=== PATIENT | female | born 1945 | race Caucasian/White ===

== ENCOUNTER 2022-04-08 09:42 | Outpatient (CLI) | payer MEDICARE, BC, SELFPAY | END 2022-04-08 09:43 | disposition home or self-care (01) | PROVIDERS: PCP Physician Assistant; Visit Provider Family Medicine | DX: M54.16 Radiculopathy, lumbar region (principal) | CPT/HCPCS: 64483; 64484; J1100; Q9966 ==

== ENCOUNTER 2022-05-16 13:05 | Outpatient (CLI) | payer MEDICARE, BC, SELFPAY ==
--- OUTSIDE RECORDS SUMMARY | 2022-05-16 13:08 | XMS_ITS | Encounter Summary ---
:1945 Author Organization [facility] Address [address] [place] [address] Care Team Providers Name Role Phone [facility] Unavailable [phone] Sita Koroma Primary Care Provider Encounter Details Date Type Department Care Team Description 08/19/2021 Travel Social History Tobacco Use Types Packs/Day Years Used Date Smoking Tobacco: Never Smokeless Tobacco: Never Alcohol Use Standard Drinks/Week Comments Not Currently 0 (1 standard drink = 0.6 oz pure alcoho l) Sex Assigned at Date Recorded Female 06/25/2021 3:37 PM CDT COVID-19 Exposure Response Date Recorded In the last month, have you been in contact with No / Unsure 08/19/2021 10:55 AM TOBACCO BUYER someone who was confirmed or suspected to have Coronavirus / COVID-19? documented as of this encounter Plan of Treatment Not on filedocumented as of this encounter Visit Diagnoses Not on filedocumented in this encounter Care Teams Picker And Sorter Load And Unload Relationship Specialty Start Date End Date [facility] PCP - Primary Care Clinic [place] [address] [place] [phone] Sita Koroma PCP - General Family Medicine 06/24/21 [address] [place] [address] documented as of this encounter
--- OUTSIDE RECORDS SUMMARY | 2022-05-16 13:08 | XMS_ITS | Encounter Summary ---
:1945 Author Organization [facility] Address [address] [place] [address] Care Team Providers Name Role Phone [facility] Unavailable [phone] Sita Koroma Primary Care Provider Encounter Details Date Type Department Care Team Description 11/14/2021 Travel Social History Tobacco Use Types Packs/Day Years Used Date Smoking Tobacco: Never Smokeless Tobacco: Never Alcohol Use Standard Drinks/Week Comments Not Currently 0 (1 standard drink = 0.6 oz pure alcoho l) Sex Assigned at Date Recorded Female 06/25/2021 3:37 PM CDT COVID-19 Exposure Response Date Recorded In the last month, have you been in contact Unable to assess 11/14/2021 7:15 AM CDT with someone who was confirmed or suspected to have Coronavirus / COVID-19? documented as of this encounter Plan of Treatment Not on filedocumented as of this encounter Visit Diagnoses Not on filedocumented in this encounter Care Teams Therapeutic Radiologist Relationship Specialty Start Date End Date [facility] PCP - Primary Care Clinic [place] [address] [place] [phone] Sita Koroma PCP - General Family Medicine 06/24/21 [address] [place] [address] documented as of this encounter
--- OUTSIDE RECORDS SUMMARY | 2022-05-16 13:08 | XMS_ITS | Encounter Summary ---
:1945 Author Organization [facility] Address [address] [place] [address] Care Team Providers Name Role Phone [facility] Unavailable [phone] Sita Koroma Primary Care Provider Encounter Details Date Type Department Care Team Description 08/12/2021 Travel Social History Tobacco Use Types Packs/Day Years Used Date Smoking Tobacco: Never Smokeless Tobacco: Never Alcohol Use Standard Drinks/Week Comments Not Currently 0 (1 standard drink = 0.6 oz pure alcoho l) Sex Assigned at Date Recorded Female 06/25/2021 3:37 PM CDT COVID-19 Exposure Response Date Recorded In the last month, have you been in contact with No / Unsure 08/12/2021 10:40 AM FUND ACCOUNTING MANAGER someone who was confirmed or suspected to have Coronavirus / COVID-19? documented as of this encounter Plan of Treatment Not on filedocumented as of this encounter Visit Diagnoses Not on filedocumented in this encounter Care Teams Distribution Dispatcher Relationship Specialty Start Date End Date [facility] PCP - Primary Care Clinic [place] [address] [place] [phone] Sita Koroma PCP - General Family Medicine 06/24/21 [address] [place] [address] documented as of this encounter
--- OUTSIDE RECORDS SUMMARY | 2022-05-16 13:08 | XMS_ITS | Encounter Summary ---
:1945 Author Organization [facility] Address [address] [place] [address] Care Team Providers Name Role Phone [facility] Unavailable [phone] Sita Koroma Primary Care Provider Reason for Visit Reason Comments Memory loss Other (Routine) - Authorized Specialty Diagnoses / Procedures Referred By Contact Refer red To Contact Diagnoses Memory deficit Eli Srivastava MD Procedures [facility] OT APPOINTMENT [address] [place] [address] Referral ID Status Reason Start Date Expiration Date Visits V isits Requested Authorized [id number] Authorized 08/05/2021 8 8 Encounter Details Date Type Department Care Team Description 08/12/2021 Occupational Therapy [facility] Nahum Kerns M leeds deficit (Primary Dx); of Neurology - [place] OT Impaired instrumental activi ties of daily living (IADL) [address] [phone] Social History Tobacco Use Types Packs/Day Years Used Date Smoking Tobacco: Never Smokeless Tobacco: Never Alcohol Use Standard Drinks/Week Comments Not Currently 0 (1 standard drink = 0.6 oz pure alcoho l) Sex Assigned at Date Recorded Female 06/25/2021 3:37 PM CDT COVID-19 Exposure Response Date Recorded In the last month, have you been in contact with No / Unsure 08/12/2021 10:40 AM DATABASE DESIGN ANALYST someone who was confirmed or suspected to have Coronavirus / COVID-19? documented as of this encounter Progress Notes Nahum Kerns OT - 08/12/2021 11:00 AM CST [facility] of Neurology [facility] Services Outpatient Occupational Therapy Progress Note Reason for Visit: Memory loss SUBJECTIVE Tameka Alexia Hale, a 76 y.o. female presents today. Pt reports continued difficulty gettingthings accomplished each day as she struggles to get motivated. Pt does acknowledge difficulty with depression and anxiety at times. OBJECTIVE Current Objective Findings: None today Today's Intervention: Self-Care/home management x60 mins OT took time to review pt's current scheduling system and new calendar for 2021. Pt currently keeps 3-4 calendars all throughout the house-pt occasionally checks all of them throughout the days. OT encouraged pt to utilize only x1 calendar to ensure accuracy and waste time transferring info into 4 locations. In addition, OT instructed pt to sit down with urban planner each morning and write out activities to better organize her day. OT assisted patient with completing urban planner for today as well as organize activities for rest of theweek. Pt will trial this week and report back next week. OT also answered questions regarding diagnosis, treatments, scans, and neuropsych testing. Interventions discussed with patient and consent obtained. Treatment Time: Timed code treatment minutes: 60 minutes. Total time: 60 minutes. Current home exercise program list: memory, urban planner org ASSESSMENT Pt left session very motivated and pleased with new organization system and plan for the week ahead.Pt would benefit significantly from increased daily planning and regular routines which include exercise, socialization and cognitive challenges. Cont OT 1x per week. Certification Period Start Date: 08/05/21 End Date: 11/03/21 ?? Goals: Short-term goals to be met in 6 weeks: -Patient will verbalize/demonstrate understanding of cognitive home program to work towards improved cognitive functioning for ADLs/IADLs. ?? Long-term goals to be met in 12 weeks: -Patient/family will verbalize understanding of cognitive assessment results and recommendations forsafety at home. -Patient will verbalize/demonstrate understanding of compensatory memory strategies to allow for increased independence with (i.e. medications, daily schedule, home management). PLAN Contextual memory test, review urban planner use. Occurrence Codes: Date of Onset of Impairment: 07/29/2021 Date of OT Care Plan Established or Reviewed: 08/05/2021 Date OT Treatment Started: 08/05/2021 TOB: 743 Nahum Kerns OT BASE DESIGN ANALYST documented in this encounter Plan of Treatment Not on filedocumented as of this encounter Visit Diagnoses Diagnosis Memory deficit - Primary Memory loss Impaired instrumental activities of basilio y living (IADL) documented in this encounter Care Teams Manager Rfid Relationship Specialty Start Date End [facility] [place] [address] [place] [phone] Sita Koroma PCP - General Family Medicine 06/24/21 [address] [place] [address] documented as of this encounter
--- OUTSIDE RECORDS SUMMARY | 2022-05-16 13:08 | XMS_ITS | Encounter Summary ---
:1945 Author Organization [facility] Address [address] [place] [address] Care Team Providers Name Role Phone [facility] Unavailable [phone] Sita Koroma Primary Care Provider Encounter Details Date Type Department Care Team Description 09/16/2021 Travel Social History Tobacco Use Types Packs/Day Years Used Date Smoking Tobacco: Never Smokeless Tobacco: Never Alcohol Use Standard Drinks/Week Comments Not Currently 0 (1 standard drink = 0.6 oz pure alcoho l) Sex Assigned at Date Recorded Female 06/25/2021 3:37 PM CDT COVID-19 Exposure Response Date Recorded In the last month, have you been in contact with No / Unsure 09/16/2021 11:05 AM SAWMILL MANAGER someone who was confirmed or suspected to have Coronavirus / COVID-19? documented as of this encounter Plan of Treatment Not on filedocumented as of this encounter Visit Diagnoses Not on filedocumented in this encounter Care Teams Impregnator And Drier Helper Relationship Specialty Start Date End Date [facility] PCP - Primary Care Clinic [place] [address] [place] [phone] Sita Koroma PCP - General Family Medicine 06/24/21 [address] [place] [address] documented as of this encounter
--- OUTSIDE RECORDS SUMMARY | 2022-05-16 13:08 | XMS_ITS | Encounter Summary ---
:[address] [facility] Address [address] [place] [address] Care Team Providers Name Role Phone [facility] Unavailable [phone] Sita Koroma Primary Care Provider Encounter Details Date Type Department Care Team Description 09/09/2021 Travel Social History Tobacco Use Types Packs/Day Years Used Date Smoking Tobacco: Never Smokeless Tobacco: Never Alcohol Use Standard Drinks/Week Comments Not Currently 0 (1 standard drink = 0.6 oz pure alcoho l) Sex Assigned at Date Recorded Female 06/25/2021 3:37 PM CDT COVID-19 Exposure Response Date Recorded In the last month, have you been in contact with No / Unsure 09/09/2021 11:04 AM VETERINARY ASSISTANT TECHNICIAN someone who was confirmed or suspected to have Coronavirus / COVID-19? documented as of this encounter Plan of Treatment Not on filedocumented as of this encounter Visit Diagnoses Not on filedocumented in this encounter Care Teams Dovetailer Relationship Specialty Start Date End Date [facility] PCP - Primary Care Clinic [place] [address] [place] [address] Sita Koroma PCP - General Family Medicine 06/24/21 [address] [place] [address] documented as of this encounter
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
--- OUTSIDE RECORDS SUMMARY | 2022-05-16 13:08 | XMS_ITS | Encounter Summary ---
:1945 Author Organization [facility] Address [address] [place] [address] Care Team Providers Name Role Phone [facility] Unavailable [phone] Sita Koroma Primary Care Provider Encounter Details Date Type Department Care Team Description 09/04/2021 Travel Social History Tobacco Use Types Packs/Day Years Used Date Smoking Tobacco: Never Smokeless Tobacco: Never Alcohol Use Standard Drinks/Week Comments Not Currently 0 (1 standard drink = 0.6 oz pure alcoho l) Sex Assigned at Date Recorded Female 06/25/2021 3:37 PM CDT COVID-19 Exposure Response Date Recorded In the last month, have you been in contact Unable to assess 09/04/2021 7:21 AM MARINE SERVICE OPERATOR with someone who was confirmed or suspected to have Coronavirus / COVID-19? documented as of this encounter Plan of Treatment Not on filedocumented as of this encounter Visit Diagnoses Not on filedocumented in this encounter Care Teams Tailing Hand Relationship Specialty Start Date End Date [facility] PCP - Primary Care Clinic [place] [address] [place] [phone] Sita Koroma PCP - General Family Medicine 06/24/21 [address] [place] [address] documented as of this encounter
--- OUTSIDE RECORDS SUMMARY | 2022-05-16 13:08 | XMS_ITS | Encounter Summary ---
:1945 Author Organization [facility] Address [address] [place] [id number] Care Team Providers Name Role Phone [facility] Unavailable [phone] Sita Koroma Primary Care Provider Reason for Visit Reason Comments Memory loss Other (Routine) - Authorized Specialty Diagnoses / Procedures Referred By Contact Refer red To Contact Diagnoses Memory deficit Eli Srivastava MD Procedures [facility] OT APPOINTMENT [address] [place] [address] Referral ID Status Reason Start Date Expiration Date Visits V isits Requested Authorized [id number] Authorized 08/05/2021 8 8 Encounter Details Date Type Department Care Team Description 09/02/2021 Occupational Therapy [facility] Nahum Kerns M [place] deficit (Primary Dx); of Neurology - [place] OT Impaired instrumental activi ties of daily living (IADL) [address] [id number] Social History Tobacco Use Types Packs/Day Years Used Date Smoking Tobacco: Never Smokeless Tobacco: Never Alcohol Use Standard Drinks/Week Comments Not Currently 0 (1 standard drink = 0.6 oz pure alcoho l) Sex Assigned at Date Recorded Female 06/25/2021 3:37 PM CDT COVID-19 Exposure Response Date Recorded In the last month, have you been in contact with No / Unsure 09/02/2021 11:53 AM [facility] someone who was confirmed or suspected to have Coronavirus / COVID-19? documented as of this encounter Progress Notes Nahum Kerns OT - 09/02/2021 11:45 AM CST [facility] of Neurology Rehabilitation Services Outpatient Occupational Therapy Progress Note Reason for Visit: Memory loss SUBJECTIVE Tameka Hale, a 76 y.o. female presents today. Pt reports no new concerns OBJECTIVE Current Objective Findings: none today Today's Intervention: Therapeutic activities [id number] -Took time to review current status and events over holidays. Pt reports good success with managing schedule and tasks required for hosting during holidays. Pt has not been able to trial many cognitivehome programs due to busy schedule. Pt reports increased concerns with regards to daily night sweats and now lack of sleep. Pt has questions with regards to reduction in klonopin. OT strongly encouraged pt to contact Dr Srivastava to discuss treatment options for anxiety and reducing night sweats. In order to further challenge and improve processing and attention, patient participated in the following therapeutic challenges: -multi command letter cancellation challenge-pt completed with >90% -pt demonstrated good focus and processing during task. -Reviewed the importance of attention has on cognitive success with tasks. Pt verbalized good understanding. Interventions discussed with patient and consent obtained. Treatment Time: Timed code treatment minutes: 45 minutes. Total time: 45 minutes. Current home exercise program list: memory, mission planner org ASSESSMENT Pt tolerated session well today. Pt concerned about decreasing klonopine and negative impacts of decreased sleep due to nights sweats vs continued shelter use (OT encouraged pt to contact Dr srivastava to discuss options). Pt would benefit significantly from increased daily planning and regular routines which include exercise, socialization and cognitive challenges. Cont OT 1x per week. Certification Period Start Date: 08/05/21 End Date: 11/03/21 ?? Goals: Short-term goals to be met in 6 weeks: -Patient will verbalize/demonstrate understanding of cognitive home program to work towards improved cognitive functioning for ADLs/IADLs . Addressing ?? Long-term goals to be met in 12 weeks: -Patient/family will verbalize understanding of cognitive assessment results and recommendations forsafety at home. -Patient will verbalize/demonstrate understanding of compensatory memory strategies to allow for increased independence with (i.e. medications, daily schedule, home management). PLAN Brainwaves challenges, review mission planner use. Occurrence Codes: Date of Onset of Impairment: 07/29/2021 Date of OT Care Plan Established or Reviewed: 08/05/2021 Date OT Treatment Started: 08/05/2021 TOB: 743 Nahum Kerns OT [facility] documented in this encounter Plan of Treatment Not on filedocumented as of this encounter Visit Diagnoses Diagnosis Memory deficit - Primary Memory loss Impaired instrumental activities of basilio y living (IADL) documented in this encounter Care Teams Grinding Machine Operator Relationship Specialty Start Date End Date [facility] PCP - [facility] [place] [address] [place] [phone] Sita Koroma PCP - General Family Medicine 06/24/21 [address] [place] [address] documented as of this encounter
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
--- OUTSIDE RECORDS SUMMARY | 2022-05-16 13:08 | XMS_ITS | Encounter Summary ---
:1945 Author Organization [facility] Address [address] [place] [address] Care Team Providers Name Role Phone [facility], [facility] Unavailable [phone] Sita Koroma Primary Care Provider Reason for Visit Reason Comments Follow up Encounter Details Date Type Department Care Team Description 09/04/2021 Virtual Visit [facility] Srivastava MD Cognitive change Neurology - [address] (Primary Dx) [address] [place] [address] [place] [phone] Social History Tobacco Use Types Packs/Day Years Used Date Smoking Tobacco: Never Smokeless Tobacco: Never Alcohol Use Standard Drinks/Week Comments Not Currently 0 (1 standard drink = 0.6 oz pure alcoho l) Sex Assigned at Date Recorded Female 06/25/2021 3:37 PM CDT COVID-19 Exposure Response Date Recorded In the last month, have you been in contact Unable to assess 09/04/2021 7:21 AM COUNT ROOM CLERK with someone who was confirmed or suspected to have Coronavirus / COVID-19? documented as of this encounter Progress Notes Eli Srivastava MD - 09/04/2021 12:30 PM CST Last 07/02/21, 07/29/21 ? INTERIM OT on board- helping Been on Klonopin (1mg/d - night sweat at 1mg ) for 26 yr - Rxed by therapist SLIP MAKER PRIOR Still has memory issue - forget appointment Forget what she placed items Forget what she discussed with her banking attorney ?? ROS Numbness??feet hands + Mother/brother TIA ROWELL+ occipital ridge area Weakness ?? Patient denies any LOC, vision change (double [...] the left eye cosed Romberg??+ Gait: normal mary's igloo/unsatble??tandem/heel/toe gait. ?? MOCA 29/30 ?? 4/5 RECALL ?? ASSESSMENT/PLAN #Cognitive change- MOCA 29/30- 4/5 recall ?? Risk- multiple concussion, depression, anxiety, chronic klonopin DDx Anxiety, depression, stress ?? - On group PTSD therapy?? - MRI??brain W WO 07/10/21- No acute intracranial abnormality- mild CMVID - Neuropsychology [...] other medication by therapist - OT for memory - Discussed the importance of exercise -Discussed importance of sleep hygiene, regular meal ( avoid carbohydrate, sugar, sugar substitute, processed meat, gluten, dairy), hydration and exercise. - Hydration goal- 133 oz17 cups - The importance of exercise was discussed - Sleep - insomnia intermittent #Chronic benzodiazepam usage - Recommend seeing psychiatrist to taper Benzo and to replace with other alternative ?? total time : 21minutes I spent above time on a date [...] distant site at provider s home in [place], [place]. Verbal consent was given to participate visit using Telephone. This visit occurred during the Coronavirus (COVID-19) Public Health Emergency and was re quested by patient due to contact concerns. I discussed with the patient the nature of our telemedicine visits, that: I would evaluate the patient and recommend diagnostics and treatments based on my assessment and the exam is limited due to the nature of telemedicine visit. Our sessions are not being recorded and that personal health information is protected Our team would provide followup care in person if/when the patient needs it. Patient identification was verified before the start of the encounter. T ROOM CLERK documented in this encounter Plan of Treatment Not on filedocumented as of this encounter Visit Diagnoses Diagnosis Cognitive change - Primary Other signs and symptoms involving cogni tion documented in this encounter Care Teams Speech Language Pathologist Assistant Relationship Specialty Start Date End Date [facility] PCP - Primary Care Clinic [place] [address] [place] [address] Sita Koroma PCP - General Family Medicine 06/24/21 [address] [place] [address] documented as of this encounter
--- OUTSIDE RECORDS SUMMARY | 2022-05-16 13:08 | XMS_ITS | Encounter Summary ---
:1945 Author Organization [facility] Address [address] [place] [address] Care Team Providers Name Role Phone [facility] Unavailable [phone] Sita Koroma Primary Care Provider Reason for Visit Reason Comments Memory loss Encounter Details Date Type Department Care Team Description 09/09/2021 Occupational Therapy [facility] Nahum Kerns M [place] deficit (Primary Dx); of Neurology - [place] OT Impaired instrumental activi ties of daily living (IADL) [address] [place] [phone] Social History Tobacco Use Types Packs/Day Years Used Date Smoking Tobacco: Never Smokeless Tobacco: Never Alcohol Use Standard Drinks/Week Comments Not Currently 0 (1 standard drink = 0.6 oz pure alcoho l) Sex Assigned at Date Recorded Female 06/25/2021 3:37 PM CDT COVID-19 Exposure Response Date Recorded In the last month, have you been in contact with No / Unsure 09/09/2021 11:04 AM SOFTWARE DEPLOYMENT ENGINEER someone who was confirmed or suspected to have Coronavirus / COVID-19? documented as of this encounter Progress Notes Nahum Kerns OT - 09/09/2021 11:00 AM CST [facility] Neurology Rehabilitation Services Outpatient Occupational Therapy Progress Note Reason for Visit: Memory loss SUBJECTIVE Tameka Hale, a 76 y.o. female presents today. Pt reports no new concerns OBJECTIVE Current Objective Findings: none today Today's Intervention: Therapeutic activities [id number] -reviewed time management skills and use of landscape architect and planner. Pt is doing well with logging all of her appts and has not missed any appointments recently. OT encouraged increased structure and planning into each day. OT instructed pt to begin to write out daily schedule either the night before or each morning to better manage time and increase activity. Pt agreed In order to further challenge and improve [...] minutes. Current home exercise program list: memory, landscape architect and planner org ASSESSMENT Pt doing well overall and continues to make good progress towards goals. Pt would benefit significantly from increased daily [...] schedule, home management). PLAN Brainwaves challenges, review landscape architect and planner use. Occurrence Codes: Date of Onset of Impairment: 07/29/2021 Date of OT Care Plan Established or Reviewed: 08/05/2021 Date OT Treatment Started: 08/05/2021 TOB: 743 Nahum Kerns OT WARE DEPLOYMENT ENGINEER documented in this encounter Plan of Treatment Not on filedocumented as of this encounter Visit Diagnoses Diagnosis Memory deficit - Primary Memory loss Impaired instrumental activities of basilio y living (IADL) documented in this encounter Care Teams Fishing Rod Assembler Relationship Specialty Start Date [facility] [place] [address] [place] [address] Sita Koroma PCP - General Family Medicine 06/24/21 [address] [place] [address] documented as of this encounter
--- OUTSIDE RECORDS SUMMARY | 2022-05-16 13:08 | XMS_ITS | Encounter Summary ---
:1945 Author Organization [facility] Address [address] [place] [address] Care Team Providers Name Role Phone [facility] Unavailable [phone] Sita Koroma Primary Care Provider Reason for Visit Reason Comments Memory loss Other (Routine) - Authorized Specialty Diagnoses / Procedures Referred By Contact Refer red To Contact Diagnoses Memory deficit Eli Srivastava MD Procedures [facility] OT APPOINTMENT [address] [place] [address] Referral ID Status Reason Start Date Expiration Date Visits V isits Requested Authorized [id number] Authorized 08/05/2021 8 8 Encounter Details Date Type Department Care Team Description 09/30/[address] [facility] Nahum Kerns M [place] deficit (Primary Dx); of Neurology - [place] OT Impaired instrumental activi ties of daily living (IADL) [address] [phone] Social History Tobacco Use Types Packs/Day Years Used Date Smoking Tobacco: Never Smokeless Tobacco: Never Alcohol Use Standard Drinks/Week Comments Not Currently 0 (1 standard drink = 0.6 oz pure alcoho l) Sex Assigned at Date Recorded Female 06/25/2021 3:37 PM CDT COVID-19 Exposure Response Date Recorded In the last month, have you been in contact with No / Unsure 09/30/2021 10:59 AM SPANISH TUTOR someone who was confirmed or suspected to have Coronavirus / COVID-19? documented as of this encounter Progress Notes Nahum Kerns OT - 09/30/2021 11:00 AM CST [facility] Neurology Rehabilitation Services Outpatient Occupational Therapy Progress Note/DC summary Reason for Visit: No chief complaint on file. SUBJECTIVE Tameka Hale, a 76 y.o. female presents today. OBJECTIVE Current Objective Findings: none today Today's Intervention: Therapeutic activity x45 mins OT took time to review current status with adl/iadls. Pt reports improved daily activities. Pt is using her process planner and is now completing joe chi and her PT shoulder exercises each day. OT reviewed compensatory memory strategies and increased organizational strategies to improve functioning. Pt verbalized good understanding and good use. Reviewed cognitive home exercise programs and aides. Pt verbalized good understanding. Interventions discussed with patient and consent obtained. Treatment Time: Timed code treatment minutes: 45 minutes. Total time: 45 minutes. Current home exercise program list: memory, process planner org ASSESSMENT Pt doing well overall and has Met all current OT goals. Pt is benefiting from increased daily organization and incorporating scheduled physical, cognitive and social activities each day. Pt is also dealing with her medication changes with her Psych team and will slowly titrate klonopin use. No furtherOT at this time. Pt janene benefit from continued OT in the future. Certification Period Start Date: 08/05/21 End Date: 11/03/21 ?? Goals: Short-term goals to be met in 6 weeks: -Patient will verbalize/demonstrate understanding of cognitive home program to work towards improved cognitive functioning for ADLs/IADLs Goal MET ?? Long-term goals to be met in 12 weeks: -Patient/family will verbalize understanding of cognitive assessment results and recommendations forsafety at home. Goal MET -Patient will verbalize/demonstrate understanding of compensatory memory strategies to allow for increased independence with (i.e. medications, daily schedule, home management). Goal MET PLAN DC OT Occurrence Codes: Date of Onset of Impairment: 07/29/2021 Date of OT Care Plan Established or Reviewed: 08/05/2021 Date OT Treatment Started: 08/05/2021 TOB: 744 Nahum Kerns OT ISH TUTOR documented in this encounter Plan of Treatment Not on filedocumented as of this encounter Visit Diagnoses Diagnosis Memory deficit - Primary Memory loss Impaired instrumental activities of basilio y living (IADL) documented in this encounter Care Teams Sludge Mill Operator Relationship Specialty Start Date End Date Clinic, [facility] PCP - Primary Care Clinic [place] [address] [place] [phone] Sita Koroma PCP - General Family Medicine 06/24/21 [address] [place] [address] documented as of this encounter
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
--- OUTSIDE RECORDS SUMMARY | 2022-05-16 13:09 | XMS_ITS ---
:1945 Author Care Team Providers Name Role Phone Cesilia Rodriguez Vamsi Primary Care Provider Unavailable Allergies Code Code System Name Reaction Severity Status Onset 2670 RxNorm Codeine ? ? Active 10/18/2019 Penicillin ? ? Active 0 Vioxx ? ? Active 10/18/2019 723 RxNorm Amoxicillin ? ? Active ? Medications Name Status Start Date Stop Date ? ? betamethasone dipropionate 0.05 % lotion Active ? Not available cefdinir 300 mg capsule Active ? Not avai lable cephalexin 500 mg capsule Active ? Not av ailable ciprofloxacin 0.3 % eye drops Active ? No t available ciprofloxacin 500 mg tablet Active ? Not available clonazepam 1 mg tablet Active ? Not avail able estradiol 0.01% (0.1 mg/gram) vaginal cream Active ? Not available fluconazole 150 mg tablet Active ? Not av ailable furosemide 20 mg tablet Active ? Not avai lable hydroxyzine HCl 25 mg tablet Active ? Not available hydroxyzine pamoate 25 mg capsule Active ? Not available olopatadine 0.2 % eye drops Active ? Not available oxycodone 5 mg tablet Active ? Not availa ble oxycodone-acetaminophen 5 mg-325 mg tablet Active ? Not available pantoprazole 20 mg tablet,delayed release Active ? Not available sulfamethoxazole 800 mg-trimethoprim 160 mg tablet Active ? Not available tizanidine 4 mg tablet Active ? Not avail able valacyclovir 1 gram tablet Active ? Not a vailable Problems Name Status Onset Date Source ? Urinary Tract Infectious Disease Active 10/18/2019 History Procedures None recorded. Results Lab Results Date Name Specimen Result Interpretation Description Value Range Status Address ? 05/25/2020 Culture, UR ? Final Report microbiology ? Final [place] Urine results Urology - John Aiken: [address] [facility] [address], [place] 05/25/2020 Urinalysis, ? pH-Status 6.5 ? ? Dipstick ? ? ? Blood-Status Moderate ? Leuko-Status Large ? ? ? Urinalysis, ? No observation ? ? ? Dipstick recorded. Past Encounters None recorded. Social History None recorded. Vaccine List Notes: pt. has no pneumo vaccines Plan of Care Reminders Provider Appointments None recorded. ? ? Lab None recorded. ? ? Referral None recorded. ? ? Procedures None recorded. ? ? Surgeries None recorded. ? ? Imaging None recorded. ? ? Vitals None recorded.
--- OUTSIDE RECORDS SUMMARY | 2022-05-16 13:09 | XMS_ITS | Encounter Summary ---
:1945 Author Organization [facility] Address [address] [place] [id number] Care Team Providers Name Role Phone Sita Koroma Lisandra Primary Care Provider Unavailable Reason for Visit Reason Comments Chest Pain Encounter Details Date Type Department Care Team Description 09/24/2020 [facility] Phoenix Spivey MD Palpitations (Primary Dx); [facility] Emergency [facility] Anxiety; Dept PA Pulmonary nodules; [address] [facility] [address] James drenal nodule (H); [facility] 100 Renal cyst[place] [address] [place], [place] [id number] (Wo rk) Social History Tobacco Use Types Packs/Day Years Used Date Never Assessed Sex Assigned at Date Recorded Not on file COVID-19 Exposure Response Date Recorded In the last month, have you been in contact with No / Unsure 09/24/2020 12:35 PM [facility] OF FOOD [facility] NUTRITION SERVICES someone who was confirmed or suspected to have Coronavirus / COVID-19? documented as of this encounter Last Filed Vital Signs Vital Sign Reading Time Taken Comments Blood Pressure 135/66 09/24/2020 12:40 PM [facility] Pulse 73 09/24/2020 4:45 PM [facility] Temperature 36.3 ??C (97.4 ??F) 09/24/2020 12:40 PM [facility] Respiratory Rate 14 09/24/2020 5:45 PM [facility] Oxygen Saturation 95% 09/24/2020 12:40 PM [facility] Inhaled Oxygen Concentration - - Weight 90.7 kg (200 lb) 09/24/2020 12:40 PM [facility] SERVICES Height 160 cm (5' 3) 09/24/2020 12:40 PM [facility] SERVICES Body Mass Index 35.43 09/24/2020 12:40 PM [facility] documented in this encounter Discharge Instructions Discharge InstructionsPhoenix Spivey MD - 09/24/2020 5:41 PM CST Discharge Instructions Palpitations Palpitations are an unusual awareness of your heartbeat. People often describe this as the heart skipping, fluttering, racing, irregular, or pounding. At this time, your provider has found no signs that your palpitations are due to a serious or life-threatening condition. However, sometimes there is aserious problem that does not show up right away. Palpitations can be caused by caffeine, cigarettes, diet pills, energy drinks or supplements, other stimulants, and medications and street drugs. They can also be caused by anxiety, hormone conditions such as high thyroid, and other medical conditions. Sometimes they are a sign of abnormal rhythm in the heart. At this time, your provider did not find any dangerous cause of your symptoms. Generally, every Emergency Department visit should have a follow-up clinic visit with either a primary or a specialty clinic/provider. Please follow-up as instructed by your emergency provider today. Return to the Emergency Department if: You get chest pain or tightness. You are short of breath. You get very weak or tired. You pass out or faint. Your heart rate is over 120 beats per minute for more than 10 minutes while you are resting. You have anything else that worries you. What can I do to help myself? Fill any prescriptions the provider gave you and take them right away. Follow your provider???s instructions about the prescription medicines you are on. Sometimes the provider may tell you to stop taking a medicine or change the dose. If you smoke, this may be a good time to quit! The less you can smoke, the better. Do not use energy drinks, diet pills, or stimulants. Limit your use of caffeine. If you were given a prescription for medicine here today, be sure to read all of the information (including the package insert) that comes with your prescription. This will include important information about the medicine, its side effects, and any warnings that you need to know about. The pharmacist who fills the prescription can provide more information and answer questions you may have about the medicine. If you have questions or concerns that the pharmacist cannot address, please call or return to the Emergency Department. Remember that you can always come back to the Emergency Department if you are not able to see your regular provider in the amount of time listed above, if you get any new symptoms, or if there is anything that worries you. [facility] AttachmentsThe following attachments cannot be sent through Care Everywhere. Anxiety Reaction (Kazakh)(s) Common Questions about Lung Nodules (Kazakh) documented in this encounter ED Notes Nathanael Tamayo RN - 09/24/2020 3:12 PM CST Medical student at bedside [facility] Chelsea Patterson RN - 09/24/2020 12:48 PM CST Pt states that she felt a flutter in her chest; States that she called her doctor today and they told her to come to the ED. [facility] Phoenix Spivey MD - 09/24/2020 12:35 PM CST History Chief Complaint Chest Pain HPI Tameka Rosales is a 75 year old female with a history of anxiety who presents for evaluation of a chest flutter that occurred about 1.5 weeks ago. She notes that she called her primary care provider and talked to them about the chest flutter episode who told her to come into the ED for evaluation. Tameka is unable to drive herself due to a foot injury, and did not want to inconvenience her son to drive her in, so she waited until he was available to do this. Today, she was able to come in. She notes some left arm pain but explains this has been this way since she received her shingles vaccine 2 weeks ago. Tameka notes that she has chronic, bilateral lower extremity edema which she endorses close follow up with her primary for. Additionally, Tameka notes that she has been slowly weaning herself of her Klonopin as she read online that it causes brain damage. She has not told her psychiatrist about this. She also explains that her recently passed from a pneumonia and she has been working tirelessly to care for him. Now that he has passed, she is seeking to work on myself. Tameka also notes an episode of abdominal discomfort days ago. Review of Systems Cardiovascular: Positive for chest pain. Psychiatric/Behavioral: The patient is nervous/anxious. All other systems reviewed and are negative. Allergies NKDA Medications Clonopin Past Medical History Chronic Bilateral Lower Extremity Edema Anxiety Social History Tobacco use: no Alcohol use: no Drug use: no Marital Status: PCP: Sita Koroma Physical Exam Patient Vitals for the past 24 hrs: BP Temp Temp src Pulse Resp SpO2 Height Weight 09/24/20 1645 -- -- -- 73 11 -- -- -- 09/24/20 1630 -- -- -- -- 23 -- -- -- 09/24/20 1600 -- -- -- 73 23 -- -- -- 09/24/20 1547 -- -- -- 75 17 -- -- -- 09/24/20 1240 135/66 97.4 ??F (36.3 ??C) Temporal 70 14 95 % 1.6 m (5' 3) 90.7 kg (200 lb) Physical Exam General: Alert, appears well-developed and well-nourished. Cooperative. In mild distress, very anxious HEENT: Head: Atraumatic Ears: External ears are normal Mouth/Throat: Oropharynx is without erythema or exudate and mucous membranes are moist. Eyes: Conjunctivae normal and EOM are normal. No scleral icterus. CV: Normal rate, regular rhythm, normal heart sounds and radial pulses are 2+ and symmetric. No murmur. Resp: Breath sounds are clear bilaterally Non-labored, no retractions or accessory muscle use GI: Abdomen is soft, no distension, no tenderness. No rebound or guarding. No CVA tenderness bilaterally MS: Normal range of motion. No edema. Normal strength in all 4 extremities. Back atraumatic. No midline cervical, thoracic, or lumbar tenderness Skin: Warm and dry. No rash or lesions noted. Neuro: Alert. Normal strength. GCS: 15 Psych: Normal mood and affect. Emergency Department Course EKG Indication: Chest Pain Time: 1247 Rate 77 bpm. IA interval 180. QRS duration 84. QT/QTc 392/443. NSR Possible anterior infarct, age undetermined Abnormal ECG Read time: 1545 Read by Phoenix Spivey MD Imaging: Radiology findings were communicated with the patient who voiced understanding of the findings. CT Chest Pulmonary Embolism w Contrast Final Result IMPRESSION: 1. No evidence of pulmonary embolism. 2. Few scattered pulmonary nodules including 5 mm left upper lobe nodule, as per Fleischner's society criteria, for low risk patient no routine follow-up is recommended, and for high-risk patient, optional chest CT in 12 months can be considered. 3. 1.4 cm mildly hyperattenuating left renal lesion, indeterminate, could represent hemorrhagic/proteinaceous cyst versus less likely a renal neoplasm, can be further evaluated with renal ultrasound on nonemergent basis to confirm its cystic nature. 4. Bilateral adrenal nodules measure up to 1.4 cm on the right and 0.9 cm on the left, indeterminate, could represent adrenal adenomas, can be further evaluated with CT adrenal mass protocol. 5. Hepatic steatosis. LEVAR BARKSDALE MD Readings per Radiology Laboratory: Laboratory findings were communicated with the patient who voiced understanding of the findings. CBC: WBC: 8.1, HGB: 14.2, PLT: 284 BMP: Glucose 86, GFR: 58 (low), o/w WNL (Creatinine: 0.96) Troponin (1539): <0.015 D-dimer: 2.1 (high) TSH with Free T4 Reflex: 3.58 Magnesium: 2.1 Emergency Department Course: Reviewed: 153 I reviewed the patient's nursing notes, vitals, past medical records, Care Everywhere. Assessments: 1548 I physically examined the patient as documented above. 1700 I re-assessed the patient and updated them on the results of their workup thus far. Disposition: The patient was discharged to home. Impression & Plan Medical Decision Making: Tameka Rosales is a 75 year old female who presents for evaluation of palpitations, chest pain and anxiety. Thankfully her symptoms of chest pain were 1.5 weeks ago and she has no active CP here. InitialECG shows normal sinus rhythm with no ischemic changes. Troponin undetectable and low concern for ACS. A broad differential diagnosis was considered including SVT, Atrial fibrillation, ventricular arrhythmia, thyroid disease, acute electrolyte abnormality, drugs/medications, caffeine intake or other stimulants, medication side effect, anemia, heart disease, PE, etc. The workup and exam here in ED woul d indicate that supportive outpatient management is indicated. I doubt PE as patient' CT chest negative for PE. There were incidental findings documented on her diagnoses and also communicated at bedside. She'll follow up with PCP in one week to determine if urgent follow up or imaging is necessary regarding these incidental findings. Doubt acute coronary syndrome given symptoms and exam. Will have them follow up with PCP to discuss further outpatient testing in next one week. Return precautions understood and all questions answered before discharge. Diagnosis: ICD-10-CM 1. Palpitations R00.2 CBC with platelets differential Basic metabolic panel Troponin I TSH with free T4 reflex D dimer quantitative Magnesium Magnesium CANCELED: Magnesium 2. Anxiety F41.9 3. Pulmonary nodules R91.8 4. Adrenal nodule (H) E27.8 5. Renal cyst, left N28.1 Disposition: Discharged to home. Discharge Medications: New Prescriptions No medications on file Scribe Disclosure: Lyndon Chadwick, am serving as a scribe at 3:31 PM on 09/24/2020 to document services personally performed by Phoenix Spivey MD based on my observations and the provider's statements to me. Phoenix Spivey MD 09/24/20 175 [facility] documented in this encounter Plan of Treatment Not on filedocumented as of this encounter Procedures Procedure Name Priority Date/Time Associated Diagnosis Comme nts CT CHEST PULMONARY STAT 09/24/2020 5:22 PM Res ults for this EMBOLISM W CONTRAST [facility]ITION SERVICES procedur e are in the results section. CBC WITH PLATELETS & STAT 09/24/2020 3:39 PM Palpitations R esults for this DIFFERENTIAL [facility] procedure are i n the results section. TSH WITH FREE T4 STAT 09/24/2020 3:39 PM Palpitations Resul ts for this REFLEX [facility] procedure are i n the results section. TROPONIN I STAT 09/24/2020 3:39 PM Palpitations Results f or this [facility] procedure are i n the results section. MAGNESIUM Routine 09/24/2020 3:39 PM Palpitations Results f or this [facility] procedure are i n the results section. D DIMER QUANTITATIVE STAT 09/24/2020 3:39 PM Palpitations R esults for this [facility] procedure are i n the results section. BASIC METABOLIC PANEL STAT 09/24/2020 3:39 PM Palpitations Results for this [facility] procedure are i n the results section. EKG 12-LEAD, TRACING STAT 09/24/2020 12:47 Res ults for this ONLY PM [facility] procedure are i n the results section. documented in this encounter Results CT Chest Pulmonary Embolism w Contrast (09/24/2020 5:22 PM [facility]UTRITION SERVICES) Anatomical Region Laterality Modality Chest, SUBRAD CT BODY, UMP CT CHEST Comp uted Tomography Specimen (Source) Anatomical Location Collection Method / Collectio n Time Received Time / Laterality Volume Impressions 09/24/2020 5:40 PM [facility]UTRITION SERVICES IMPRESSION: 1. No evidence of pulmonary embolism. 2. Few scattered pulmonary nodules inclu ding 5 mm left upper lobe nodule, as per Fleischner's society crit eria, for low risk patient no routine follow-up is recommended, and fo r high-risk patient, optional chest CT in 12 months can be considered. 3. 1.4 cm mildly hyperattenuating left r enal lesion, indeterminate, could represent hemorrhagic/proteinaceou s cyst versus less likely a renal neoplasm, can be further evaluated with renal ultrasound on nonemergent basis to confirm its cystic nature. 4. Bilateral adrenal nodules measure up to 1.4 cm on the right and 0.9 cm on the left, indeterminate, could rep resent adrenal adenomas, can be further evaluated with CT adrenal mas s protocol. 5. Hepatic steatosis. LEVAR BARKSDALE MD Narrative 09/24/2020 5:40 PM [facility] CT CHEST PULMONARY EMBOLISM WITH CONTRAST ??09/24/2020 5:22 PM HISTORY: ??Chest pain, pulmonary embolis m suspected, low/intermediate prob, positive D-dimer. TECHNIQUE: Scans obtained from the apice s through the diaphragm with IV contrast. 73mL Isovue-370 IV injected . Radiation dose for this scan was reduced using automated exposure con trol, adjustment of the mA and/or kV according to patient size, or iterative reconstruction technique. COMPARISON: ??None available FINDINGS: Chest/mediastinum: No evidence of pulmon nicole embolism. No cardiomegaly or significant pericardial effusion. No significant mediastinal, hilar or axillary lymphadenopathy. Bilateral b reast implants. Lungs and pleura: No pleural effusion or pneumothorax. Bibasilar pulmonary opacities, likely atelectatic. Few scattered pulmonary nodules including 5 mm left upper lobe n odule (series 5 image 74). Upper abdomen: Limited evaluation of the upper abdomen due to lack of coverage and timing of contrast. 1.4 cm mildly hyperattenuating partially exophytic lesion arising from the lateral aspect of the interpolar region of the left kidney (se rick 3 image 143), indeterminate, could represent hemorrhag ic/proteinaceous cyst versus less likely neoplasm. 1.4 cm right adren al nodule (series 3 image 121) and 0.9 cm left adrenal nodule (series 3 image 121). Right upper quadrant postcholecystectomy clips. Diff use hypoattenuation of the liver, likely due to underlying hepatic steatosis. Bones and soft tissue: Multilevel degene rative changes of the spine. No suspicious osseous lesion. Procedure Note Titus-Levar Bernard MD - 09/24/2020Forma tting of this note might be different from the original. CT CHEST PULMONARY EMBOLISM WITH CONTRAS T 09/24/2020 5:22 PM HISTORY: Chest pain, pulmonary embolism suspected, low/intermediate prob, positive D-dimer. TECHNIQUE: Scans obtained from the apice s through the diaphragm with IV contrast. 73mL Isovue-370 IV injected . Radiation dose for this scan was reduced using automated exposure con trol, adjustment of the mA and/or kV according to patient size, or iterative reconstruction technique. COMPARISON: None available FINDINGS: Chest/mediastinum: No evidence of pulmon nicole embolism. No cardiomegaly or significant pericardial effusion. No significant mediastinal, hilar or axillary lymphadenopathy. Bilateral b reast implants. Lungs and pleura: No pleural effusion or pneumothorax. Bibasilar pulmonary opacities, likely atelectatic. Few scattered pulmonary nodules including 5 mm left upper lobe n odule (series 5 image 74). Upper abdomen: Limited evaluation of the upper abdomen due to lack of coverage and timing of contrast. 1.4 cm mildly hyperattenuating partially exophytic lesion arising from the lateral aspect of the interpolar region of the left kidney (se rick 3 image 143), indeterminate, could represent hemorrhag ic/proteinaceous cyst versus less likely neoplasm. 1.4 cm right adren al nodule (series 3 image 121) and 0.9 cm left adrenal nodule (series 3 image 121). Right upper quadrant postcholecystectomy clips. Diff use hypoattenuation of the liver, likely due to underlying hepatic steatosis. Bones and soft tissue: Multilevel degene rative changes of the spine. No suspicious osseous lesion. IMPRESSION: 1. No evidence of pulmonary embolism. 2. Few scattered pulmonary nodules inclu ding 5 mm left upper lobe nodule, as per Fleischner's society crit eria, for low risk patient no routine follow-up is recommended, and fo r high-risk patient, optional chest CT in 12 months can be considered. 3. 1.4 cm mildly hyperattenuating left r enal lesion, indeterminate, could represent hemorrhagic/proteinaceou s cyst versus less likely a renal neoplasm, can be further evaluated with renal ultrasound on nonemergent basis to confirm its cystic nature. 4. Bilateral adrenal nodules measure up to 1.4 cm on the right and 0.9 cm on the left, indeterminate, could rep resent adrenal adenomas, can be further evaluated with CT adrenal mas s protocol. 5. Hepatic steatosis. LEVAR BARKSDALE MD Phoenix Spivey MD IMG CT ORDERABLES Magnesium (09/24/2020 3:39 PM [facility] SERVICES) athologist Signature Magnesium 2.1 1.6 - 2.3 09/24/2020 [place] mg/dL 4:19 PM [facility] OF FOOD AND NUTRITION SERVICES [facility] Specimen Anatomical Collection Method Collection Time Receive d Time (Source) Location / / Volume Laterality 09/24/2020 3:39 PM 3:58 [facility]ITION SERVICES PM [facility] SERVICES Phoenix Spivey MD LAB - BLOOD ORDERABLES Performing Organization Address City/State/ZIP Code Phon e Number [facility] [address] [phone] [facility] [address] [id number], [place] [phone] (ABNORMAL) D dimer quantitative (09/24/2020 3:39 PM [facility]UTRITION SERVICES) athologist Signature D Dimer 2.1 (H) 0.0 - 0.50 09/24/2020 [place] ug/ml FEU 4:12 PM [facility]UTRITION SERVICES [facility] Comment: This D-dimer assay is intended for use i n conjunction with a clinical pretest probability assessment model to exclude pulmonary embolism (PE) and deep venous thrombosis (DVT) in outpatients s uspected of PE or DVT. The cut-off value is 0.5 ug/mL FEU. Specimen Anatomical Collection Method Collection Time Receive d Time (Source) Location / / Volume Laterality Blood specimen 09/24/2020 3:39 PM 021 3:58 (specimen) [facility]UTRITION SERVICES PM [facility]UTRITION SERVICES Phoenix Spivey MD LAB - BLOOD ORDERABLES Performing Organization Address City/State/ZIP Code Phon e Number [facility] [address] [place] [address] [phone] [facility] [address] [place] [address], [place] [phone] TSH with free T4 reflex (09/24/2020 3:39 PM [facility]UTRITION SERVICES) athologist Signature TSH 3.58 0.40 - 4.00 09/24/2020 [place] mU/L 4:27 PM [facility]UTRITION SERVICES [facility] Specimen Anatomical Collection Method Collection Time Receive d Time (Source) Location / / Volume Laterality Blood specimen 09/24/2020 3:39 PM 021 3:58 (specimen) [facility]ITION SERVICES PM [facility]UTRITION SERVICES Phoenix Spivey MD LAB - BLOOD ORDERABLES Performing Organization Address City/State/ZIP Code Phon e Number [facility] [address] [place] [address] [phone] [facility] [address] [place] [address], [place] [phone] Troponin I (09/24/2020 3:39 PM [facility] FO[facility]UTRITION SERVICES) athologist Signature Troponin I ES <0.015 0.000 - 09/24/2020 [place] 0.045 ug/L 4:23 PM [facility] Comment: The 99th percentile for upper reference range is 0.045 ug/L. ??Troponin values in the range of 0.045 - 0.120 ug/L may b e associated with risks of adverse clinical events. Specimen Anatomical Collection Method Collection Time Receive d Time (Source) Location / / Volume Laterality Blood specimen 09/24/2020 3:39 PM 021 3:58 (specimen) [facility]ITION SERVICES PM [facility]UTRITION SERVICES Phoenix Spivey MD LAB - BLOOD ORDERABLES Performing Organization Address City/State/ZIP Code Phon e Number [facility] [address] [phone] [facility] [address] [address], [place] [phone] (ABNORMAL) Basic metabolic panel (09/24/2020 3:39 PM DIRECT[facility] FO[facility] NUTRITION SERVICES) athologist Signature Sodium 138 133 - 144 09/24/2020 [place] mmol/L 4:13 PM [facility] Potassium 3.4 3.4 - 5.3 09/24/2020 [place] mmol/L 4:13 PM [facility] Chloride 103 94 - 109 09/24/2020 [place] mmol/L 4:13 PM [facility] Carbon Dioxide 29 20 - 32 09/24/2020 [place] mmol/L 4:19 PM [facility] Anion Gap 6 3 - 14 09/24/2020 [place] mmol/L 4:19 PM [facility] Glucose 86 70 - 99 09/24/2020 [place] mg/dL 4:19 PM [facility] Urea Nitrogen 10 7 - 30 09/24/2020 [place] mg/dL 4:19 PM [facility] Creatinine 0.96 0.52 - 09/24/2020 [place] 1.04 mg/dL 4:19 PM [facility] GFR Estimate 58 (L) >60 09/24/2020 [place] mL/min/{1. 4:19 PM [facility] 73_m2} [facility] Comment: Non GFR Calc Starting 08/17/2018, serum creatinine ba sed estimated GFR (eGFR) will be calculated using the Chronic Kidney Dise [facility] Epidemiology Collaboration (CKD-EPI) equation. GFR Estimate If 68 >60 mL/min/{1.73_m2} 09/24/2020 4: 19 PM [facility] Comment: GFR Calc Starting 08/17/2018, serum creatinine ba sed estimated GFR (eGFR) will be calculated using the Chronic Kidney Dise [facility] Epidemiology Collaboration (CKD-EPI) equation. Calcium 9.4 8.5 - 10.1 mg/dL 09/24/2020 4:19 PM [facility] Specimen Anatomical Collection Method Collection Time Receive d Time (Source) Location / / Volume Laterality Blood specimen 09/24/2020 3:39 PM 021 3:58 (specimen) [facility]ITION SERVICES PM [facility]UTRITION SERVICES Phoenix Spivey MD LAB - BLOOD ORDERABLES Performing Organization Address City/State/ZIP Code Phon e Number [facility] [address] [place] [address] [facility] [address] [place] [address], [place] [phone] CBC with platelets differential (09/24/2020 3:39 PM DIRECTOR OF FOOD AND NUTRITION SERVICES) [facility] Method Time Signature WBC 8.1 4.0 - 09/24/2020 [facility] 11.0 4:01 PM [facility] 10e9/[facility] RBC Count 4.80 3.8 - 5.2 09/24/2020 [facility] 10e12/[facility] 4:01 PM [facility] Hemoglobin 14.2 11.7 - 09/24/2020 [facility] 15.7 g/dL 4:01 PM [facility] Hematocrit 42.2 35.0 - 09/24/2020 [facility] 47.0 % 4:01 PM [facility] MCV 88 78 - 100 09/24/2020 [facility] fl 4:01 PM [facility] MCH 29.6 26.5 - 09/24/2020 [facility] 33.0 pg 4:01 PM [facility] MCHC 33.6 31.5 - 09/24/2020 [facility] 36.5 g/dL 4:01 PM [facility] RDW 12.6 10.0 - 09/24/2020 [facility] 15.0 % 4:01 PM [facility] Platelet Count 284 150 - 450 09/24/2020 [facility] 10e9/L 4:01 PM [facility] Diff Method Automated 09/24/2020 [facility] Method 4:01 PM [facility] % Neutrophils 55.9 % 09/24/2020 [facility] 4:01 PM [facility] % Lymphocytes 31.7 % 09/24/2020 [facility] 4:01 PM [facility] % Monocytes 6.5 % 09/24/2020 [facility] 4:01 PM [facility] % Eosinophils 4.8 % 09/24/2020 [facility] 4:01 PM [facility] % Basophils 0.7 % 09/24/2020 [facility] 4:01 PM [facility] % Immature 0.4 % 09/24/2020 [facility] Granulocytes 4:01 PM [facility] Nucleated RBCs 0 0 /100 09/24/2020 [facility] 4:01 PM [facility] Absolute 4.5 1.6 - 8.3 09/24/2020 [facility] Neutrophil 10e9/L 4:01 PM [facility] Absolute 2.6 0.8 - 5.3 09/24/2020 [facility] Lymphocytes 10e9/L 4:01 PM [facility] Absolute 0.5 0.0 - 1.3 09/24/2020 [facility] Monocytes 10e9/L 4:01 PM [facility] Absolute 0.4 0.0 - 0.7 09/24/2020 [facility] Eosinophils 10e9/L 4:01 PM [facility] Absolute 0.1 0.0 - 0.2 09/24/2020 [facility] Basophils 10e9/L 4:01 PM [facility] Abs Immature 0.0 0 - 0.4 09/24/2020 [facility] Granulocytes 10e9/L 4:01 PM [facility] Absolute 0.0 09/24/2020 [facility] Nucleated RBC 4:01 PM [facility] Specimen Anatomical Collection Method Collection Time Receive d Time (Source) Location / / Volume Laterality Blood specimen 09/24/2020 3:39 PM 021 3:58 (specimen) [employer] [employer] PM [facility] [employer] [facility] SERVICES Phoenix Spivey MD LAB - BLOOD ORDERABLES Performing Organization Address City/State/ZIP Code Phon e Number [facility] [address] [address] [phone] [facility] [address] [address], [phone] EKG 12 lead (09/24/2020 12:47 PM [employer] [employer]UTR[employer] SERVICES) [facility] gist Method Time Signature Interpretation ECG Click View RADIOLOGY Image link RESULTS to view waveform and result Specimen (Source) Anatomical Collection Method Collection Time Re ceived Time Location / / Volume Laterality 09/24/2020 12:47 PM [employer] [employer] SERVICES Kenyatta Awad MD ECG ORDERABLES Performing Organization Address City/State/ZIP Code Phon e Number RADIOLOGY RESULTS documented in this encounter Visit Diagnoses Diagnosis Palpitations - Primary Anxiety Anxiety state, unspecified Pulmonary nodules Other nonspecific abnormal finding of va ng field Adrenal nodule (H) 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, 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 documented in this encounter Administered Medications Inactive Administered Medications - up to 3 most recent administrations Medication Order MAR Action Action Date Dose Rate Site iopamidol (ISOVUE-370) solution 73 Given 09/24/2020 5:07 PM [facility] [employer] [facility] 73 mLs mL 73 mL, Intravenous, ONCE, On Thu09/24/20 at 1655, For 1 dose sodium chloride 0.9 % bag 100mL for CT scan Given 09/24/2020 5:07 PM [facility] [employer] [facility] [facility] 96 mLs flush use Intravenous, 96 mL, ONCE, On 09/24/20 at 1655, For 1 dose, This entry is for use by Radiology to intermittently used as a flush in patients receiving a CT scan. documented in this encounter Active and Recently Administered Medications Times are shown in [facility] [employer] [facility]. Scheduled Medication Order 09/22/2020 09/23/2020 09/24/2020 iopamidol (ISOVUE-370) solution 73 mL (COMPLETED) 1707 (Given - Provider: Dioni Cazares) 73 mL, Intravenous, ONCE, 09/24/20 at 1655, For 1 dose sodium chloride 0.9 % bag 100mL for CT scan flush use (COMPLETED ) 1707 (Given - Provider: Dioni Cazares) Intravenous, 96 mL, ONCE, 09/24/20 at 1655, For 1 dose, This entry is for use by Radiology to intermittently used as a flush in patients receiving a CT scan. documented in this encounter Care Teams Cellars Supervisor Relationship Specialty Start Date End Date Sita Koroma PCP - General Physician [employer]ns[employer] Analyst 09/24/20 [address] [place] [address] documented as of this encounter
--- OUTSIDE RECORDS SUMMARY | 2022-05-16 13:09 | XMS_ITS ---
:1945 Author Care Team Providers Name Role Phone SALINA BETH Primary Care Provider [phone] Allergies Code Code System Name Reaction Severity Status Onset 723 RxNorm Amoxicillin ? ? Active ? 2670 RxNorm Codeine ? ? Active ? Penicillins ? ? Active ? 847490 RxNorm Rofecoxib ? ? Active ? Notes: 05/12/2016: ALLERGY: SEASONAL A LLERGIES STATUS: Active Medications Name Status Start Date Stop Date ? ? betamethasone dipropionate 0.05 % lotion Completed ? 04/10/2020 cefdinir 300 mg capsule Completed ? 04/10/20 20 cephalexin 500 mg capsule Active ? Not av ailable TAKE 1 CAPSULE BY MOUTH TWICE DAILY FOR 7 DAYS ciprofloxacin 0.3 % eye drops Completed ? ciprofloxacin 500 mg tablet Completed ? 03/31 clonazepam 1 mg tablet Active ? Not avail able TK 1 T PO TID estradiol 0.01% (0.1 mg/gram) vaginal cream Active ? Not available fluconazole 150 mg tablet Active ? Not av ailable TAKE 1 TABLET BY MOUTH 1 TIME FOR 1 DOSE. REPEAT DOSE IN 3 DAYS NEEDED furosemide 20 mg tablet Active ? Not avai lable TAKE 1 TABLET BY MOUTH EVERY MORNING hydroxyzine HCl 25 mg tablet Completed ? 07/2020 hydroxyzine HCl 50 mg tablet Active ? Not available TAKE 1 TABLET BY MOUTH EVERY NIGHT AT BEDTIME NEEDED FOR SLE EP OR ANXIETY hydroxyzine pamoate 25 mg capsule Active ? Not available methylprednisolone 4 mg tablets in a dose pack Completed ? 04/10/2020 olopatadine 0.2 % eye drops Completed ? 03/31 oxycodone 5 mg tablet Completed ? 04/10/2020 oxycodone-acetaminophen 5 mg-325 mg tablet Active ? Not available pantoprazole 20 mg tablet,delayed release Active ? Not available TAKE 1 TABLET BY MOUTH 2 TO 3 TIMES EVERY DAY 30 TO 60 MINUTES BEFORE A MEAL sulfamethoxazole 800 mg-trimethoprim 160 mg tablet Completed ? 04/10/2020 tizanidine 4 mg tablet Active ? Not avail able TAKE 1 TABLET BY MOUTH EVERY 8 HOURS NEEDED FOR MUSCLE SPASM tramadol 50 mg tablet Active ? Not availa ble valacyclovir 1 gram tablet Active ? Not a vailable TAKE 1 TABLET BY MOUTH EVERY DAY Problems Name Status Onset Date Source ? 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 Myofascial Pain Active 04/10/2020 ? Tension-type Headache Active 08/13/2020 ? Neck Pain Active 08/13/2020 ? Procedures Date Name Performed by ? 08/31/2014 Back Surgery Information not avai lable 08/31/1963 Extraction of [place] Tooth Information n ot available ? Foot/toes Surgery Procedure Information not available Results Lab Results None recorded. Past Encounters None recorded. Social History Tobacco Smoking Status Never Smoker Vaccine List Vaccine Type influenza, injectable, quadrivalent 05/01/2019 07/31/2020 influenza, split (incl. purified surface antigen) 07/10/2015 Plan of Care Reminders Provider Appointments None recorded. ? ? Lab None recorded. ? ? Referral None recorded. ? ? Procedures None recorded. ? ? Surgeries None recorded. ? ? Imaging None recorded. ? ? Vitals 10/30/2020 11:30AM FOLLOW UP 30 Height Blood Pressure 5 ft 3 in 142/86 mm[Hg] 08/13/2020 11:30AM FOLLOW UP 30 Height Weight BMI Blood Pressure 5 ft 3 in 180 lbs 31.9 kg/m2 127/81 mm[Hg] 05/22/2020 10:30AM FOLLOW UP 30 Height Weight BMI Blood Pressure 5 ft 3 in 180 lbs 31.9 kg/m2 130/79 mm[Hg] 04/10/2020 11:00AM SPLINT INSERT Height Blood Pressure 5 ft 3 in 140/79 mm[Hg] 11/14/2019 02:00PM RE-EVALUATION Height Weight BMI Blood Pressure 5 ft 3 in 180 lbs 31.9 kg/m2 146/72 mm[Hg] 10/16/2015 Height Weight BMI Blood Pressure 5 ft 3 in 177 lbs 31.00 kg/m2 137/72 mm[Hg] 04/17/2014 Height Weight BMI Blood Pressure 5 ft 3 in 198 lbs 35.00 kg/m2 125/65 mm[Hg] 04/03/2014 Height Blood Pressure 5 ft 3 in 120/70 mm[Hg] 03/20/2014 Height Weight BMI Blood Pressure 5 ft 3 in 198 lbs 35.00 kg/m2 127/68 mm[Hg]
--- OUTSIDE RECORDS SUMMARY | 2022-05-16 13:09 | XMS_ITS | Encounter Summary ---
:1945 Author Organization [facility] Address [facility] [place] [address] Care Team Providers Name Role Phone [facility] Unavailable [phone] Sita Koroma Primary Care Provider Encounter Details Date Type Department Care Team Description 07/10/2021 Travel Social History Tobacco Use Types Packs/Day Years Used Date Smoking Tobacco: Never Smokeless Tobacco: Never Alcohol Use Standard Drinks/Week Comments Not Currently 0 (1 standard drink = 0.6 oz pure alcoho l) Sex Assigned at Date Recorded Female 06/25/2021 3:37 PM CDT COVID-19 Exposure Response Date Recorded In the last month, have you been in contact with No / Unsure 07/10/2021 1:34 PM 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 documented as of this encounter Plan of Treatment Not on filedocumented as of this encounter Visit Diagnoses Not on filedocumented in this encounter Care Teams Professor Of Public Administration Relationship Specialty Start Date End Date [facility] PCP - [facility] [place] [address] [place] [phone] Sita Koroma PCP - General Family Medicine 06/24/21 [address] [place] [address] documented as of this encounter
--- OUTSIDE RECORDS SUMMARY | 2022-05-16 13:09 | XMS_ITS | Encounter Summary ---
:1945 Author Organization [facility] Address [address] [place] [address] Care Team Providers Name Role Phone Sita Koroma Lisandra Primary Care Provider Unavailable Reason for Visit Reason Comments Hearing Problem Encounter Details Date Type Department Care Team Description 12/30/2021 [facility] Jj Medranojamison Emergency MD [facility] sensorineural hearing Dept [facility] loss [address] [place] [address] [place] [address] [place] [address] (Wo rk) Social History Tobacco Use Types Packs/Day Years Used Date Never Assessed Sex Assigned at Date Recorded Not on file COVID-19 Exposure Response Date Recorded In the last 10 days, have you been in contact with No / Unsu re 12/30/2021 1:51 PM CDT someone who was confirmed or suspected to have Coronavirus/COVID-19? documented as of this encounter Last Filed Vital Signs Vital Sign Reading Time Taken Comments Blood Pressure 127/78 12/30/2021 6:53 PM CDT Pulse 88 12/30/2021 2:07 PM CDT Temperature 37 ??C (98.6 ??F) 12/30/2021 2:07 PM CDT Respiratory Rate 20 12/30/2021 2:07 PM CDT Oxygen Saturation 97% 12/30/2021 6:53 PM CDT Inhaled Oxygen Concentration - - Weight - - Height 160 cm (5' 3) 12/30/2021 2:07 PM CDT Body Mass Index - - documented in this encounter Discharge Instructions AttachmentsThe following attachments cannot be sent through Care Everywhere. Hearing Loss, Signs of (Guinean)documented in this encounter ED Notes Lorna Rojas RN - 12/30/2021 3:50 PM CDT Bed: ED13 Expected date: Expected time: Means of arrival: Comments: Triage- Alexia Pruitt Jeffrey Aponte RN - 12/30/2021 2:15 PM CDT Images from the original note were not included. Pt notes gradual L sided hearing loss. Pt was seen in clinic today and was referred to the ED for anMRI. Triage Assessment Row Name 12/30/21 1414 Triage Assessment (Adult) Airway WDL WDL Respiratory WDL Respiratory WDL WDL Skin Circulation/Temperature WDL Skin Circulation/Temperature WDL WDL Cardiac WDL Cardiac WDL WDL Peripheral/Neurovascular WDL Peripheral Neurovascular WDL all;WDL Cognitive/Neuro/Behavioral WDL Cognitive/Neuro/Behavioral WDL all;X L sided hearing loss [place] Coma Scale Best Eye Response 4-->(E4) spontaneous Best Motor Response 6-->(M6) obeys commands Best Verbal Response 5-->(V5) oriented [place] Coma Scale Score 15 Jeffrey Aponte RN - 12/30/2021 2:15 PM CDT MD Cervantes consulted about pt condition and does not recommend a code stroke. Jj Medrano MD - 12/30/2021 1:50 PM CDT History Chief Complaint: Hearing Problem HPI Alexia Rosales is a 76 year old female who presents with left side hearing loss. The patient says it began yesterday but was more pronounced today. She went to urgent care who sent her here. She was given a steroid by urgent care. She says they were concerned about stroke due to balance issues. She denies vision problems or headaches. She denies numbness, weakness, tingling. She has had no headaches. She has had no fevers. Review of Systems HENT: Positive for hearing loss (left). Eyes: Negative for visual disturbance. Neurological: Negative for headaches. All other systems reviewed and are negative. 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 She is accompanied by her son. Physical Exam Patient Vitals for the past 24 hrs: BP Temp Temp src Pulse Resp SpO2 Height 12/30/21 1407 127/64 98.6 ??F (37 ??C) Temporal 88 20 95 % 1.6 m (5' 3) Physical Exam General: Alert, interactive in mild distress Head: Scalp is atraumatic Eyes: The pupils are equal, round, and reactive to light EOM's intact No scleral icterus ENT: Nose: The external nose is normal Ears: External ears are normal. Bilateral tympanic membranes normal Decrease hearing in the left ear, no tenderness or redness over the mastoids Mouth/Throat: The oropharynx is normal Mucus membranes are moist Neck: Normal range of motion. There is no rigidity. Trachea is in the midline CV: Regular rate and rhythm No murmur Resp: Breath sounds are clear bilaterally Non-labored, no retractions or accessory muscle use GI: Abdomen is soft, no distension, no tenderness. MS: Normal strength in all 4 extremities Skin: Warm and dry, No rash or lesions noted. Neuro: Strength 5/5 x4. Sensation intact In all 4 extremities. GCS: 15 Psych: Awake. Alert. Normal affect. Appropriate interactions. Emergency Department Course ECG ECG obtained at 1646, ECG read at 1650 Sinus rhythm with 1st degree AV block Nonspecific ST abnormality, New since 1993 Abnormal ECG Changes noted above as compared to prior, dated 1993. Rate 81 bpm. NE interval 210 ms. QRS duration 76 ms. QT/QTc 386/448 ms. P-R-T axes 66 -10 17. Imaging: MR Brain w/o & w Contrast Final Result IMPRESSION: 1. Normal MRI of the internal auditory canals and labyrinthine structures. No findings to explain patient's symptoms. 2. Minimal chronic small vessel ischemic disease and generalized brain parenchymal volume loss. Report per radiology Laboratory: Labs Ordered and Resulted from Time of ED Arrival to Time of ED Departure BASIC METABOLIC PANEL - Abnormal Result Value Sodium 136 Potassium 3.5 Chloride 110 (*) Carbon Dioxide (CO2) 22 Anion Gap 4 Urea Nitrogen 15 Creatinine 1.09 (*) Calcium 8.9 Glucose 136 (*) GFR Estimate 53 (*) DIFFERENTIAL - Abnormal % Neutrophils 91 % Lymphocytes 8 % Monocytes 0 % Eosinophils 1 % Basophils 0 Absolute Neutrophils 8.2 Absolute Lymphocytes 0.7 (*) Absolute Monocytes 0.0 Absolute Eosinophils 0.1 Absolute Basophils 0.0 RBC Morphology Confirmed RBC Indices Platelet Assessment Value: Automated Count Confirmed. Platelet morphology is normal. CBC WITH PLATELETS AND DIFFERENTIAL - Normal WBC Count 9.0 RBC Count 4.87 Hemoglobin 14.7 Hematocrit 42.8 MCV 88 MCH 30.2 MCHC 34.3 RDW 13.2 Platelet Count 306 Emergency Department Course: National [employer] Stroke Scale Exam Interval: Baseline Score Level of consciousness: (0) Alert, keenly responsive LOC questions: (0) Answers both questions correctly LOC commands: (0) Performs both tasks correctly Best gaze: (0) Normal Visual: (0) No visual loss Facial palsy: (0) Normal symmetrical movements Motor arm (left): (0) No drift Motor arm (right): (0) No drift Motor leg (left): (0) No drift Motor leg (right): (0) No drift Limb ataxia: (0) Absent Sensory: (0) Normal- no sensory loss Best language: (0) Normal- no aphasia Dysarthria: (0) Normal Extinction and inattention: (0) No abnormality Total Score: 0 Reviewed: I reviewed nursing notes, vitals, past medical history and Care Everywhere Assessments: 1620 I obtained history and examined the patient as noted above. 1735 I rechecked the patient and explained findings. Disposition: The patient was discharged to home. Impression & Plan Medical Decision Making: Following presentation history and physical examination were performed, the above work-up was undertaken. I reviewed the urgent care physician's note who is already initiated steroids. An ENT consultation has already been placed. MRI demonstrates no signs of an acute cerebrovascular infarction, tumor,intracranial hemorrhage, or more concerning illness. Laboratory work-up is reassuring. On physical examination there is no signs of occlusion of the external auditory canal. The patient will follow-up with otolaryngology and will be initiated on a Medrol Dosepak per the urgent care physician. She willreturn here if new symptoms develop. Patient feels comfortable with this plan of subsequently discharged home. Diagnosis: ICD-10-CM 1. Unilateral sensorineural hearing loss H90.5 Scribe Disclosure: I, Fernando Dasilva, am serving as a scribe at 4:12 PM on 12/30/2021 to document services personally performed by Jj Medrano,* based on my observations and the provider's statements to me. Jj Medrano MD 12/30/211900 documented in this encounter Plan of Treatment Not on filedocumented as of this encounter Procedures Procedure Name Priority Date/Time Associated Comments Diagnosis MR BRAIN W/O & W STAT 12/30/2021 6:33 PM Resul ts for this CONTRAST CDT procedure are i n the results section. CBC WITH PLATELETS STAT 12/30/2021 5:16 PM Res ults for this AND DIFFERENTIAL CDT procedure a re in the results section. CBC WITH PLATELETS & STAT 12/30/2021 5:16 PM R esults for this DIFFERENTIAL CDT procedure are i n the results section. DIFFERENTIAL STAT 12/30/2021 5:16 PM Results f or this CDT procedure are i n the results section. BASIC METABOLIC PANEL STAT 12/30/2021 5:16 PM Results for this CDT procedure are i n the results section. EKG 12-LEAD, TRACING STAT 12/30/2021 4:46 PM R esults for this ONLY CDT procedure are i n the results section. documented in this encounter Results MR Brain w/o & w Contrast (12/30/2021 6:33 PM CDT) Anatomical Region Laterality Modality Head, SUBRAD MR NEURO, UMP MR NEURO, RAD MR Magnetic Resonance Specimen (Source) Anatomical Collection Method Collection Time Re ceived Time Location / / Volume Laterality 12/30/2021 5:41 PM CDT Impressions 12/30/2021 6:38 PM CDT IMPRESSION: 1. ??Normal MRI of the internal auditory canals and labyrinthine structures. No findings to explain patient's symptoms. 2. ??Minimal chronic small vessel ischem ic disease and generalized brain parenchymal volume loss. Narrative 12/30/2021 6:38 PM CDT EXAM: MR BRAIN W/O and W CONTRAST [facility]: [facility] DATE/TIME: 12/30/2021 5:41 PM INDICATION: Hearing loss, sensorineural COMPARISON: None. CONTRAST: 9mL Gadavist TECHNIQUE: Multiplanar multisequence hea d MRI without and with intravenous contrast including dedicated imaging of the internal auditory canals. FINDINGS: IAC: Dedicated imaging of the internal a uditory canals demonstrates normal cranial nerve VII and VIII complexes bilaterally. No cerebellopontine angle or internal auditory canal mass. No pathologic cran ial nerve or temporal bone contrast enha ncement. Inner ear structures demonstrate expecte d fluid signal intensity. No middle ear or mastoid effusion. INTRACRANIAL CONTENTS: No acute or subac sasha infarct. No mass, acute hemorrhage, or extra-axial fluid collections. Scattered nonspecific T2/FLAIR hyperintensities within the cerebral white matter most co nsistent with minimal chronic microvascu lar ischemic change. Minimal generalized cerebral at rophy. No hydrocephalus. Normal position of the cerebellar tonsils. No pathologic contrast enhancement. OTHER: Accounting for technique no addit ional abnormalities identified. Procedure Note Michael Valencia MD - 12/30/2021F ormatting of this note might be different from the original. EXAM: MR BRAIN W/O and W CONTRAST LOCATION: [facility] DATE/TIME: 12/30/2021 5:41 PM INDICATION: Hearing loss, sensorineural COMPARISON: None. CONTRAST: 9mL Gadavist TECHNIQUE: Multiplanar multisequence hea d MRI without and with intravenous contrast including dedicated imaging of the internal auditory canals. FINDINGS: IAC: Dedicated imaging of the internal a uditory canals demonstrates normal cranial nerve VII and VIII complexes bilaterally. No cerebellopontine angle or internal auditory canal mass. No pathologic cranial nerve or temporal bone contrast enhancement. Inner ear structures demonstrate expecte d fluid signal intensity. No middle ear or mastoid effusion. INTRACRANIAL CONTENTS: No acute or subac sasha infarct. No mass, acute hemorrhage, or extra-axial fluid collections. Scattered nonspecific T2/FLAIR hyperintensities within the cerebral white matter most consistent with minimal chronic microvascular ische maxine change. Minimal generalized cerebral at rophy. No hydrocephalus. Normal position of the cerebellar tonsils. No pathologic contrast enhancement. OTHER: Accounting for technique no addit ional abnormalities identified. IMPRESSION: 1. Normal MRI of the internal auditory c anals and labyrinthine structures. No findings to explain patient's symptoms. 2. Minimal chronic small vessel ischemic disease and generalized brain parenchymal volume loss. Jj Medrano MD IMG MRI ORDERABLES (ABNORMAL) Manual Differential (12/30/2021 5:16 PM CDT) [facility] Method Time Signature % Neutrophils 91 % 12/30/2021 6:16 PM CDT LABORATORY % Lymphocytes 8 % 12/30/2021 6:16 PM CDT LABORATORY % Monocytes 0 % 12/30/2021 6:16 PM CDT LABORATORY % Eosinophils 1 % 12/30/2021 6:16 PM CDT LABORATORY % Basophils 0 % 12/30/2021 6:16 PM CDT LABORATORY Absolute 8.2 1.6 - 8.3 12/30/2021 Neutrophils 10e3/uL 6:16 PM CDT LABORATORY Absolute 0.7 (L) 0.8 - 5.3 12/30/2021 Lymphocytes 10e3/uL 6:16 PM CDT LABORATORY Absolute 0.0 0.0 - 1.3 12/30/2021 Monocytes 10e3/uL 6:16 PM CDT LABORATORY Absolute 0.1 0.0 - 0.7 12/30/2021 Eosinophils 10e3/uL 6:16 PM CDT LABORATORY Absolute 0.0 0.0 - 0.2 12/30/2021 Basophils 10e3/uL 6:16 PM CDT LABORATORY RBC Morphology Confirmed RBC 12/30/2021 Indices 6:16 PM CDT LABORATORY Platelet Automated Automated 12/30/2021 Assessment Count Count 6:16 PM CDT LABORATORY Confirmed. Confirmed. Platelet Platelet morphology is morphology is normal. normal. Specimen Anatomical Collection Method / Collection Time Recei alysa Time (Source) Location / Volume Laterality Blood STRUCTURE OF RIGHT Venipuncture / 12/30/2021 5:16 05/0 10/2021 5:33 UPPER LIMB / Unknown PM CDT PM CDT Unknown Jj Medrano MD LAB - BLOOD ORDERABLES Performing Organization Address City/State/ZIP Code Phon e Number LABORATORY [facility] [place] [address] [facility] [address] 1[address] floor, [address] CBC with platelets and differential (12/30/2021 5:16 PM CDT) P athologist Signature WBC Count 9.0 4.0 - 11.0 12/30/2021 LABORATORY 10e3/uL 6:16 PM CDT RBC Count 4.87 3.80 - 12/30/2021 LABORATORY 5.20 6:16 PM CDT 10e6/uL Hemoglobin 14.7 11.7 - 12/30/2021 LABORATORY 15.7 g/dL 6:16 PM CDT Hematocrit 42.8 35.0 - 12/30/2021 LABORATORY 47.0 % 6:16 PM CDT MCV 88 78 - 100 12/30/2021 LABORATORY fL 6:16 PM CDT MCH 30.2 26.5 - 12/30/2021 LABORATORY 33.0 pg 6:16 PM CDT MCHC 34.3 31.5 - 12/30/2021 LABORATORY 36.5 g/dL 6:16 PM CDT RDW 13.2 10.0 - 12/30/2021 LABORATORY 15.0 % 6:16 PM CDT Platelet Count 306 150 - 450 12/30/2021 LABORATORY 10e3/uL 6:16 PM CDT Specimen Anatomical Collection Method / Collection Time Recei alysa Time (Source) Location / Volume Laterality Blood STRUCTURE OF RIGHT Venipuncture / 12/30/2021 5:16 05/0 10/2021 5:33 UPPER LIMB / Unknown PM CDT PM CDT Unknown Jj Medrano MD LAB - BLOOD ORDERABLES Performing Organization Address City/State/ZIP Code Phon e Number LABORATORY [facility] [place] [address] [phone] [facility] [address] [place] 1[address] floor, [address] (ABNORMAL) Basic metabolic panel (12/30/2021 5:16 PM CDT) [facility] Method Time Signature Sodium 136 133 - 144 12/30/2021 LABORATORY mmol/L 5:55 PM CDT Potassium 3.5 3.4 - 5.3 12/30/2021 LABORATORY mmol/L 5:55 PM CDT Chloride 110 (H) 94 - 109 12/30/2021 LABORATORY mmol/L 5:55 PM CDT Carbon Dioxide 22 20 - 32 12/30/2021 LABORATORY (CO2) mmol/L 5:55 PM CDT Anion Gap 4 3 - 14 12/30/2021 LABORATORY mmol/L 5:55 PM CDT Urea Nitrogen 15 7 - 30 12/30/2021 LABORATORY mg/dL 5:55 PM CDT Creatinine 1.09 (H) 0.52 - 12/30/2021 LABORATORY 1.04 mg/dL 5:55 PM CDT Calcium 8.9 8.5 - 10.1 12/30/2021 LABORATORY mg/dL 5:55 PM CDT Glucose 136 (H) 70 - 99 12/30/2021 LABORATORY mg/dL 5:55 PM CDT GFR Estimate 53 (L) >60 12/30/2021 LABORATORY mL/min/1.7 5:55 PM CDT 3m2 Comment: Effective August 20, 2021 eGF Rcr in adults is calculated using the 2020 CKD-EPI creatinine equation which includ es age and gender (Bernie et al., NEJM, DOI: 10.1056/BNLIas5467947) Specimen Anatomical Collection Method / Collection Time Recei alysa Time (Source) Location / Volume Laterality Blood STRUCTURE OF RIGHT Venipuncture / 12/30/2021 5:16 05/0 10/2021 5:33 UPPER LIMB / Unknown PM CDT PM CDT Unknown Jj Medrano MD LAB - BLOOD ORDERABLES Performing Organization Address City/State/ZIP Code Phon e Number LABORATORY [facility] [place], [place] [phone] [facility] [address] [place] 1st floor, Room [address] EKG 12-lead, tracing only (12/30/2021 4:46 PM CDT) Component Value Ref Range Test Analysis Performed Pathologis t Method Time At Signature Systolic Blood mmHg RADIOLOGY Pressure RESULTS Diastolic Blood mmHg RADIOLOGY Pressure RESULTS Ventricular Rate 81 BPM RADIOLOGY RESULTS Atrial Rate 81 BPM RADIOLOGY RESULTS NE Interval 210 ms RADIOLOGY RESULTS QRS Duration 76 ms RADIOLOGY RESULTS QT 386 ms RADIOLOGY RESULTS QTc 448 ms RADIOLOGY RESULTS P [place] 66 degrees RADIOLOGY RESULTS R AXIS -10 degrees RADIOLOGY RESULTS T [place] 17 degrees RADIOLOGY RESULTS Interpretation Sinus rhythm with 1st degree A-V block RADIOLOGY ECG Nonspecific ST abnormality RES ULTS Abnormal ECG When compared with ECG of 08-JAN-1994 11:42, NE interval has increased Questionable change in QRS axis ST now depressed in Anterior leads Confirmed by GENERATED REPOR T, COMPUTER ([id number]), editor trade journal Kierra Stanford ([id number]) on 12/31/2021 3:45:53 AM Specimen Anatomical Collection Method Collection Time Receive d Time (Source) Location / / Volume Laterality 12/30/2021 4:46 PM 3:45 CDT AM CDT Jj Medrano MD ECG ORDERABLES Performing Organization Address City/State/ZIP Code Phon e Number RADIOLOGY RESULTS documented in this encounter Visit Diagnoses Diagnosis Unilateral sensorineural hearing loss Sensorineural hearing loss, unilateral documented in this encounter Administered Medications Inactive Administered Medications - up to 3 most recent administrations Medication Order MAR Action Action Date Dose Rate Site gadobutrol (GADAVIST) injection 9 Given 12/30/2021 5:42 PM CDT 9 mLs mL/kg 9 mL/kg, Intravenous, ONCE, On Thu12/30/21 at 1745, For 1 dose, Supplied by, and administered by MRI. documented in this encounter Active and Recently Administered Medications Times are shown in CDT. Scheduled Medication Order 12/28/2021 12/29/2021 12/30/2021 gadobutrol (GADAVIST) injection 9 mL/kg (COMPLETED) 1742 (Given - Provider: Olimpia Singer) 9 mL/kg, Intravenous, ONCE, On Thu 2 at 1745, For 1 dose, Supplied by, and administered by MRI. documented in this encounter Care Teams Data Modeling Specialist Relationship Specialty Start Date End Date Sita Koroma PCP - General Physician Annealing Torch Operator 09/24/20 [address] [place] [address] documented as of this encounter
--- OUTSIDE RECORDS SUMMARY | 2022-05-16 13:09 | XMS_ITS | Encounter Summary ---
:1945 Author Organization [facility] Address [address] [place] [address] Care Team Providers Name Role Phone Sita Koroma Primary Care Provider Unavailable Encounter Details Date Type Department Care Team Description 12/30/2021 Travel Social History Tobacco Use Types Packs/Day Years Used Date Never Assessed Sex Assigned at Date Recorded Not on file COVID-19 Exposure Response Date Recorded In the last 10 days, have you been in contact with No / Unsu re 12/30/2021 1:51 PM CDT someone who was confirmed or suspected to have Coronavirus/COVID-19? documented as of this encounter Plan of Treatment Not on filedocumented as of this encounter Visit Diagnoses Not on filedocumented in this encounter Care Teams Rn Production Relationship Specialty Start Date End Date Sita Koroma PCP - General Physician Auto Hiker 09/24/[address] [place] [address] documented as of this encounter
--- OUTSIDE RECORDS SUMMARY | 2022-05-16 13:09 | XMS_ITS | Encounter Summary ---
:[address] [facility] Address [facility] [place] [address] Care Team Providers Name Role Phone [facility] Unavailable [phone] Sita Koroma Primary Care Provider Encounter Details Date Type Department Care Team Description 07/29/2021 Travel Social History Tobacco Use Types Packs/Day Years Used Date Smoking Tobacco: Never Smokeless Tobacco: Never Alcohol Use Standard Drinks/Week Comments Not Currently 0 (1 standard drink = 0.6 oz pure alcoho l) Sex Assigned at Date Recorded Female 06/25/2021 3:37 PM CDT COVID-19 Exposure Response Date Recorded In the last month, have you been in contact Unable to assess 07/29/2021 7:22 AM 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 documented as of this encounter Plan of Treatment Not on filedocumented as of this encounter Visit Diagnoses Not on filedocumented in this encounter Care Teams Ship Captain Relationship Specialty Start Date End Date [facility] PCP - Primary Care Clinic [facility] [address] [place] [phone] Sita Koroma PCP - General Family Medicine 06/24/21 [address] [place] [address] documented as of this encounter
--- OUTSIDE RECORDS SUMMARY | 2022-05-16 13:09 | XMS_ITS | Encounter Summary ---
:1945 Author Organization [facility] Address [address] [place] [address] Care Team Providers Name Role Phone [facility], [facility] Unavailable [phone] Sita Koroma Primary Care Provider Reason for Visit (Routine) - Closed Specialty Diagnoses / Procedures Referred By Contact Refer red To Contact Diagnoses Cognitive change Eli Srivastava MD Procedures MRI BRAIN W/O&W CON [address] [place] [address] Referral ID Status Reason Start Date Expiration Date Visits Requ ested Visits Authorized [id number] Closed 1 1 Encounter Details Date Type Department Care Team Description 07/10/2021 Ancillary Procedure [facility] Cognitive change Neurology - [facility] [address] [place] [phone] Social History Tobacco Use Types Packs/Day Years Used Date Smoking Tobacco: Never Smokeless Tobacco: Never Alcohol Use Standard Drinks/Week Comments Not Currently 0 (1 standard drink = 0.6 oz pure alcoho l) Sex Assigned at Date Recorded Female 06/25/2021 3:37 PM CDT COVID-19 Exposure Response Date Recorded In the last month, have you been in contact with No / Unsure 07/10/2021 1:34 PM OPERATER someone who was confirmed or suspected to have Coronavirus / COVID-19? documented as of this encounter Miscellaneous Notes Result Encounter Note - Eli Srivastava MD - 07/10/2021 2:00 PM CST I would like to let you know that your MRI brain results came back ok, nothing concerning. There is age related small vessel change. We will discuss further management in the next visit. Please let me know if you have any question. ATER documented in this encounter Plan of Treatment Not on filedocumented as of this encounter Procedures Procedure Name Priority Date/Time Associated Diagnosis Comme nts MRI BRAIN W/O&W CON Routine 07/10/2021 2:17 PM Cognitive joe e Results for this OPERATER procedure are i n the results section. documented in this encounter Results MRI BRAIN W/O&W CON (07/10/2021 2:17 PM OPERATER) Anatomical Region Laterality Modality Head Magnetic Resonance Specimen (Source) Anatomical Collection Method Collection Time Re ceived Time Location / / Volume Laterality 07/10/2021 3:37 PM OPERATER Impressions 07/10/2021 3:48 PM OPERATER 1. No acute intracranial abnormality timo dent. 2. Mild chronic microvascular ischemic c hange. 3. No hydrocephalus. 4. No intracranial mass or mass effect. No abnormal intracranial enhancement. SIGNED BY: Mo Nieves M.D. Narrative 07/10/2021 3:48 PM OPERATER EXAM: ??MRI BRAIN W/O&W CON 07/10/2021 CLINICAL [...] Nieves M.D. Eli Srivastava MD MRI ORDERABLE documented in this encounter Visit Diagnoses Diagnosis Cognitive change Other signs and symptoms involving cogni tion documented in this encounter Administered Medications Inactive Administered Medications - up to 3 most recent administrations Medication Order MAR Action Action Date Dose Rate Site gadobutroL (GADAVIST) 10 mmol/10 mL Given 07/10/2021 2:17 PM OPERATER 10 mL (1 mmol/mL) solution 1-10 mL 1-10 mL, Intravenous, INTRA-PROCEDURE ONE TIME DOSE NEEDED, 1 dose, Starting on Thu07/10/21 at 1417, Until Thu07/10/21 at 1417, per procedure documented in this encounter Care Teams Tile Setter Supervisor Relationship Specialty Start Date End Date [facility] PCP - Primary Care Clinic [place] [address] [place] [phone] Sita Koroma PCP - General Family Medicine 06/24/21 [address] [place] [address] documented as of this encounter
--- OUTSIDE RECORDS SUMMARY | 2022-05-16 13:09 | XMS_ITS | Encounter Summary ---
:1945 Author Organization [facility] Address [address] [place] [address] Care Team Providers Name Role Phone [facility] Unavailable Sita Koroma Primary Care Provider Encounter Details Date Type Department Care Team Description 08/05/2021 Travel Social History Tobacco Use Types Packs/Day Years Used Date Smoking Tobacco: Never Smokeless Tobacco: Never Alcohol Use Standard Drinks/Week Comments Not Currently 0 (1 standard drink = 0.6 oz pure alcoho l) Sex Assigned at Date Recorded Female 06/25/2021 3:37 PM CDT COVID-19 Exposure Response Date Recorded In the last month, have you been in contact with No / Unsure 08/05/2021 11:03 AM DRAFTER CIVIL someone who was confirmed or suspected to have Coronavirus / COVID-19? documented as of this encounter Plan of Treatment Not on filedocumented as of this encounter Visit Diagnoses Not on filedocumented in this encounter Care Teams Vault Custodian Relationship Specialty Start Date End Date [facility] PCP - Primary Care Clinic [place] [address] [place] [phone] Sita Koroma PCP - General Family Medicine 06/24/21 [address] [place] [address] documented as of this encounter
--- OUTSIDE RECORDS SUMMARY | 2022-05-16 13:09 | XMS_ITS | Encounter Summary ---
:1945 Author Organization [facility] Address [address] [place] [address] Care Team Providers Name Role Phone [facility] Unavailable [phone] Sita Koroma Primary Care Provider Encounter Details Date Type Department Care Team Description 07/02/2021 Travel Social History Tobacco Use Types Packs/Day [...] on filedocumented in this encounter Care Teams Leather Coverer Relationship Specialty Start Date End Date [facility] PCP - Primary Care Clinic [place] [address] [place] [address] Sita Koroma PCP - General Family Medicine 06/24/21 [address] [place] [address] documented as of this encounter
--- OUTSIDE RECORDS SUMMARY | 2022-05-16 13:09 | XMS_ITS | Encounter Summary ---
:1945 Author Organization [facility] Address [address] [place] [address] Care Team Providers Name Role Phone Sita Koorma Primary Care Provider Unavailable Encounter Details Date Type Department Care Team Description 09/24/2020 Travel Social History Tobacco Use Types Packs/Day Years Used Date Never Assessed Sex Assigned at Date Recorded Not on file COVID-19 Exposure Response Date Recorded In the last month, have you been in contact with No / Unsure 09/24/2020 12:35 PM PERPETUAL INVENTORY CLERK someone who was confirmed or suspected to have Coronavirus / COVID-19? documented as of this encounter Plan of Treatment Not on filedocumented as of this encounter Visit Diagnoses Not on filedocumented in this encounter Care Teams Graduate School Dean Relationship Specialty Start Date End Date Sita Koroma PCP - General Physician Cooperer 09/24/[address] [place] [address] documented as of this encounter
--- OUTSIDE RECORDS SUMMARY | 2022-05-16 13:09 | XMS_ITS | Encounter Summary ---
:1945 Author Organization [facility] Address [address] [place] [address] Care Team Providers Name Role Phone [facility], [facility] Unavailable [phone] Sita Koroma Primary Care Provider Reason for Referral Other (Routine) - Authorized Specialty Diagnoses / Procedures Referred By Contact Refer red To Contact Diagnoses Memory deficit Eli Srivastava MD Procedures [facility] OT APPOINTMENT [address] [place] [address] [place] [address] Referral ID Status Reason Start Date Expiration Date Visits V isits Requested Authorized [id number] Authorized 08/05/2021 8 8 T POURER Reason for Visit Reason Comments Follow up Encounter Details Date Type Department Care Team Description 07/29/2021 Virtual Visit [facility] Srivastava MD Memory deficit Neurology - [address] (Primary Dx) [address] [place] [address] [place] [address] [phone] Social History Tobacco Use Types Packs/Day Years Used Date Smoking Tobacco: Never Smokeless Tobacco: Never Alcohol Use Standard Drinks/Week Comments Not Currently 0 (1 standard drink = 0.6 oz pure alcoho l) Sex Assigned at Date Recorded Female 06/25/2021 3:37 PM CDT COVID-19 Exposure Response Date Recorded In the last month, have you been in contact Unable to assess 07/29/2021 7:22 AM PAINT POURER with someone who was confirmed or suspected to have Coronavirus / COVID-19? documented as of this encounter Progress Notes Eli Srivastava MD - 07/29/2021 11:00 AM CST CC:cognitive change Last 07/02/21 INTERIM Still has memory issue - forget appointment Forget what she placed items Forget what she discussed with her senior trial attorney ROS Numbness feet hands + Mother/brother TIA ROWELL+ occipital ridge area Weakness Patient denies any LOC, vision change (double vision/vision loss/blurry vision), dizziness(room spinning/light headedness), hearing deficit, nausea/vomiting, dysphagia, dysarthria, weakness, tingling, muscle pain, incontinence, saddle anesthesia, prior or family history of migraine/seizure//brain surgery, weight change, recent illness, fever, diarrhea, chest pain or shortness breath, bleeding/bruising. ?? HPI-07/02/21 ?? 76 yo F w anxiety ( clonopine, [...] LOC+ depression, mood change+ ?? Prior head surgery, stroke, alcohol/drug history, disease, [...] exercising - walking until illness Fall: no ?? ROS Numbness feet hands + Mother/brother TIA Patient denies any LOC, ROWELL, vision change (double vision/vision loss/blurry vision), dizziness(room spinning/light headedness), hearing deficit, nausea/vomiting, dysphagia, dysarthria, weakness, tingling, muscle pain, incontinence, saddle anesthesia, prior or family history of migraine/seizure//brain surgery, weight change, recent illness, fever, diarrhea, chest pain or shortness breath, bleeding/bruising. ?? EXAM ?? General appearance: looked anxious and shaking Psych/Neuro: [...] intact to temperature/ pain,??light touch/ position/ vibration, Reflexes: 1+ throughout Babinski/Clonus/Benson: absent. Coordination:??Finger-nose coordination intact- slight dysmetria on the left eye cosed Romberg??+ Gait: normal port lions/unsatble tandem/heel/toe gait. ?? MOCA ?? 4/5 RECALL ?? ASSESSMENT/PLAN #Cognitive change- MOCA - 4/5 recall Risk- multiple concussion, depression, anxiety, chronic klonopin DDx Anxiety, depression, stress - On group PTSD therapy - MRI brain W WO 07/10/21- No acute intracranial abnormality- mild CMVID - Neuropsychology test- will hold off for now - TSH- wnl per patient - Lab- B12- 501, TSH- NOT DONE, Folate- WNL [...] was discussed - Sleep - insomnia intermittent ?? total time : 30 minutes I spent above time on a date of encounter with patient consisting of activities before, during and after the encounter as detailed in the above note which includes: reviewing charts, performing medically appropriate exam and evaluation, counseling/ education/care coordination and documentation in chart. ? This note was created via dictation program and may contain typographical errors. ?? This is a telemedicine visit that was performed with the originating site at patient???s home and the distant site at provider???s home in [place], [place]. Verbal consent was given to participate in video visit using [employer] real-time telemedicine video conference. This visit occurred during the Coronavirus (COVID-19) Public Health Emergency and was requested by patient due to contact concerns. I discussed with the patient the nature of our telemedicine visits, that: ??? I would evaluate the patient and recommend diagnostics and treatments based on my assessment andthe exam is limited due to the nature of telemedicine visit. ??? Our sessions are not being recorded and that personal health information is protected ??? Our team would provide followup care in person if/when the patient needs it. Patient identification was verified before the start of the encounter. ?? T POURER documented in this encounter Plan of Treatment Not on filedocumented as of this encounter Visit Diagnoses Diagnosis Memory deficit - Primary Memory loss documented in this encounter Care Teams Safety Pin Assembling Machine Operator Relationship Specialty Start Date End Date [facility] PCP - Primary Care Clinic [place] [address] [place] [phone] Sita Koroma PCP - General Family Medicine 06/24/21 [address] [place] [address] documented as of this encounter
== END 2022-05-16 13:06 | disposition home or self-care (01) ==
PROVIDERS: PCP Physician Assistant; Visit Provider Family Medicine
DX: M54.16 Radiculopathy, lumbar region (principal); M51.26 Other intervertebral disc displacement, lumbar region
CPT/HCPCS: 64483; J1100; Q9966

== ENCOUNTER 2022-06-17 08:27 | Outpatient (CLI) | payer MEDICARE, BC, SELFPAY ==
--- OUTSIDE RECORDS SUMMARY | 2022-06-17 08:38 | XMS_ITS | Encounter Summary ---
:1945 Author Organization [facility] Address [address] [place] [address] Care Team Providers Name Role Phone [facility] Unavailable Sita Koroma Primary Care Provider [...] with No / Unsure 08/05/2021 11:03 AM SMOG TECHNICIAN someone who was confirmed or suspected to have Coronavirus / COVID-19? documented as of this encounter Plan of Treatment Not on filedocumented as of this encounter Visit Diagnoses Not on filedocumented in this encounter Care Teams Fisher Gill Net Relationship Specialty Start Date End Date [facility] PCP - Primary Care Clinic [place] [address] [place] [phone] Sita Koroma PCP - General Family Medicine 06/24/21 [address] [place] [address] documented as of this encounter
--- OUTSIDE RECORDS SUMMARY | 2022-06-17 08:38 | XMS_ITS | Encounter Summary ---
:1945 Author Organization [facility] Address [address] [place] [address] Care Team Providers Name Role Phone [facility], [facility] Unavailable [phone] Sita Koroma Primary Care Provider Reason for Visit (Routine) - Closed Specialty Diagnoses / Procedures Referred By Contact Refer red To Contact Diagnoses Cognitive change Eli Srivastava MD Procedures MRI BRAIN W/O&W CON [address] [place] [address] Referral ID Status Reason Start Date Expiration Date Visits Requ ested Visits Authorized [id number] Closed 1 1 Encounter Details Date Type Department Care Team Description 07/10/2021 Ancillary Procedure [facility] of Cognitive change Neurology - [facility] [address] [place] [phone] Social History Tobacco Use Types Packs/Day Years Used Date Smoking Tobacco: Never Smokeless Tobacco: Never Alcohol Use Standard Drinks/Week Comments Not Currently 0 (1 standard drink = 0.6 oz pure alcoho l) Sex Assigned at Date Recorded Female 06/25/2021 3:37 PM CDT COVID-19 Exposure Response Date Recorded In the last month, have you been in contact with No / Unsure 07/10/2021 1:34 PM CHIP PERSON someone who was confirmed or suspected to [...] me know if you have any question. PERSON documented in this encounter Plan of Treatment Not on filedocumented as of this encounter Procedures Procedure Name Priority Date/Time Associated Diagnosis Comme nts MRI BRAIN W/O&W CON Routine 07/10/2021 2:17 PM Cognitive joe e Results for this CHIP PERSON procedure are i n the results section. documented in this encounter Results MRI BRAIN W/O&W CON (07/10/2021 2:17 PM CHIP PERSON) Anatomical Region Laterality Modality Head Magnetic Resonance Specimen (Source) Anatomical Collection Method Collection Time Re ceived Time Location / / Volume Laterality 07/10/2021 3:37 PM CHIP PERSON Impressions 07/10/2021 3:48 PM CHIP PERSON 1. No acute intracranial abnormality timo dent. 2. Mild chronic microvascular ischemic c hange. 3. No hydrocephalus. 4. No intracranial mass or mass effect. No abnormal intracranial enhancement. SIGNED BY: Mo Nieves M.D. Narrative 07/10/2021 3:48 PM CHIP PERSON EXAM: ??MRI BRAIN W/O&W CON 07/10/2021 CLINICAL [...] 10 mmol/10 mL Given 07/10/2021 2:17 PM CHIP PERSON 10 mL (1 mmol/mL) solution 1-10 mL 1-10 mL, Intravenous, INTRA-PROCEDURE ONE TIME DOSE NEEDED, 1 dose, Starting on Thu07/10/21 at 1417, Until Thu07/10/21 at 1417, per procedure documented in this encounter Care Teams Centrifugal Chiller Technician Relationship Specialty Start Date End Date [facility] PCP - Primary Care Clinic [place] [address] [place] [phone] Sita Koroma PCP - General Family Medicine 06/24/21 [address] [place] [address] documented as of this encounter
--- OUTSIDE RECORDS SUMMARY | 2022-06-17 08:38 | XMS_ITS | Clinical Summary ---
:1945 Author Organization [facility] Address [address] [place] [address] Care Team Providers Name Role Phone Sita Koroma Primary Care Provider Unavailable Allergies Active Allergy Reactions Severity Noted Date Comments Amoxicillin 09/24/2020 Penicillin G 09/24/2020 Rofecoxib 09/24/2020 Social History Tobacco Use Types Packs/Day Years Used Date Smoking Tobacco: Never Assessed Sex Assigned at Date Recorded Not on file Last Filed Vital Signs Vital Sign Reading Time Taken Comments Blood Pressure 127/78 12/30/2021 6:53 PM CDT Pulse 88 12/30/2021 2:07 PM CDT Temperature 37 ??C (98.6 ??F) 12/30/2021 2:07 PM CDT Respiratory Rate 20 12/30/2021 2:07 PM CDT Oxygen Saturation 97% 12/30/2021 6:53 PM CDT Inhaled Oxygen Concentration - - Weight 90.7 kg (200 lb) 09/24/2020 12:40 PM VIGOUREUX PRINTER Height 160 cm (5' 3) 12/30/2021 2:07 PM CDT Body Mass Index 35.43 09/24/2020 12:40 PM VIGOUREUX PRINTER Plan of Treatment Health Maintenance Due Date Last Done Comments ADVANCE CARE PLANNING 1945 ANNUAL REVIEW OF HM ORDERS 1945 DEXA 1945 HEPATITIS B IMMUNIZATION (1 1946 of 3 - 3-dose series) HEPATITIS C SCREENING 1964 LIPID 1991 FALL RISK ASSESSMENT 2011 MEDICARE ANNUAL WELLNESS 2011 VISIT COVID-19 Vaccine (4 - 07/30/2021 06/04/2021, 11/03/2020, Booster for Pfizer series) 10/13/2020 DTAP/TDAP/TD IMMUNIZATION 07/30/2021 07/30/2011, 11/21/2003 (2 - Td or Tdap) PHQ-2 (once per calendar 08/31/2021 year) INFLUENZA VACCINE (#1) 2022 06/04/2021, 08/17/2020, 08/17/2020, Additional history exists Pneumococcal Vaccine: 65+ Completed 10/04/2014, 07/30/2011 Years ZOSTER IMMUNIZATION Completed 02/27/2021, 09/11/2020 IPV IMMUNIZATION Aged Out No longer eligi ble based on patient 's age to complete this topic MENINGITIS IMMUNIZATION Aged Out No longe r eligible based on patient 's age to complete this topic Insurance Payer Benefit Plan / Subscriber ID Effective Phone Address T ype Group Dates MEDICARE MEDICARE [id number] 1994-Prese [phone] ATTN [place] Medicare nt 40 [address] [place] [address] [place] [id number] 2018-Prese [phone] [address] [address] Indemnity [address] [place] [address] Care Teams Evp And Chief Operating Officer Relationship Specialty Start Date End Date Sita Koroma PCP - General Physician Syrup Maker Cook 09/24/20 [address] [place] [address]
--- OUTSIDE RECORDS SUMMARY | 2022-06-17 08:38 | XMS_ITS | Encounter Summary ---
:1945 Author Organization [facility] Address [address] [place] [id number] Care Team Providers Name Role Phone Franci Sita Lisandra Primary Care Provider Unavailable Reason for Visit Reason Comments Chest Pain Encounter Details Date Type Department Care Team Description 09/24/2020 Emergency [facility] Phoenix Spivey MD Palpitations (Primary Dx); [facility] Emergency [facility]G[employer]YS[facility] Anxiety; Dept PA Pulmonary nodules; [address] James drenal nodule (H); [facility] [address] Renal cyst, [place] [address] [place] [address] (Wo rk) Social History Tobacco Use Types Packs/Day Years Used Date Smoking Tobacco: Never Assessed Sex Assigned at Date Recorded Not on file COVID-19 Exposure Response Date Recorded In the last month, have you been in contact with No / Unsure 09/24/2020 12:35 PM [employer] someone who was confirmed or suspected to have Coronavirus / COVID-19? documented as of this encounter Last Filed Vital Signs Vital Sign Reading Time Taken Comments Blood Pressure 135/66 09/24/2020 12:40 PM [employer] Pulse 73 09/24/2020 4:45 PM [employer] Temperature 36.3 ??C (97.4 ??F) 09/24/2020 12:40 PM [employer] Respiratory Rate 14 09/24/2020 5:45 PM [employer] Oxygen Saturation 95% 09/24/2020 12:40 PM [employer] Inhaled Oxygen Concentration - - Weight 90.7 kg (200 lb) 09/24/2020 12:40 PM [employer] Height 160 cm (5' 3) 09/24/2020 12:40 PM [employer] Body Mass Index 35.43 09/24/2020 12:40 PM [employer] documented in this encounter Discharge Instructions Discharge [...] if there is anything that worries you. [employer] AttachmentsThe following attachments cannot be sent through Care Everywhere. Anxiety Reaction (Indonesian)(s) Common Questions about Lung Nodules (Indonesian) documented in this encounter ED Notes Nathanael Tamayo RN - 09/24/2020 3:12 PM CST Medical student at bedside [employer] Chelsea Patterson RN - 09/24/2020 12:48 PM CST Pt states that she felt a flutter in her chest; States that she called her doctor today and they told her to come to the ED. [employer] Phoenix Spivey MD - 09/24/2020 12:35 PM [...] Chest Pain Time: 1247 Rate 77 bpm. RI interval 180. QRS duration 84. QT/QTc 392/443. [...] 3.58 Magnesium: 2.1 Emergency Department Course: Reviewed: 1530 I reviewed the patient's nursing notes, vitals, [...] statements to me. Phoenix Spivey MD 09/24/20 1752 [employer] documented in this encounter Plan of Treatment Not on filedocumented as of this encounter Procedures Procedure Name Priority Date/Time Associated Diagnosis Comme nts CT CHEST PULMONARY STAT 09/24/2020 5:22 PM Res ults for this EMBOLISM W CONTRAST [employer] procedur e are in the results section. CBC WITH PLATELETS & STAT 09/24/2020 3:39 PM Palpitations R esults for this DIFFERENTIAL [employer] procedure are i n the results section. TSH WITH FREE T4 STAT 09/24/2020 3:39 PM Palpitations Resul ts for this REFLEX [employer] procedure are i n the results section. TROPONIN I STAT 09/24/2020 3:39 PM Palpitations Results f or this [employer] procedure are i n the results section. MAGNESIUM Routine 09/24/2020 3:39 PM Palpitations Results f or this [employer] procedure are i n the results section. D DIMER QUANTITATIVE STAT 09/24/2020 3:39 PM Palpitations R esults for this [employer] procedure are i n the results section. BASIC METABOLIC PANEL STAT 09/24/2020 3:39 PM Palpitations Results for this [employer] procedure are i n the results section. EKG 12-LEAD, TRACING STAT 09/24/2020 12:47 Res ults for this ONLY PM [employer] procedure are i n the results section. documented in this encounter Results CT Chest Pulmonary Embolism w Contrast (09/24/2020 5:22 PM [employer]) Anatomical Region Laterality Modality Chest, SUBRAD CT BODY, UMP CT CHEST Comp uted Tomography Specimen (Source) Anatomical Location Collection Method / Collectio n Time Received Time / Laterality Volume Impressions 09/24/2020 5:40 PM [employer] IMPRESSION: 1. No evidence of pulmonary embolism. [...] LEVAR BARKSDALE MD Narrative 09/24/2020 5:[address] [address] CHEST PULMONARY EMBOLISM WITH CONTRAST ??09/24/2020 [...] IMG CT ORDERABLES Magnesium (09/24/2020 3:39 PM [employer]) athologist [facility] Magnesium 2.1 1.6 - 2.3 09/24/2020 [place] mg/dL 4:19 PM [employer] [facility] Specimen Anatomical Collection Method Collection Time Receive d Time (Source) Location / / Volume Laterality 09/24/2020 3:39 PM 3:58 [employer] PM [employer] Phoenix Spivey MD LAB - BLOOD ORDERABLES Performing Organization Address City/State/ZIP Code Phon e Number M [facility] [address] [address] [phone] [facility] [address] [address], [place] [phone] (ABNORMAL) D dimer quantitative (09/24/2020 3:39 PM [employer]) athologist Signature D Dimer 2.1 (H) 0.0 - 0.50 09/24/2020 [place] ug/ml FEU 4:12 PM [employer] [facility] Comment: This D-dimer assay is intended for [...] specimen 09/24/2020 3:39 PM 021 3:58 (specimen) [employer] PM [employer] Phoenix Spivey MD LAB - BLOOD ORDERABLES Performing Organization Address City/State/ZIP Code Phon e Number M [facility] [address] [place] [address] [phone] [facility] [address] [place] [address], [place] [phone] TSH with free T4 reflex (09/24/2020 3:39 PM [employer]) athologist Signature TSH 3.58 0.40 - 4.00 09/24/2020 [place] mU/L 4:27 PM [facility] Specimen Anatomical Collection Method Collection Time Receive d Time (Source) Location / / Volume Laterality Blood specimen 09/24/2020 3:39 PM 021 3:58 (specimen) [employer] PM [employer] Phoenix Spivey MD LAB - BLOOD ORDERABLES Performing Organization Address City/State/ZIP Code Phon e Number M [facility] [address] [place] [address] [facility] [address] [place] [address], [place] [phone] Troponin I (09/24/2020 3:39 PM [employer]) athologist Signature Troponin I ES <0.015 0.000 - 09/24/2020 [place] 0.045 ug/L 4:23 PM [facility] Comment: The 99th percentile for upper reference range is 0.045 ug/L. ??Troponin values in the range of 0.045 - 0.120 ug/L may b e associated with risks of adverse clinical events. Specimen Anatomical Collection Method Collection Time Receive d Time (Source) Location / / Volume Laterality Blood specimen 09/24/2020 3:39 PM 021 3:58 (specimen) [employer] PM [employer] Phoenix Spivey MD LAB - BLOOD ORDERABLES Performing Organization Address City/State/ZIP Code Phon e Number M [facility] [address] [address] [phone] [facility] [address] [place] [address], [place] [phone] (ABNORMAL) Basic metabolic panel (09/24/2020 3:39 PM [employer]) athologist Signature Sodium 138 133 - 144 09/24/2020 [place] mmol/L 4:13 PM [facility] Potassium 3.4 3.4 - 5.3 09/24/2020 [place] mmol/L 4:13 PM [facility] Chloride 103 94 - 109 09/24/2020 [place] mmol/L 4:13 PM [facility] Carbon Dioxide 29 20 - 32 09/24/2020 [place] mmol/L 4:19 PM [facility] Anion Gap 6 3 - 14 09/24/2020 [place] mmol/L 4:19 PM [facility] Glucose 86 70 - 99 09/24/2020 [place] mg/dL 4:19 PM [facility] Urea Nitrogen 10 7 - 30 09/24/2020 [place] mg/dL 4:19 PM [facility] Creatinine 0.96 0.52 - 09/24/2020 [place] 1.04 mg/dL 4:19 PM [facility] GFR Estimate 58 (L) >60 09/24/2020 [place] mL/min/{1. 4:19 PM [facility] 73_m2} [facility] Comment: Non GFR Calc Starting 08/17/2018, serum creatinine ba sed estimated GFR (eGFR) will be calculated using the Chronic Kidney Dise [facility] Epidemiology Collaboration (CKD-EPI) equation. GFR Estimate If 68 >60 mL/min/{1.73_m2} 09/24/2020 4: 19 PM [facility] Comment: GFR Calc Starting 08/17/2018, serum creatinine ba sed estimated GFR (eGFR) will be calculated using the Chronic Kidney Dise [facility] Epidemiology Collaboration (CKD-EPI) equation. Calcium 9.4 8.5 - 10.1 mg/dL 09/24/2020 4:19 PM [facility] Specimen Anatomical Collection Method Collection Time Receive d Time (Source) Location / / Volume Laterality Blood specimen 09/24/2020 3:39 PM 021 3:58 (specimen) [employer] PM [employer] Phoenix Spivey MD LAB - BLOOD ORDERABLES Performing Organization Address City/State/ZIP Code Phon e Number M [facility] [address] [place] [address] [facility] [address] [place] [address], [place] [phone] CBC with platelets differential (09/24/2020 3:39 PM [employer]) [facility] Method Time Signature WBC 8.1 4.0 - 09/24/2020 [facility] 11.0 4:01 PM [facility] 10e9/L [facility] RBC Count 4.80 3.8 - 5.2 09/24/2020 [facility] 10e12/L 4:01 PM [facility] Hemoglobin 14.2 11.7 - 09/24/2020 [facility] 15.7 g/dL 4:01 PM [facility] Hematocrit 42.2 35.0 - 09/24/2020 [facility] 47.0 % 4:01 PM [facility] MCV 88 78 - 100 09/24/2020 [facility] fl 4:01 PM [facility] MCH 29.6 26.5 - 09/24/2020 [facility] 33.0 pg 4:01 PM [facility] MCHC 33.6 31.5 - 09/24/2020 [facility] 36.5 g/dL 4:01 PM [facility] RDW 12.6 10.0 - 09/24/2020 [facility] 15.0 % 4:01 PM [facility] Platelet Count 284 150 - 450 09/24/2020 [facility] 10e9/L 4:01 PM [facility] Diff Method Automated 09/24/2020 [facility] Method 4:01 PM [facility] % Neutrophils 55.9 % 09/24/2020 [facility] 4:01 PM [facility] % Lymphocytes 31.7 % 09/24/2020 [facility] 4:01 PM [facility] % Monocytes 6.5 % 09/24/2020 [facility] 4:01 PM [facility] % Eosinophils 4.8 % 09/24/2020 [facility] 4:01 PM [facility] % Basophils 0.7 % 09/24/2020 [facility] 4:01 PM [facility] % Immature 0.4 % 09/24/2020 [facility] Granulocytes 4:01 PM [facility] Nucleated RBCs 0 0 /100 09/24/2020 [facility] 4:01 PM [facility] Absolute 4.5 1.6 - 8.3 09/24/2020 [facility] Neutrophil 10e9/L 4:01 PM [facility] Absolute 2.6 0.8 - 5.3 09/24/2020 [facility] Lymphocytes 10e9/L 4:01 PM [facility] Absolute 0.5 0.0 - 1.3 09/24/2020 [facility] Monocytes 10e9/L 4:01 PM [facility] Absolute 0.4 0.0 - 0.7 09/24/2020 [facility] Eosinophils 10e9/L 4:01 PM [facility] Absolute 0.1 0.0 - 0.2 09/24/2020 [facility] Basophils 10e9/L 4:01 PM [facility] Abs Immature 0.0 0 - 0.4 09/24/2020 [facility] Granulocytes 10e9/L 4:01 PM [facility] Absolute 0.0 09/24/2020 [facility] Nucleated RBC 4:01 PM [facility] Specimen Anatomical Collection Method Collection Time Receive d Time (Source) Location / / Volume Laterality Blood specimen 09/24/2020 3:39 PM 021 3:58 (specimen) [employer] PM [employer] Phoenix Spivey MD LAB - BLOOD ORDERABLES Performing Organization Address City/State/ZIP Code Phon e Number M [facility] [address] [address] [facility] [address] [address], U [phone] EKG 12 lead (09/24/2020 12:47 PM [employer]) [facility] gist Method Time Signature Interpretation ECG Click View RADIOLOGY Image link RESULTS to view waveform and result Specimen (Source) Anatomical Collection Method Collection Time Re ceived Time Location / / Volume Laterality 09/24/2020 12:47 PM [employer] Kenyatta Awad MD ECG ORDERABLES Performing Organization [...] ([id number]-[id number]) solution 73 Given 09/24/2020 5:07 PM [employer] 73 mLs mL 73 mL, Intravenous, ONCE, On Thu09/24/20 at 1655, For 1 dose sodium chloride 0.9 % bag 100mL for CT scan Given 09/24/2020 5:07 PM [employer] 96 mLs flush use Intravenous, 96 mL, ONCE, On 09/24/20 at 1655, For 1 dose, This entry is for use by Radiology to intermittently used as a flush in patients receiving a CT scan. documented in this encounter Active and Recently Administered Medications Times are shown in [employer]. Scheduled Medication Order 09/22/2020 09/23/2020 09/24/2020 iopamidol [...] scan. documented in this encounter Care Teams Communications Equipment Operator Relationship Specialty Start Date End Date Sita Koroma PCP - General Physician Design Sales Consultant 09/24/20 [address] [place] [address] documented as of this encounter
--- OUTSIDE RECORDS SUMMARY | 2022-06-17 08:38 | XMS_ITS | Encounter Summary ---
:1945 Author Organization [facility] Address [address] [place] [address] Care Team Providers Name Role Phone [facility], [facility] Unavailable [phone] Sita Koroma Primary Care Provider Reason for Referral Other (Routine) - Authorized Specialty Diagnoses / Procedures Referred By Contact Refer red To Contact Diagnoses Memory deficit Eli Srivastava MD Procedures [facility] OT APPOINTMENT [address] [place] [address] [place] [address] Referral ID Status Reason Start Date Expiration Date Visits V isits Requested Authorized [id number] Authorized 08/05/2021 8 8 [employer] Reason for Visit Reason Comments Follow up Encounter Details Date Type Department Care Team Description 07/29/2021 Virtual Visit [facility] Srivastava MD Memory deficit Neurology - [address] (Primary Dx) [address] [place] [address] [place] [address] [phone] Social History Tobacco Use Types Packs/Day Years Used Date Smoking Tobacco: Never Smokeless Tobacco: Never Alcohol Use Standard Drinks/Week Comments Not Currently 0 (1 standard drink = 0.6 oz pure alcoho l) Sex Assigned at Date Recorded Female 06/25/2021 3:37 PM CDT COVID-19 Exposure Response Date Recorded In the last month, have you been in contact Unable to assess 07/29/2021 7:22 AM 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 documented as of this encounter Progress Notes Eli Srivastava MD - 07/29/2021 11:00 AM CST CC:cognitive change Last 07/02/21 INTERIM Still has memory issue - forget appointment Forget what she placed items Forget what she discussed with her attorney general ROS Numbness feet hands + Mother/brother TIA [...] the left eye cosed [place]berg??+ Gait: normal [place]/unsatble tandem/heel/toe gait. ?? MOCA ?? 4/5 RECALL [...] the distant site at provider???s home in [place], [place]. Verbal consent was given to participate in video visit using [email or web address] real-time telemedicine video conference. This visit occurred [...] before the start of the encounter. ?? [employer] documented in this encounter Plan of Treatment Not on filedocumented as of this encounter Visit Diagnoses Diagnosis Memory deficit - Primary Memory loss documented in this encounter Care Teams Chamber Magistrate Relationship Specialty Start Date End Date [facility] PCP - Primary [facility] [place] [address] [place] [phone] Sita Koroma PCP - General Family Medicine 06/24/21 [address] [place] [address] documented as of this encounter
--- OUTSIDE RECORDS SUMMARY | 2022-06-17 08:38 | XMS_ITS | Clinical Summary ---
:1945 Author Organization [facility] [place] [address] Care Team Providers Name Role Phone Yolanda Rogers NP Unavailable Phoenix Pablo MD Unavailable [facility] Unavailable [phone] Sita Koroma Primary Care Provider Allergies [...] please measure patient. Patient requests toeless stockings. pantoprazole TAKE 1 TABLET BY 90 tablet. 3 02/20/20 Active (PROTONIX) 20 mg MOUTH DAILY 22 tabletIndications: BEFORE A MEAL Gastroesophageal reflux disease without esophagitis valACYclovir Take 1 Tablet (1 90 Tablet 3 02/20/20 Active (VALTREX) 1 gram g) by mouth once 22 tabletIndications: daily. Herpes simplex medication order Progesterone 90 Tablet 1 02/28/20 Active composerIndications: delayed release, 22 Hormone replacement compounded, 75 therapy (HRT), Night mg. Take one tab sweats, Vaginal daily. dryness medication order Compounded 1 84 g 1 02/28/20 Active composerIndications: mg/g BiEst (80% 22 Hormone replacement E3, 20% E2). Use therapy (HRT), Night 3-4 clicks daily sweats, Vaginal to three times dryness weekly as needed. nystatin Apply topically 30 g 3 04/09/20 Acti ve (MYCOSTATIN) to affected 22 creamIndications: area(s) 2 times Yeast infection of daily. As needed the skin to yeast rash areas under breasts/abdomen. traMADoL (ULTRAM) 50 Take 1 Tablet 60 Tablet 1 05/06/20 Active mg (50 mg) by mouth 22 tabletIndications: every 6 hours if Arthrosis of left needed for Pain. midfoot tiZANidine TAKE 1 TABLET(4 90 Tablet 1 05/29/20 Act julius (ZANAFLEX) 4 mg MG) BY MOUTH 22 tabletIndications: EVERY 8 HOURS Lumbar disc NEEDED FOR herniation MUSCLE SPASM oxyCODONE-acetaminop Take 1 Tablet by 48 Tablet 0 05/30/20 Active hen (Percocet) 5-325 mouth every 4 22 mg per hours if needed tabletIndications: for Pain. Max Chronic foot pain, acetaminophen unspecified dose: 4000mg in laterality 24 hrs. estradioL (ESTRACE) Use 1 gram 42.5 g 3 02/20/20 Discontinued 0.01% (0.1 mg/g) vaginally 22 022 (*M ed vaginal nightly for one comp lete/Regime creamIndications: week, then use n Vaginal dryness 0.5-1 gram one complete/Level to three times of ca re change) weekly as needed for vaginal dryness. tiZANidine Take 1 Tablet (4 90 Tablet 1 02/20/20 Di scontinued (ZANAFLEX) 4 mg mg) by mouth 22 022 tabletIndications: every 8 hours if Lumbar disc needed for herniation Muscle Spasm. oxyCODONE-acetaminop Take 1 Tablet by 24 Tablet 0 05/06/ Discontinued hen (Percocet) 5-325 mouth every 4 22 022 (Reorder mg per hours if needed (E-c ancel not tabletIndications: for Pain. Max sent)) Chronic foot pain, acetaminophen unspecified dose: 4000mg in laterality 24 hrs. oxyCODONE-acetaminop Take 1 Tablet by 24 Tablet 0 05/20/20 Discontinued hen (Percocet) 5-325 mouth every 4 [...] office visit 11/12/18 Controlled substance agreement: 08/04/14. 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 Calcific tendinitis of right shoulder 12/09/2011 Displacement of cervical intervertebral disc without m yelopathy 01/31/2010 Environmental allergies 05/10/2009 Osteoarthritis of Knees 03/05/2009 Resolved Problems Problem Noted Date Resolved Date Edema 10/16/2014 03/11/2016 Overview: Wears compression stockings and takes hy rdrochlorothiazide. Osteoporosis 10/13/2014 10/13/2014 Wrist tendonitis 01/24/2011 01/18/2014 Encounters Date Type Specialty Care Team Description 06/16/2022 Hospital Encounter Phoenix Pablo MD Battista, Brian, PT 06/16/2022 Travel 06/14/2022 Travel 06/11/2022 Ancillary Procedure 06/11/2022 Telephone Phoenix Pablo, request ing call back 06/11/2022 Orders Only Phoenix Pablo, <No sca ns attached> 06/11/2022 Travel 06/04/2022 Hospital Encounter Phoenix Pablo MD Battista, Brian, PT 06/04/2022 Travel 06/04/2022 Orders Only Emmanuel Sanchez, <No scans attached> 05/29/2022 Refill Sita Koroma, Refill Request PA (Tizanidine) 05/26/2022 Telephone Phoenix Pablo Questio ns (about [facility] Spine call ing her ) 05/23/2022 Telephone Phoenix Pablo Questio ns MD 05/21/2022 Hospital Encounter Phoenix Pablo MD Battista, Brian, PT 05/21/2022 Ancillary Procedure 05/21/2022 Travel 05/19/2022 Hospital Encounter Phoenix Pablo MD Battista, Brian, PT 05/19/2022 Office Visit Reid Patel, Shannon Derm Pr oblem (Check E, MATERIAL CONTROL SPECIALIST right breast) 05/19/2022 Travel 05/16/2022 Office Visit Phoenix Pablo, Procedu re (Right S1 TFESI) 05/16/2022 Orders Only Scanner <No scans attac hed> 05/15/2022 Travel 05/14/2022 Hospital Encounter Phoenix Pablo, Marsha Bowles, PT 05/14/2022 Travel 05/12/2022 Hospital Encounter Phoenix Pablo, Brandyn Carter, PT 05/12/2022 Travel 05/09/2022 Hospital Encounter Phoenix Pablo, Marsha Bowles, PT 05/09/2022 Travel 05/06/2022 Refill Phoenix Pablo, Refill Request 05/06/2022 Telephone Phoenix Pablo, Appoint ment Request (RIGHT SHOULDER PAIN/PER ) 05/02/2022 Hospital Encounter Phoenix Pablo, Marsha Bowles, PT 05/02/2022 Travel 04/29/2022 Hospital Encounter Phoenix [...] 04/03/2022 Medical Messaging Phoenix Pablo, MR I 03/31/2022 Office Visit Max Eid, Chiropra ctic Care (PARTS DC 02/04/22: JENNIE 25% ; Cheryl 5/2, 6/7/22: Lo w back/Sciatica p ain) 03/31/2022 Telephone [...] Lo w back/Sciatica p ain) 03/17/2022 Travel from Last 3 Months Immunizations Name Administration Dates Next Due AMB Influenza, IIV3 (Age >=3 years)(Flu 06/09/2012, 06/12/20 11 Clinic Only) AMB Influenza, IIV4 PF (=>6 mos 06/23/2018, 06/09/2013 Flulaval,Fluzone Fluarix)(Flu Clinic Only) COVID-19 vaccine ([employer] 06/04/2021, 11/03/2020, 30mcg/0.3mL) PF, MDV Influenza A [...] 10 days, have you been in contact No / Unsure 06/16/2022 11:34 AM CDT with someone who was confirmed or suspected to have Coronavirus/COVID-19? Obstetrics History Para Term AB IAB SAB Ectopic Multiple Living Live Births 4 2 2 2 2 2 Date Outcome GA Total Labor/2nd/3rd Weight Sex Delivery Anes PTL Mariza A 1 A5 Name Clin Labor SAB SAB Term Term Last Filed Vital Signs Vital Sign Reading Time Taken Comments Blood Pressure 138/72 05/19/2022 10:59 AM CDT Pulse 76 05/19/2022 10:59 AM CDT Temperature 36.7 ??C (98 ??F) [...] Encounters Date Type Specialty Care Team Description 06/23/2022 Appointment Brandyn Waller, PT [address] [place] [id number] (Wo rk) 06/30/2022 Appointment Brandyn Waller, PT [address] [place] [id number] (Wo rk) Health Maintenance Due Date Last Done Comments Medicare Wellness for age 65+ 2011 BMI (ht and wt on same day) for 03/07/2017 03/07/2016, 05/2016, age 18+ 12/10/2015 COVID-19 vaccine series (4 - 07/30/2021 06/04/2021, 021, Booster for Pfizer series) 10/13/2020 Tetanus booster 07/30/2021 07/30/2011, 11/21/2003 Influenza for age 65+ 05/01/2022 06/04/2021, 06/04/2021, [...] 07/2021 50+ Medical Devices Implanted Type Area Sound Effects Person Device Shelf Model / Identifier Expiration Serial / Date Lot Damian Lmbr 3.5cmx5.5mm Tsrh 3d Cvd Pre-Cut Titnm - [id number] N/A: [employer] [id number] / Implanted: Qty: 1 on 10/18/2014 at [facility] Spine Spine/Ortho / Procedures Procedure Name Priority Date/Time Associated Diagnosis Comme nts AMB EPIDURAL Routine 06/17/2022 8:00 AM Lumbar radicu lopathy STEROID INJECTION CDT S/P lumbar spinal fusion Lumbar disc herniation XR SPINE LUMBAR Routine 06/11/2022 11:32 Lumbar pain Results for this MINIMUM 4 VIEWS AM CDT procedure ar e in the results section. XR MAMMO BILAT Routine 05/21/2022 10:43 Encounter for Results for this SCREEN IMPLANT AM CDT screening mammogram proced ure are in for breast cancer the result s section. AMB EPIDURAL Routine 05/16/2022 7:30 AM Lumbar disc h erniation STEROID INJECTION CDT Lumbar radicul opathy S/P lumbar spinal fusion SCAN-OPERATIVE/PRO 05/16/2022 12:00 Resul ts for this CEDURE REPORT AM CDT procedure are in the results section. AMB EPIDURAL Routine 04/08/2022 12:00 Lumbar radiculo [...] at L5 from Last 3 Months Results XR SPINE LUMBAR MINIMUM 4 VIEWS (06/11/2022 11:32 AM CDT) Anatomical Region Laterality Modality Spine, LUMBAR SPINE Digital Radiography Specimen (Source) Anatomical Collection Method Collection Time Re ceived Time Location / / Volume Laterality 06/11/2022 11:32 AM CDT Impressions 06/12/2022 1:09 PM CDT L4-L5 PLIF. Surgical hardware is intact. No significant perihardware lucency. No hardware complication. Diffuse bony demineralization. Multileve l spondylosis. Bilateral SI joints demonstrate mild degenerative joint disease. Vertebral body heights within normal limits. Mild to moderate lumbar dextroscoliosis. Transitional lumbosacral anatomy is pres ent. Last well-formed disc space will be labeled L5-S1 with right L5 partial sacralization. Right L5 partial sacralization demonstrates possible pseudoarthrosis w ith adjacent sclerosis. Please correlate for Bertolotti syndrome. Neutral: L1-L2 grade 1 retrolisthesis measuring 2 to 3 mm. L2-L3 grade 1 retrolisthesis measuring 1 to 2 mm. L3-L4 grade 1 retrolisthesis measuring 2 mm. L4-L5 grade 1 anterolisthesis measuring 8 mm. Flexion: L4-L5 grade 1 anterolisthesis measuring 8 mm. Extension: L1-L2 grade 1 retrolisthesis measuring 2 to 3 mm. L2-L3 grade 1 retrolisthesis measuring 1 to 2 mm. L3-L4 grade 1 retrolisthesis measuring 2 mm. L4-L5 grade 1 anterolisthesis measuring 8 mm. Vascular calcifications. Cholecystectomy clips. Narrative 06/12/2022 1:09 PM CDT For Patients: As a result of the Cures Act, medical imaging exams and procedure reports are released immediately into your [facility] medical record. You may view this report before your referring provider. If you have questions, please contact your health care provider. EXAM: XR SPINE LUMBAR MINIMUM 4 VIEWS LOCATION: [facility] DATE/TIME: 06/11/2022 11:32 AM INDICATION: Lumbar Pain COMPARISON: None. TECHNIQUE: CR Lumbar Spine. Procedure Note Brandyn Zelaya MD - 06/12/2022Forma tting of this note might be different from the original. For Patients: As a result of the Cures Act, medical imaging exams and procedure reports are released immediately into your electronic medical record. You may view this report before your referring provider. If you have questions, please contact yo health care provider. EXAM: XR SPINE LUMBAR MINIMUM 4 VIEWS LOCATION: [facility] DATE/TIME: 06/11/2022 11:32 AM INDICATION: Lumbar Pain COMPARISON: None. TECHNIQUE: CR Lumbar Spine. IMPRESSION: L4-L5 PLIF. Surgical hardware is intact. No significant perihardware lucency. No hardware complication. Diffuse bony demineralization. Multileve l spondylosis. Bilateral SI joints demonstrate mild degenerative joint disease. Vertebral body heights within normal limits. Mild to moderate lumbar dextroscoliosis. Transitional lumbosacral anatomy is pres ent. Last well-formed disc space will be labeled L5-S1 with right L5 partial sacralization. Right L5 partial sacralization demonstrates possible pseudoarthrosis with adjacent sclerosis. Please correlate for Bertolot ti syndrome. Neutral: L1-L2 grade 1 retrolisthesis measuring 2 to 3 mm. L2-L3 grade 1 retrolisthesis measuring 1 to 2 mm. L3-L4 grade 1 retrolisthesis measuring 2 mm. L4-L5 grade 1 anterolisthesis measuring 8 mm. Flexion: L4-L5 grade 1 anterolisthesis measuring 8 mm. Extension: L1-L2 grade 1 retrolisthesis measuring 2 to 3 mm. L2-L3 grade 1 retrolisthesis measuring 1 to 2 mm. L3-L4 grade 1 retrolisthesis measuring 2 mm. L4-L5 grade 1 anterolisthesis measuring 8 mm. Vascular calcifications. Cholecystectomy clips. Emmanuel Sanchez MD GENERAL IMAGING XR MAMMO BILAT SCREEN IMPLANT (05/21/2022 10:43 AM CDT) Anatomical Region Laterality Modality BREASTS, Breast Left, Breast Right Bilateral Mammo graphy Specimen (Source) Anatomical Location Collection Method / Collectio n Time Received Time / Laterality Volume Impressions 05/21/2022 11:24 AM CDT ??There is no radiographic evidence for malignancy. ??Recommend annual mammograms. MAMMOGRAM ASSESSMENT: ??ACR 2 Benign PATIENTS: You will also receive a letter with your examination results in an easy to read format. ??If you have qu estions about your results, please contact your referring provider. Narrative 05/21/2022 11:24 AM CDT For Patients: As a result of the Century Cures Act, medical imaging exams and procedure reports are released immediately into your electronic medical record. You may view this report before your referring provider. If you have questions, please contact [facility] provider. XR MAMMO BILAT SCREEN IMPLANT [[id number]] CLINICAL HISTORY: ??This is an asymptoma tic 77 y.o. patient. INDICATION FOR EXAM: Mammogram Screening . TECHNIQUE: CC & MLO views were obtained. Implant displacement views were obtained. This study was evaluated with the assistance of Computer-Aided Detection. COMPARISON FILMS: Yes 11/20/20 [facility] 05/10/18 [facility] FINDINGS: ??The breasts are almost entir alejandra fatty. ??No suspicious masses or microcalcifications. ??Implant(s) within both breasts. Shannon Belcher NP MAMMO SCAN-OPERATIVE/PROCEDURE REPORT (05/16/2022 12:00 AM CDT) Narrative This result has an attachment that is no t available. Scanner OTHER AMB EPIDURAL STEROID INJECTION (04/08/2022 12:00 AM [...] For Patients: ??As a result of the Cures Act, medical imaging exams and procedure report s are released immediately into your [facility] medical record. ??You may view this report [...] sac appears patent. Stable moderate left and sake-yu-oikiupmr right neural foraminal narrowing. L5-S1: ??Moderate disc height loss and d esiccation. No spinal canal narrowing. Hheg-mn-irzlwpcq right and mild left neural foraminal narrowing. [...] thecal sac patency. Stable moderate left and yraw-gd-furqnynt right neural foraminal narrowing. 5. At L5-S1, [...] provider. If you have questions, please contact [facility] health care provider. Indication: Lumbar spine pain. [...] sac appears patent. Stable moderate left and gyob-bz-firyqpss right neural foraminal narrowing. L5-S1: Moderate disc height loss and david iccation. No spinal canal narrowing. Gahk-jg-chggjdun right and mild left neural foraminal narrowing. [...] thecal sac patency. Stable moderate left and azny-nh-txtfnlpy right neural foraminal narrowing. 5. At L5-S1, stable mild to moderate rig ht and mild left neural foraminal narrowing. Dictated by Solomon De Leon MD @ 022 9:25:28 AM (Electronically Signed) Natalicristopher Ghassanbonnie DO [place] from Last 3 Months Insurance Payer Benefit Plan / Subscriber ID Effective Dates Phone Addre ss Type Group MEDICARE - PB MEDICARE PB [id number] 2018-Presen ATTN : CLAIMS USE ONLY ONLY t [address] [place] [address] [employer] [id number] 2019-Prese [address] [place] [address] MEDICARE PART A MEDICARE PART A [id number] 1994-Presen ATTN: CLAIMS - HB USE ONLY HB ONLY t [address] [place] [address] MEDICARE PART B MEDICARE PART B [id number] 1994-Presen ATTN: CLAIMS - HB USE ONLY HB ONLY t [address] [place] [address] MEDICARE - PB MEDICARE PB [id number] 2018-Presen ATTN : CLAIMS USE ONLY ONLY t [address] [place] [address] BLUE CROSS BLUE CROSS OF [id number] 2018-Presen [address] [place] [id number] Advance Directives Documents on File Type Date Recorded Patient 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 Explanati on Healthcare Directive 10/18/2014 11:03 AM 10/17/19 15 Latest Code Status on File Code Status Date Activated Date Inactivated Comments Full Code 10/18/2014 4:35 PM 10/21/2014 4:26 PM Full Code 10/18/2014 10:18 AM 10/18/2014 4:35 PM Care Teams Stock Lifter Relationship Specialty Start Date End Date Sita Koroma PA PCP - General Physician Disease Education Specialist 12/10/17 [address] [place] [address] Yolanda Rogers NP Nurse Practitioner 12/10/[address] [place] [phone] Phoenix Pablo MD Sports Medicine 12/10/15 [address] [place] [address] Tati Winn, Surgery - Orthopedics 6 [facility] [address] [place] [address]
--- OUTSIDE RECORDS SUMMARY | 2022-06-17 08:38 | XMS_ITS | Encounter Summary ---
:1945 Author Organization [facility] Address [address] [place] [address] Care Team Providers Name Role Phone [facility] Unavailable [phone] Sita Koroma Primary Care Provider Encounter Details [...] with No / Unsure 09/09/2021 11:04 AM CARGO CHECKER someone who was confirmed or suspected to have Coronavirus / COVID-19? documented as of this encounter Plan of Treatment Not on filedocumented as of this encounter Visit Diagnoses Not on filedocumented in this encounter Care Teams Copy Writer Relationship Specialty Start Date End Date [facility] PCP - Primary Care Clinic [place] [address] [place] [address] Sita Koroma PCP - General Family Medicine 06/24/21 [address] [place] [address] documented as of this encounter
--- OUTSIDE RECORDS SUMMARY | 2022-06-17 08:38 | XMS_ITS | Encounter Summary ---
:1945 Author Organization [facility] Address [address] [place] [address] Care Team Providers Name Role Phone [facility] Unavailable [phone] Sita Koroma Primary Care Provider Encounter Details Date Type Department Care Team Description 09/30/2021 Travel Social History Tobacco Use Types Packs/Day [...] with No / Unsure 09/30/2021 10:59 AM FLOWER MAKER someone who was confirmed or suspected to have Coronavirus / COVID-19? documented as of this encounter Plan of Treatment Not on filedocumented as of this encounter Visit Diagnoses Not on filedocumented in this encounter Care Teams Media Promoter Relationship Specialty Start Date End Date [facility] PCP - Primary Care Clinic [place] [address] [place] [phone] Sita Koroma PCP - General Family Medicine 06/24/21 [address] [place] [address] documented as of this encounter
--- OUTSIDE RECORDS SUMMARY | 2022-06-17 08:38 | XMS_ITS | Encounter Summary ---
:1945 Author Organization [facility] Address [address] [place] [address] Care Team Providers Name Role Phone [facility] Unavailable [phone] Sita Koroma Primary Care Provider Reason for Visit Reason Comments Memory loss Encounter Details Date Type Department Care Team Description 09/16/2021 Occupational Therapy [facility] Nahum Kerns M cummings deficit (Primary Dx); of Neurology - [place] OT Impaired instrumental activi ties of daily living (IADL) [address] [place] [phone] Social History Tobacco Use Types Packs/Day [...] with No / Unsure 09/16/2021 11:05 AM HEALTH AND HUMAN PERFORMANCE 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 documented as of this encounter Progress Notes Nahum Kerns OT - 09/16/2021 11:00 AM CST [facility] Neurology Rehabilitation Services Outpatient Occupational Therapy Progress Note Reason for Visit: Memory loss SUBJECTIVE Tameka Hale, a 76 y.o. female presents today. Pt reports issue with lack of sleep dueto night sweats. OBJECTIVE Current Objective Findings: none today Today's Intervention: Self-Care/home management x40 mins Reviewed issue which has been occurring over the last few months (MD's aware). Pt is meeting with therapist in October to discuss titration plan for Klonopin medication. Reviewed the importance of good sleep and negative impacts of reduced sleep on cognition. Reviewed pt's current management-pt is awaking 1-2 times per night. Pt is drying sheets/pillow caseswith a chair springer. Changing clothes all of which takes approx 45 mins. Pt then struggles to fall back asleep and ultimately looses significant amount of sleep. Discussed potential options to maximize process for dealing with night sweats: 1. Specialized pajamas to reduce sweating 2. Placement of chick pads and liners on pillows for reduced 3. Trial switching beds at night. 4. Buying additional pillow cases and sheets to avoid need for drying. Pt will continue trial new strategies and talking to MD to resolve issues. Interventions discussed with patient and consent obtained. Treatment Time: Timed code treatment minutes: 40 minutes. Total time: 40 minutes. Current home exercise program list: memory, senior planner org ASSESSMENT Pt struggling today and in general due to lack of sleep and frequent night sweats-pt has not found definitive cause (potentially klonopin extended use/titration) as well as an effective management style. Pt would benefit significantly from increased daily [...] schedule, home management). PLAN Brainwaves challenges, review senior planner use. Occurrence Codes: Date of Onset of Impairment: 07/29/2021 Date of OT Care Plan Established or Reviewed: 08/05/2021 Date OT Treatment Started: 08/05/2021 TOB: 743 Nahum Kerns OT TH AND HUMAN PERFORMANCE PROFESSOR documented in this encounter Plan of Treatment Not on filedocumented as of this encounter Visit Diagnoses Diagnosis Memory deficit - Primary Memory loss Impaired instrumental activities of basilio y living (IADL) documented in this encounter Care Teams Regional Engineer Relationship Specialty Start Date End [facility] [place] [address] [place] [address] Sita Koroma PCP - General Family Medicine 06/24/21 [address] [place] [address] documented as of this encounter
--- OUTSIDE RECORDS SUMMARY | 2022-06-17 08:38 | XMS_ITS | Encounter Summary ---
:1945 Author Organization [facility] Address [address] [place] [address] Care Team Providers Name Role Phone Sita [...] with No / Unsure 09/24/2020 12:35 PM CLOCKMAKER APPRENTICE someone who was confirmed or suspected to have Coronavirus / COVID-19? documented as of this encounter Plan of Treatment Not on filedocumented as of this encounter Visit Diagnoses Not on filedocumented in this encounter Care Teams Information Systems Architect Relationship Specialty Start Date End Date Sita Koroma PCP - General Physician Cat Skinner 09/24/[address] [place] [address] documented as of this encounter
--- OUTSIDE RECORDS SUMMARY | 2022-06-17 08:38 | XMS_ITS | Encounter Summary ---
:1945 Author Organization [place] Address [address] [place] [address] Care Team Providers Name Role Phone Franci Sita Fry Primary Care Provider Unavailable Reason for Visit Reason Comments Hearing Problem Encounter Details Date Type Department Care Team Description 12/30/2021 [facility] Russel sensorineural hearing Dept [facility] loss [address] [place] [address] [address] [address] [place] [address] (Wo rk) Social History Tobacco [...] through Care Everywhere. Hearing Loss, Signs of (Equatorial Guinean)documented in this encounter ED Notes Lorna Rojas [...] Cognitive/Neuro/Behavioral WDL all;X L sided hearing loss [place] Coma Scale Best Eye Response 4-->(E4) spontaneous Best Motor Response 6-->(M6) obeys commands Best Verbal Response 5-->(V5) oriented [place] Coma Scale Score 15 Jeffrey Aponte RN [...] to prior, dated 1993. Rate 81 bpm. NM interval 210 ms. QRS duration 76 ms. [...] provider's statements to me. Jj Medrano MD 12/30/21 190 documented in this encounter Plan of Treatment [...] MR BRAIN W/O and W CONTRAST LOCATION: [facility] DATE/TIME: 12/30/2021 5:41 PM INDICATION: Hearing [...] MR BRAIN W/O and W CONTRAST LOCATION: [facility] DATE/TIME: 12/30/2021 5:41 PM INDICATION: Hearing [...] (ABNORMAL) Manual Differential (12/30/2021 5:16 PM CDT) [facility] Method Time Signature % Neutrophils 91 [...] Address City/State/ZIP Code Phon e Number [place]ORATORY [place] [address] [phone] [facility] [address] 1st floor, [...] Address City/State/ZIP Code Phon e Number [place]AT[place] [address] [phone] [facility] [address] 1[address] floor, Room 20B (ABNORMAL) Basic metabolic panel (12/30/2021 5:16 PM CDT) [facility] Method Time Signature Sodium 136 133 [...] and gender (Bernie et al., NEJM, DOI: [id number]) Specimen Anatomical Collection Method / Collection Time Recei alysa Time (Source) Location / Volume Laterality Blood STRUCTURE OF RIGHT Venipuncture / 12/30/2021 5:16 05/0 10/2021 5:33 UPPER LIMB / Unknown PM CDT PM CDT Unknown Jj Medrano MD LAB - BLOOD ORDERABLES Performing Organization Address City/State/ZIP Code Phon e Number SH LABORATORY [facility] [place] [address] Care Lab [address] 1[address] floor, Room 20B EKG 12-lead, tracing only (12/30/2021 4:46 PM CDT) Component Value Ref Range Test Analysis Performed Pathologis t Method Time At Signature Systolic Blood mmHg RADIOLOGY Pressure RESULTS Diastolic Blood mmHg RADIOLOGY Pressure RESULTS Ventricular Rate 81 BPM RADIOLOGY RESULTS Atrial Rate 81 BPM RADIOLOGY RESULTS NM Interval 210 ms RADIOLOGY RESULTS QRS Duration 76 ms RADIOLOGY RESULTS QT 386 ms RADIOLOGY RESULTS QTc 448 ms RADIOLOGY RESULTS P [place] 66 degrees RADIOLOGY RESULTS R AXIS -10 degrees RADIOLOGY RESULTS T [place] 17 degrees RADIOLOGY RESULTS Interpretation Sinus rhythm with 1st degree A-V block RADIOLOGY ECG Nonspecific ST abnormality RES ULTS Abnormal ECG When compared with ECG of 08-JAN-1994 11:42, NM interval has increased Questionable change in QRS axis ST now depressed in Anterior leads Confirmed by GENERATED REPOR T, COMPUTER ([id number]), material expeditor Kierra Stanford ([id number]) on 12/31/2021 3:45:53 AM Specimen Anatomical Collection [...] Olimpia Singer) 9 mL/kg, Intravenous, ONCE, On 5/2/2 2 at 1745, For 1 dose, Supplied by, and administered by MRI. documented in this encounter Care Teams Smearer Relationship Specialty Start Date End Date Sita Koroma PCP - General Physician Pneumatic Systems Operator 09/24/20 [address] [place] [address] documented as of this encounter
--- OUTSIDE RECORDS SUMMARY | 2022-06-17 08:38 | XMS_ITS | Encounter Summary ---
:1945 Author Organization [facility] Address [facility] [place] [address] Care Team Providers Name Role Phone [facility] Unavailable [phone] Sita Koroma Primary Care Provider Encounter Details [...] with No / Unsure 07/10/2021 1:34 PM REVENUE ENFORCEMENT COLLECTION AGENT someone who was confirmed or suspected to have Coronavirus / COVID-19? documented as of this encounter Plan of Treatment Not on filedocumented as of this encounter Visit Diagnoses Not on filedocumented in this encounter Care Teams Pediatrician Active Practice Relationship Specialty Start Date End Date [facility] PCP - Primary Care Clinic [place] [address] [place] [phone] Sita Koroma PCP - General Family Medicine 06/24/21 [address] [place] [address] documented as of this encounter
--- OUTSIDE RECORDS SUMMARY | 2022-06-17 08:38 | XMS_ITS | Encounter Summary ---
:1945 Author Organization [facility] Address [address] [place] [address] Care Team Providers Name Role Phone [facility] Unavailable [phone] Sita Koroma Primary Care Provider Encounter Details [...] with No / Unsure 08/19/2021 10:55 AM SOUND DESIGNER someone who was confirmed or suspected to have Coronavirus / COVID-19? documented as of this encounter Plan of Treatment Not on filedocumented as of this encounter Visit Diagnoses Not on filedocumented in this encounter Care Teams Coordinate Measuring Equipment Operator Relationship Specialty Start Date End Date [facility] PCP - Primary Care Clinic [place] [address] [place] [phone] Sita Koroma PCP - General Family Medicine 06/24/21 [address] [place] [address] documented as of this encounter
--- OUTSIDE RECORDS SUMMARY | 2022-06-17 08:38 | XMS_ITS | Clinical Summary ---
:1945 Author Organization [facility] Address [address] [place] [address] Care Team Providers Name Role Phone Clinic, [facility] Unavailable [phone] Sita Koroma Primary Care Provider Allergies Active Allergy Reactions Severity Noted Date Comments Codeine 06/25/2021 Penicillins 06/25/2021 Medications Medication Sig Dispensed Refills Start Date End Date Status clonazePAM (KLONOPIN) 1 Take 1 tablet by 0 Active mg oral tablet mouth three times a day. tiZANidine (ZANAFLEX) 4 Take 1 tablet by 0 Active mg oral tablet mouth as needed. furosemide (LASIX) 20 Take 20 mg by 0 Active mg oral tablet mouth once daily. traMADoL (ULTRAM) 50 mg Take 1 tablet by 0 Active oral tablet mouth every 6 (six) hours as needed. hydrOXYzine pamoate Take by mouth 0 Active (VISTARIL) 50 mg oral three times a capsule day. gabapentin (NEURONTIN) Take 300 mg by 0 Active 300 mg oral capsule mouth three times a day. valACYclovir (VALTREX) Take 1,000 mg by 0 Active 1 gram oral tablet mouth once daily. oxyCODONE-acetaminophen Take 1 tablet by 0 Active (PERCOCET) 5-325 mg mouth every 4 oral tablet (four) hours. Active Problems Problem Noted Date Cognitive change 09/04/2021 Immunizations Name Administration Dates Next Due Influenza 06/04/2021 Influenza, High Dose 08/17/2020 PFIZER 12+ YRS (PURPLE CAP) COVID VACCINE 06/04/2021, 2020, 10/13/2020 Pneumococcal 13-Mayra (Prevnar 13) 10/04/2014 Pneumococcal 23-Mayra (Pneumovax) 07/30/2011 Family History Medical History Relation Comments Heart Failure Brother Liver (Includes Intrahepatic Bile Ducts) Cancer Brother Lung Cancer Brother Lung Cancer Mother Asthma Other Heart Disease Other Breast Cancer Sister Lung Cancer Sister Relation Status Comments Brother Mother Other Sister Social History Tobacco Use Types Packs/Day Years Used Date Smoking Tobacco: Never Smokeless Tobacco: Never Tobacco Cessation: Counseling Given: No Alcohol Use Standard Drinks/Week Comments Not Currently 0 (1 standard drink = 0.6 oz pure alcoho l) Sex Assigned at Date Recorded Female 06/25/2021 3:37 PM CDT Last Filed Vital Signs Vital Sign Reading Time Taken Comments Blood Pressure - - Pulse - - Temperature - - Respiratory Rate - - Oxygen Saturation - - Inhaled Oxygen Concentration - - Weight 88.5 kg (195 lb) 07/02/2021 11:32 AM CDT Height 161.3 cm (5' 3.5) 07/02/2021 11:32 AM CDT Body Mass Index 34 07/02/2021 11:32 AM CDT Plan of Treatment Health Maintenance Due Date Last Done Comments Colonoscopy 1945 Dexa Scan 1945 10/04/2014 Hepatitis C Screening 1945 Lipid Screening 1945 Medicare Wellness Visit 1945 Yearly Review of HCD 1996 Adult Tetanus Booster 07/30/2021 07/30/2011, 11/21/2003 COVID-19 Vaccine (4 - Booster for 07/30/2021 06/04/2021, , Pfizer series) 10/13/2020 Influenza Vaccine (#1) 2022 06/04/2021, 08/17/2020, 07/31/2020, Additional history exists Pneumococcal 65+ Completed 10/04/2014, 07/30/2011 Zoster Vaccine Completed 02/27/2021, 09/11/2020 Insurance Payer Benefit Plan / Subscriber ID Effective Phone Address T ype Group Dates MEDICARE MEDICARE PART [id number] 2021-Pr [address] Medicare [address] & [address] es[id number] [place] [address] [facility] MEDICARE [id number] 2018-Pres [phone] [address] MCare SUPPLEMENT 1B ent [phone] [place] [address] Care Teams Thermal Surfacing Machine Operator Relationship Specialty Start Date End Date [facility] PCP - Primary Care Clinic [place] [address] [place] [phone] Sita Koroma PCP - General Family Medicine 06/24/21 [address] [place] [address]
--- OUTSIDE RECORDS SUMMARY | 2022-06-17 08:38 | XMS_ITS | Encounter Summary ---
:1945 Author Organization [facility] Address [address] [place] [address] Care Team Providers Name Role Phone [facility] Unavailable [phone] Sita Koroma Primary Care Provider Reason for Visit Reason Comments Memory loss Other (Routine) - Authorized Specialty Diagnoses / Procedures Referred By Contact Refer red To Contact Diagnoses Memory deficit Eli Srivastava MD Procedures [facility] OT APPOINTMENT [address] [place] [address] Referral ID Status Reason Start Date Expiration Date Visits V isits Requested Authorized [id number] Authorized 08/05/2021 8 8 Encounter Details Date Type Department Care Team Description 08/12/2021 Occupational Therapy [facility] Nahum Kerns M rhome deficit (Primary Dx); of Neurology - [place] OT Impaired instrumental activi ties of daily living (IADL) [address] [phone] Social History Tobacco Use Types Packs/Day Years Used Date Smoking Tobacco: Never Smokeless Tobacco: Never Alcohol Use Standard Drinks/Week Comments Not Currently 0 (1 standard drink = 0.6 oz pure alcoho l) Sex Assigned at Date Recorded Female 06/25/2021 3:37 PM CDT COVID-19 Exposure Response Date Recorded In the last month, have you been in contact with No / Unsure 08/12/2021 10:40 AM AEROPLANE PILOT someone who was confirmed or suspected to have Coronavirus / COVID-19? documented as of this encounter Progress Notes Nahmu Kerns OT - 08/12/2021 11:00 AM CST [facility] of Neurology Rehabilitation Services Outpatient Occupational Therapy [...] OT instructed pt to sit down with enterprise resource planner each morning and write out activities to better organize her day. OT assisted patient with completing enterprise resource planner for today as well as organize activities for rest of theweek. Pt will trial this week and report back next week. OT also answered questions regarding diagnosis, treatments, scans, and neuropsych testing. Interventions discussed with patient and consent obtained. Treatment Time: Timed code treatment minutes: 60 minutes. Total time: 60 minutes. Current home exercise program list: memory, enterprise resource planner org ASSESSMENT Pt left session very [...] home management). PLAN Contextual memory test, review enterprise resource planner use. Occurrence Codes: Date of Onset of Impairment: 07/29/2021 Date of OT Care Plan Established or Reviewed: 08/05/2021 Date OT Treatment Started: 08/05/2021 TOB: 743 Nahum Kerns OT PLANE PILOT documented in this encounter Plan of Treatment Not on filedocumented as of this encounter Visit Diagnoses Diagnosis Memory deficit - Primary Memory loss Impaired instrumental activities of basilio y living (IADL) documented in this encounter Care Teams Patent Legal Assistant Relationship Specialty Start Date End Date [facility] [place] [address] [place] [phone] Sita Koroma PCP - General Family Medicine 06/24/21 [address] [place] [address] documented as of this encounter
--- OUTSIDE RECORDS SUMMARY | 2022-06-17 08:38 | XMS_ITS | Encounter Summary ---
:1945 Author Organization [facility] Address [address] [place] [address] Care Team Providers Name Role Phone [facility] Unavailable [phone] Sita Koroma Primary Care Provider Encounter Details [...] contact Unable to assess 09/04/2021 7:21 AM TOY TRAINS AND ACCESSORIES SALESPERSON with someone who was confirmed or suspected to have Coronavirus / COVID-19? documented as of this encounter Plan of Treatment Not on filedocumented as of this encounter Visit Diagnoses Not on filedocumented in this encounter Care Teams Community Outreach Worker Relationship Specialty Start Date End Date [facility] PCP - Primary Care Clinic [place] [address] [place] [phone] Sita Kormoa PCP - General Family Medicine 06/24/21 [address] [place] [address] documented as of this encounter
--- OUTSIDE RECORDS SUMMARY | 2022-06-17 08:38 | XMS_ITS | Encounter Summary ---
:1945 Author Organization [facility] Address [address] [place] [address] Care Team Providers Name Role Phone Sita [...] on filedocumented in this encounter Care Teams Lap Hand Tool Relationship Specialty Start Date End Date Sita Koroma PCP - General Physician Edge Roller 09/24/[address] [place] [address] documented as of this encounter
--- OUTSIDE RECORDS SUMMARY | 2022-06-17 08:38 | XMS_ITS | Encounter Summary ---
:1945 Author Organization [facility] Address [address] [place] [address] Care Team Providers Name Role Phone [facility] Unavailable [phone] Sita Koroma Primary Care Provider Reason for Referral (Routine) - Closed Specialty Diagnoses / Procedures Referred By Contact Refer red To Contact Diagnoses Cognitive change Eli Srivastava MD Procedures MRI BRAIN W/O&W [address] [place] [address] Referral ID Status Reason Start Date Expiration Date Visits Requ ested Visits Authorized [id number] Closed 1 1 Reason for Visit Reason Comments Consultation Memory loss Encounter Details Date Type Department Care Team Description 07/02/2021 Office Visit [facility] [place] Srivastava MD Cognitive change (Primary Dx); Neurology - [address] Vitamin deficiency [address] [place] [address] [place] [address] [phone] Social History Tobacco Use Types Packs/Day Years [...] left eye cosed Romberg + Gait: normal tonto apache/unsatble tandem/heel/toe gait. MOCA 12/03 RECALL ASSESSMENT/PLAN #Cognitive [...] AM CDT Normal lab - nothing concerning KIN TRIMMER documented in this encounter Plan of Treatment Not on filedocumented as of this encounter Procedures Procedure Name Priority Date/Time Associated Diagnosis Comme nts VITAMIN B12 WITH Routine 07/10/2021 12:44 PM Cognitive c hange Results for this FOLATE ([facility]) PIGSKIN TRIMMER Vitamin deficiency proce dure are in the results section. documented in this encounter Results MRI BRAIN W/O&W CON (07/10/2021 2:17 PM PIGSKIN TRIMMER) Anatomical Region Laterality Modality Head Magnetic Resonance Specimen (Source) Anatomical Collection Method Collection Time Re ceived Time Location / / Volume Laterality 07/10/2021 3:37 PM PIGSKIN TRIMMER Impressions 07/10/2021 3:48 PM PIGSKIN TRIMMER 1. No acute intracranial abnormality timo dent. 2. Mild chronic microvascular ischemic c hange. 3. No hydrocephalus. 4. No intracranial mass or mass effect. No abnormal intracranial enhancement. SIGNED BY: Mo Nieves M.D. Narrative 07/10/2021 3:48 PM PIGSKIN TRIMMER EXAM: ??MRI BRAIN W/O&W CON 07/10/2021 CLINICAL [...] B12 WITH FOLATE ([facility]) (07/10/2021 12:44 PM PIGSKIN TRIMMER) athologist Signature Vitamin B12 501 232 - 1,245 [facility] 1 ([facility]) pg/mL Folate >20.0 >3.0 ng/mL [facility] 1 ([facility]) Comment: A serum folate concentration of less renée n 3.1 ng/mL is considered to represent clinical deficie ncy. Specimen Anatomical Collection Method Collection Time Receive d Time (Source) Location / / Volume Laterality Blood 07/10/2021 12:44 07/09/2021 PM PIGSKIN TRIMMER 11:00 PM PIGSKIN TRIMMER Narrative [facility] 1 - 07/11/2021 8:09 AM PIGSKIN TRIMMER Performed at: ??01 - [facility] [address] ??[id number] Crown Ironer: Darell Hill MD, Phone: ?? [phone] Eli Srivastava MD [facility] ORDERABLES Performing Organization Address City/State/ZIP Code Phon e Number [facility] 1 documented in this encounter Visit Diagnoses Diagnosis Cognitive change - Primary Other signs and symptoms involving cogni tion Vitamin deficiency Unspecified vitamin deficiency Cognitive change Other signs and symptoms involving cogni tion documented in this encounter Care Teams Office Equipment Technician Relationship Specialty Start Date End Date [facility] [place] [address] [place] [address] Sita Koroma PCP - General Family Medicine 06/24/21 [address] [place] [address] documented as of this encounter
--- OUTSIDE RECORDS SUMMARY | 2022-06-17 08:38 | XMS_ITS | Encounter Summary ---
:1945 Author Organization [facility] Address [address] [place] [address] Care Team Providers Name Role Phone [facility] Unavailable [phone] Sita Koroma Primary Care Provider Encounter Details Date Type Department Care Team Description 09/02/2021 Travel Social History Tobacco Use Types Packs/Day [...] with No / Unsure 09/02/2021 11:53 AM PIE CRIMPING MACHINE OPERATOR someone who was confirmed or suspected to have Coronavirus / COVID-19? documented as of this encounter Plan of Treatment Not on filedocumented as of this encounter Visit Diagnoses Not on filedocumented in this encounter Care Teams Junior Oracle Dba Relationship Specialty Start Date End Date [facility] PCP - Primary Care Clinic [place] [address] [place] [address] Sita Koroma PCP - General Family Medicine 06/24/21 [address] [place] [address] documented as of this encounter
--- OUTSIDE RECORDS SUMMARY | 2022-06-17 08:38 | XMS_ITS ---
:1945 Author Care Team Providers Name Role Phone SALINA BETH Primary Care Provider [phone] Allergies Code Code System Name Reaction Severity Status Onset 723 RxNorm Amoxicillin ? ? Active ? 2670 RxNorm Codeine ? ? Active ? Penicillins ? ? Active ? 768720 RxNorm Rofecoxib ? ? Active ? Notes: [...] Information not avai lable 08/31/1963 Extraction of [place] Tooth Information n ot available ? Foot/toes [...]
--- OUTSIDE RECORDS SUMMARY | 2022-06-17 08:38 | XMS_ITS | Encounter Summary ---
:1945 Author Organization [facility] Address [address] [place] [address] Care Team Providers Name Role Phone [facility] Unavailable [phone] Sita Koroma Primary Care Provider Reason for Visit Reason Comments Memory loss Encounter Details Date Type Department Care Team Description 09/09/2021 Occupational Therapy [facility] Nahum Kerns M [place] deficit (Primary Dx); of Neurology - [place] OT Impaired instrumental activi ties of daily living (IADL) [address] [place] [phone] Social History Tobacco Use Types Packs/Day [...] with No / Unsure 09/09/2021 11:04 AM CLERICAL AND ADMINISTRATIVE WORKERS someone who was confirmed or suspected to have Coronavirus / COVID-19? documented as of this encounter Progress Notes Nahum Kerns OT - 09/09/2021 11:00 AM CST [facility] Neurology Rehabilitation Services Outpatient Occupational Therapy Progress Note Reason for Visit: Memory loss SUBJECTIVE Tameka Hale, a 76 y.o. female presents today. Pt reports no new concerns OBJECTIVE Current Objective Findings: none today Today's Intervention: Therapeutic activities [id number] -reviewed time management skills and use of technical planner. Pt is doing well with logging [...] minutes. Current home exercise program list: memory, technical planner org ASSESSMENT Pt doing well overall [...] schedule, home management). PLAN Brainwaves challenges, review technical planner use. Occurrence Codes: Date of Onset of Impairment: 07/29/2021 Date of OT Care Plan Established or Reviewed: 08/05/2021 Date OT Treatment Started: 08/05/2021 TOB: 743 Nahum Kerns OT ICAL AND ADMINISTRATIVE WORKERS documented in this encounter Plan of Treatment Not on filedocumented as of this encounter Visit Diagnoses Diagnosis Memory deficit - Primary Memory loss Impaired instrumental activities of basilio y living (IADL) documented in this encounter Care Teams Oracle Database Manager Relationship Specialty Start Date End Date [facility] [place] [address] Sita Koroma PCP - General Family Medicine 06/24/21 [address] [place] [address] documented as of this encounter
--- OUTSIDE RECORDS SUMMARY | 2022-06-17 08:38 | XMS_ITS | Encounter Summary ---
:1945 Author Organization [facility] Address [address] [place] [address] Care Team Providers Name Role Phone [facility] Unavailable [phone] Sita Koroma Primary Care Provider Reason for Visit Reason Comments Follow up Encounter Details Date Type Department Care Team Description 09/04/2021 Virtual Visit [facility] [place] Srivastava MD Cognitive change Neurology - [address] (Primary Dx) [address] [place] [address] [place] [phone] Social History Tobacco Use Types Packs/Day Years Used Date Smoking Tobacco: Never Smokeless Tobacco: Never Alcohol Use Standard Drinks/Week Comments Not Currently 0 (1 standard drink = 0.6 oz pure alcoho l) Sex Assigned at Date Recorded Female 06/25/2021 3:37 PM CDT COVID-19 Exposure Response Date Recorded In the last month, have you been in contact Unable to assess 09/04/2021 7:21 AM LOAD DISPATCHER LOCAL with someone who was confirmed or suspected to have Coronavirus / COVID-19? documented as of this encounter Progress Notes Eli Srivastava MD - 09/04/2021 12:30 PM CST Last 07/02/21, 07/29/21 ? INTERIM OT on board- helping Been on Klonopin (1mg/d - night sweat at 1mg ) for 26 yr - Rxed by therapist MANAGER SUSTAINABILITY PRIOR Still has memory issue - forget appointment Forget what she placed items Forget what she discussed with her claims attorney ?? ROS Numbness??feet hands + Mother/brother [...] the left eye cosed Romberg??+ Gait: normal ki[place]/unsatble??tandem/heel/toe gait. ?? MOCA 29/30 ?? 4/5 RECALL [...] distant site at provider s home in [place], [place]. Verbal consent was given to participate [...] verified before the start of the encounter. DISPATCHER LOCAL documented in this encounter Plan of Treatment Not on filedocumented as of this encounter Visit Diagnoses Diagnosis Cognitive change - Primary Other signs and symptoms involving cogni tion documented in this encounter Care Teams Oyster Grower Relationship Specialty Start Date End Date [facility] PCP - Primary Care Clinic [place] [address] [place] [address] Sita Koroma PCP - General Family Medicine 06/24/21 [address] [place] [address] documented as of this encounter
--- OUTSIDE RECORDS SUMMARY | 2022-06-17 08:38 | XMS_ITS | Encounter Summary ---
:1945 Author Organization [facility] Address [address] [place] [address] Care Team Providers Name Role Phone Burnett [...] on filedocumented in this encounter Care Teams Sql Ssis Developer Relationship Specialty Start Date End Date [facility] PCP - Primary Care Clinic [place] [address] [place] [address] Sita Koroma PCP - General Family Medicine 06/24/21 [address] [place] [address] documented as of this encounter
--- OUTSIDE RECORDS SUMMARY | 2022-06-17 08:38 | XMS_ITS | Encounter Summary ---
:1945 Author Organization [facility] Address [address] [place] [address] Care Team Providers Name Role Phone [facility] Unavailable [phone] Sita Koroma Primary Care Provider Encounter Details [...] on filedocumented in this encounter Care Teams Edge Blacker Relationship Specialty Start Date End Date [facility] PCP - Primary Care Clinic [place] [address] [place] [phone] Sita Koroma PCP - General Family Medicine 06/24/21 [address] [place] [address] documented as of this encounter
--- OUTSIDE RECORDS SUMMARY | 2022-06-17 08:38 | XMS_ITS | Encounter Summary ---
:1945 Author Organization [facility] Address [address] [place] [address] Care Team Providers Name Role Phone [facility] Unavailable [phone] Sita Koroma Primary Care Provider Encounter Details [...] with No / Unsure 09/16/2021 11:05 AM COLLETER someone who was confirmed or suspected to have Coronavirus / COVID-19? documented as of this encounter Plan of Treatment Not on filedocumented as of this encounter Visit Diagnoses Not on filedocumented in this encounter Care Teams Order Filler Relationship Specialty Start Date End Date [facility] PCP - Primary Care Clinic [place] [address] [place] [phone] Sita Koroma PCP - General Family Medicine 06/24/21 [address] [place] [address] documented as of this encounter
--- OUTSIDE RECORDS SUMMARY | 2022-06-17 08:38 | XMS_ITS ---
[...] UR ? Final Report microbiology ? Final [place] Urine results Urology - John Aiken: [address] [facility] [address], [place] 05/25/2020 Urinalysis, ? pH-Status 6.5 ? ? [...]
--- OUTSIDE RECORDS SUMMARY | 2022-06-17 08:38 | XMS_ITS | Encounter Summary ---
:1945 Author Organization [facility] Address [address] [place] [address] Care Team Providers Name Role Phone [facility] Unavailable [phone] Sita Koroma Primary Care Provider Reason for Visit Reason Comments Memory loss Other (Routine) - Authorized Specialty Diagnoses / Procedures Referred By Contact Refer red To Contact Diagnoses Memory deficit Eli Srivastava MD Procedures [facility] OT APPOINTMENT [address] [place] [address] Referral ID Status Reason Start Date Expiration Date Visits V isits Requested Authorized [id number] Authorized 08/05/2021 8 8 Encounter Details Date Type Department Care Team Description 08/05/2021 Occupational Therapy [facility] Nahum Kerns I mpakemi instrumental activities of daily living (IADL) (Primary Dx); of Neurology - [facility] OT Memory deficit [address] [id number] Social History Tobacco Use Types Packs/Day Years Used Date Smoking Tobacco: Never Smokeless Tobacco: Never Alcohol Use Standard Drinks/Week Comments Not Currently 0 (1 standard drink = 0.6 oz pure alcoho l) Sex Assigned at Date Recorded Female 06/25/2021 3:37 PM CDT COVID-19 Exposure Response Date Recorded In the last month, have you been in contact with No / Unsure 08/05/2021 11:03 AM BUSINESS BANKER someone who was confirmed or suspected to have Coronavirus / COVID-19? documented as of this encounter Progress Notes Nahum Kerns OT - 08/05/2021 11:00 AM CST [facility] Services Outpatient Occupational Therapy Evaluation/Plan of Care Referring Provider: Eli Srivastava MD Visit Diagnosis: Impaired instrumental activities of daily living (IADL) Memory deficit - Plan: [facility] OT APPOINTMENT Orders reviewed: Yes Onset Date: 07-29-21 Referral Date: 07-29-21 Subjective Certification Dates: Start Date: 08/05/21 End Date: 11/03/21 SUBJECTIVE Reason for Visit: Memory loss Tameka Hale presents to Occupational Therapy to address changes in cognition with specific concerns regarding memory that she has been experiencing since 2018, potentially impacting performance with ADLs/IADLs. Caregiver attending session: No. Symptoms reported: Cognitive changes: poor memory, inability to remmeber appts. Prior level of function: Independent with basic ADLs/self-cares. Pt geests some assist with snow removal and transportation when she doesn't feel comfortable Current level of function: Independent with all ADLs/IADLs and Supervision/assistance with yardwork and driving. Living environment: Lives independently and in house with stairs. Education: High school. Employment: Retired. Leisure/Sport: None stated . Hearing: Intact. Patient therapy goals: See how my memory is Past Medical History: Past medical history, medication, allergies are reviewed in the EMR. Pertinent diagnostic tests: #Cognitive change- MOCA - 12/03 recall ?? Risk- multiple concussion, depression, anxiety, chronic klonopin DDx Anxiety, depression, stress ?? - On group PTSD therapy?? - MRI??brain W WO 07/10/21- No acute intracranial abnormality- mild CMVID Precautions: none See scanned/attached subjective history form for additional details on patient's presenting condition. Objective OBJECTIVE Observation: alert and cooperative/pleasant. Upper Extremity Function: Hand Dominance: Right. Range of Motion: Bilateral WNL.. Strength: Bilateral - WNL. Coordination: Bilateral: Gross and fine motor WFL Lower Extremity Function: Gait/Mobility: Independent. History of LE fracture with fluctuating status Balance: Fair. Vision/Visual Perception: Reports no concerns. Glasses: Yes. Visual Acuity: Intact with correction. Cognition: Cognitive screen: MOCA - 4/ recall 07-29-21 Today's Intervention: Self-care/Home management training for 25 minutes OT reviewed pt's current time and schedule management techniques. Pt currently uses wall calendar and some phone reminders. OT assisted pt with set up of phone alerts 1 day and 30 mins prior to all appts. OT educated and provided education on compensatory memory strategies and aides fo ruse at home. Treatment Time: Timed code treatment 25 minutes. Total time: 50 minutes. Plan for Next Visit: Contextual memory test, cog HEP, brainwaves tasks, address time management Assessment ASSESSMENT Therapist Impression/Summary: Pt presents to OP OT with reports of decreased overall memory and difficulty managing Iadls at home. Pt would benefit from a course of OP OT to further develop and learn strategies to address deficits and increase adl/Iadl functioning. Impairments: decreased cognition. Functional Limitations: managing finances/bills pay, daily schedule management and paperwork tasks. Recommendations: Patient will benefit from continued Occupational Therapy services to: Improve ability to perform ADLs and IADLs. Plan PLAN Occupational Therapy Intervention: therapeutic exercise, neuromuscular re- education, therapeutic activity and self-care/home management training. Frequency/Duration: 1 times/week for 12 weeks. Certification Period Start Date: 08/05/21 End Date: 11/03/21 Goals: Short-term goals to be met in 6 weeks: -Patient will verbalize/demonstrate understanding of cognitive home program to work towards improved cognitive functioning for ADLs/IADLs. Long-term goals to be met in 12 weeks: -Patient/family will verbalize understanding of cognitive assessment results and recommendations forsafety at home. -Patient will verbalize/demonstrate understanding of compensatory memory strategies to allow for increased independence with (i.e. medications, daily schedule, home management). Complexity Category: Moderate complexity based on the expanded review of the problems, >3 functional performing deficits, and level of clinical decision making required to determine best treatment approach with possible comorbidity that may impact performance. Comorbidities/Personal Factors/Barriers: anxiety and/or depression and cognitive/memory deficit. Potential for achieving goals: Good. Discharge Plan: Patient will be discharged from therapy when goals are achieved or patient plateaus in progress. Informed Consent: The patient was educated on the condition, planned therapy intervention, and expectation from treatment. Goals were a collaborative effort of the therapist and patient/caregiver. Risks, benefits, and alternatives to treatment have been explained. Patient and/or caregiver in agreement with the care plan. The referring provider's electronic signature certifies the medical necessity for this plan of care. Occurrence Codes: Date of Onset of Impairment: 07/29/2021 Date of OT Care Plan Established or Reviewed: 08/05/2021 Date OT Treatment Started: 08/05/2021 TOB: 742 Nahum Kerns, OT NESS BANKER documented in this encounter Plan of Treatment Not on filedocumented as of this encounter Visit Diagnoses Diagnosis Impaired instrumental activities of basilio y living (IADL) - Primary Memory deficit Memory loss documented in this encounter Care Teams Substance Abuse Counselor Relationship Specialty [facility] [place] [address] [place] [phone] Sita Koroma PCP - General Family Medicine 06/24/21 [address] [place] [address] documented as of this encounter
--- OUTSIDE RECORDS SUMMARY | 2022-06-17 08:38 | XMS_ITS | Encounter Summary ---
:1945 Author Organization [facility] Address [facility] [place] [address] Care Team Providers Name Role Phone [facility] Unavailable [phone] Sita Koroma Primary Care Provider Encounter Details [...] contact Unable to assess 07/29/2021 7:22 AM CUSTOMER QUALITY ENGINEER with someone who was confirmed or suspected to have Coronavirus / COVID-19? documented as of this encounter Plan of Treatment Not on filedocumented as of this encounter Visit Diagnoses Not on filedocumented in this encounter Care Teams House Designer Relationship Specialty Start Date End Date [facility] PCP - Primary Care Clinic [place] [address] [place] [phone] Sita Koroma PCP - General Family Medicine 06/24/21 [address] [place] [address] documented as of this encounter
--- OUTSIDE RECORDS SUMMARY | 2022-06-17 08:38 | XMS_ITS | Encounter Summary ---
:1945 Author Organization [facility] Address [address] [place] [address] Care Team Providers Name Role Phone [facility] Unavailable [phone] Sita Koroma Primary Care Provider Encounter Details [...] with No / Unsure 08/12/2021 10:40 AM BOTTLE DEALER someone who was confirmed or suspected to have Coronavirus / COVID-19? documented as of this encounter Plan of Treatment Not on filedocumented as of this encounter Visit Diagnoses Not on filedocumented in this encounter Care Teams Sports Leadership Instructor Relationship Specialty Start Date End Date [facility] PCP - Primary Care Clinic [place] [address] [place] [phone] Sita Koroma PCP - General Family Medicine 06/24/21 [address] [place] [address] documented as of this encounter
== END 2022-06-17 08:28 | disposition home or self-care (01) ==
LOC: INJ CL 08:27
PROVIDERS: PCP Physician Assistant; Visit Provider Family Medicine
DX: M54.16 Radiculopathy, lumbar region (principal); M51.36 Other intervertebral disc degeneration, lumbar region
CPT/HCPCS: 64483; J1100; Q9966

== ENCOUNTER 2023-06-09 09:48 | Outpatient (CLI) | payer MEDICARE, BC, SELFPAY | END 2023-06-09 09:49 | disposition home or self-care (01) | LOC: INJ CL 09:53 | PROVIDERS: Visit Provider Family Medicine | DX: M54.16 Radiculopathy, lumbar region (principal); M51.36 Other intervertebral disc degeneration, lumbar region | CPT/HCPCS: 64483; J1100; Q9966 ==

== ENCOUNTER 2023-07-28 09:25 | Outpatient (CLI) | payer MEDICARE, BC, SELFPAY | END 2023-07-28 09:26 | disposition home or self-care (01) | LOC: INJ CL 09:29 | PROVIDERS: Visit Provider Family Medicine | DX: M54.16 Radiculopathy, lumbar region (principal); M51.36 Other intervertebral disc degeneration, lumbar region | CPT/HCPCS: 62323; J0702; Q9966 ==

== ENCOUNTER 2023-09-22 14:16 | Outpatient (CLI) | payer MEDICARE, BC, SELFPAY ==
--- OUTSIDE RECORDS SUMMARY | 2023-09-22 14:19 | XMS_ITS | Clinical Summary ---
Author Name Unknown Organization [facility] Address [address] [place] [address] Care Team Providers Care Health Promotion Manager Name Role Phone Sita Koroma Lisandra Primary Care Provider [phone] Allergies Active Allergy Reactions Criticality Noted Date Comments Amoxicillin 09/24/2020 Penicillin G 09/24/2020 Rofecoxib 09/24/2020 Social History Tobacco Use Types Packs/Day Years Used Date Smoking Tobacco: Never Assessed Adolescent Education Answer Date Record ed Getting School Help Needed Not on file 06/07 Sex and Gender Information Value Date Recorded Sex Assigned at Not on file Gender Identity Not on file Sexual Orientation Not on file Last Filed Vital Signs Vital Sign Reading Time Taken Comments Blood Pressure 127/78 12/30/2021 6:53 PM CDT Pulse 88 12/30/2021 2:07 PM CDT Temperature 37 ??C (98.6 ??F) 12/30/2021 2:07 PM CDT Respiratory Rate 20 12/30/2021 2:07 PM CDT Oxygen Saturation 97% 12/30/2021 6:53 PM CDT Inhaled Oxygen Concentration - - Weight 90.7 kg (200 lb) 09/24/2020 12:40 PM FLAT BREAKDOWN PROCESSOR Height 160 cm (5' 3) 12/30/2021 2:07 PM CDT Body Mass Index 35.43 09/24/2020 12:40 PM FLAT BREAKDOWN PROCESSOR Plan of Treatment Health Maintenance Due Date Last Done Comments ADVANCE CARE PLANNING 1945 ANNUAL REVIEW OF HM ORDERS 1945 DEXA 1945 HEPATITIS C SCREENING 1964 LIPID 1991 RSV VACCINE ( & 60+) (1 - 1-dose 60+ series) 2006 FALL RISK ASSESSMENT 2011 MEDICARE ANNUAL WELLNESS VISIT 2011 DTAP/TDAP/TD IMMUNIZATION (2 - Td or Tdap) 07/30/2021 07/30/2011, 11/21/2003 COVID-19 Vaccine ( season) 2023 06/04/2021, 11/03/2020, 10/13/2020 INFLUENZA VACCINE (#1) 2023 , 08/17/2020, 08/17/2020, Additional history exists PHQ-2 (once per calendar year) 2023 Pneumococcal Vaccine: 65+ Years Completed 10/04/2014, 07/30/2011 ZOSTER IMMUNIZATION Completed 02/27/2021, HPV IMMUNIZATION Aged Out No longer e ligible based on patient's age to complete this topic IPV IMMUNIZATION Aged Out No longer e ligible based on patient's age to complete this topic MENINGITIS IMMUNIZATION Aged Out No l onger eligible based on patient's age to complete this topic RSV MONOCLONAL ANTIBODY Aged Out No l onger eligible based on patient's age to complete this topic Care Teams Health Promotion Manager Relationship Specialty Start Date End Date Sita Koroma PCP - General Physician Wound Care Coordinator 09/24/20
--- OUTSIDE RECORDS SUMMARY | 2023-09-22 14:19 | XMS_ITS | Referral Summary ---
Author Name Unknown Organization [facility] Address [address] [place] [address] Care Team Providers Care Travel Journalist Name Role Phone Sita Koroma Lisandra Primary Care Provider [phone] Allergies Active Allergy Reactions Criticality Noted Date [...] 90.7 kg (200 lb) 09/24/2020 12:40 PM CHILD DEVELOPMENT INSTRUCTOR Height 160 cm (5' 3) 12/30/2021 2:07 PM CDT Body Mass Index 35.43 09/24/2020 12:40 PM CHILD DEVELOPMENT INSTRUCTOR Plan of Treatment Not on file Care Teams Travel Journalist Relationship Specialty Start Date End Date Sita Koroma PCP - General Physician Projector Operator 09/24/20
--- OUTSIDE RECORDS SUMMARY | 2023-09-22 14:20 | XMS_ITS | Data Portability ---
Author Name Unknown Address [address] [place] [address] Phone [phone] Organization [facility] Address [address] [place] [address] Assessment No assessment recorded. Plan of Treatment Reminders Order Date Submit Date Provider Last Modified By Organization Details Last Modified Time Details Appointments None recorded. Lab culture, urine 2019 020 KINA [facility], [address], [place], [address], 0 12:47:03 urinalysis , dipstick 2019 020 [email or web address] Not available 0 16:16:56 Referral None recorded. Procedures None recorded. Surgeries None recorded. Imaging None recorded. Medication Orders None recorded. Patient TargetsNo targets recorded. Patient Instructions Encounter Date Encounter Id Patient Instructions Last Modified By Organization Details Last Modified Time 05/25/2020 [id number] Triage to call with culture result. [email or web address] Not available 05/25/2020 16:19:54 Reason for Referral None Reported. Results Created Date Observation Date Name Description Value Unit Range Abnormal Flag LastModifiedBy Organization Detail LastModifiedTime 05/25/20 20 05/25/2020 cultu re, urine final report microb iology result s Not Available [facility] [address], [place], [address], 05/27/2020 12:47:03 05/25/20 20 05/25/2020 urina lysis , dipst ick pH-Status 6.5 Not Available [facility] [address], [place], [address], 05/25/2020 16:07:45 05/25/20 20 05/25/2020 urina lysis , dipst ick Blood-Status Modera te Not Available [facility] [address], [place], [address], 05/25/2020 16:07:45 05/25/20 20 05/25/2020 urina lysis , dipst ick Leuko-Status Large Not Available [facility] [address], [place], [address], 05/25/2020 16:07:45 Result Notes None recorded. Problems Name Status Onset Date Resolution Date Notes Provider Name and Address Organization Details Recorded Time Urinary tract infectious disease Active 020 N39.0 : Urinary tract infection site not specified Not Available [facility] 02/16/2020 02:01:34 Problem Notes None recorded. Medical Equipment None Reported. Allergies Allergen ID Allergen Name Allergen Category Reaction Reaction Severity Criticality Documentation Date Start Date Code Code System Note Provider Name and Address Organization Details Recorded Time 871346 codeine medicatio n Not available Not available Not available 02/16/20202019 2670 RxNorm Not Available [facility] 0 00:46:20 094067 Penicilli n Not available Not available Not available Not available 02/16/20202019 17534 RxNorm Not Available [facility] 0 00:46:20 771616 Vioxx medicatio n Not available Not available Not available 02/16/20202019 73833 9 RxNorm Not Available [facility] 0 00:46:20 863492 amoxicill in medicatio n Not available Not available Not available 05/25/2020 723 RxNorm GIULIA Reyes - [facility] 0 15:49:44 Medications Name Sig Start Date Stop Date Status Note LastModified by Organization Details LastModified Time tizanidine 4 mg tablet active Not Available Not Available Not Available fluconazole 150 mg tablet active Not Available Not Available Not Available valacyclovir 1 gram tablet active Not Available Not Available Not Available clonazepam 1 mg tablet active Not Available Not Available Not Available ciprofloxacin 500 mg tablet active Not Available Not Available No t Available sulfamethoxazole 800 mg-trimethoprim 160 mg tablet active Not Available Not Availabl e Not Available pantoprazole 20 mg tablet,delayed release active Not Available Not Available Not Available oxycodone-acetamin ophen 5 mg-325 mg tablet active Not Available Not Available Not Available ciprofloxacin 0.3 % eye drops active Not Available Not Available Not Available cephalexin 500 mg capsule active Not Available Not Available Not Available hydroxyzine HCl 25 mg tablet active Not Available Not Available No t Available furosemide 20 mg tablet active Not Available Not Available Not Available estradiol 0.01% (0.1 mg/gram) vaginal cream active Not Available Not Availabl e Not Available cefdinir 300 mg capsule active Not Available Not Available Not Available betamethasone dipropionate 0.05 % lotion active Not Available Not Available Not Available oxycodone 5 mg tablet active Not Available Not Available Not Available hydroxyzine pamoate 25 mg capsule active Not Available Not Available Not Available olopatadine 0.2 % eye drops active Not Available Not Available No t Available Vitals None Recorded Social History None recorded. Functional Status None recorded. Mental Status None recorded. Family History Nothing Reported. Medical History No medical history recorded. Gynecological HistoryNo gynecological history recorded. Obstetrics History GPAL:G 0 P 0 0 0 0 Past Encounters Encounter ID Performer Location Encounter Start Date Encounter Closed Date Diagnosis/Indication [id number] Cesilia Rodriguez, PAC [facility] [address] [place] [address] 05/25/2020 15:35:37 05/30/2020 12:30:52 Dysuria Health Concerns Section Related Observation LastModified by Organization Detai ls LastModified Time None Recorded Concern Status LastModified by Organization Details LastModified Time None Recorded Advance Directives Directive None Recorded Payers Encounter Date Sequence Insurance Name Policy Number Policy Hu Covered Member ID Hu Member ID Guarantor Name 05/25/2020 1 MEDICARE [place]: [employer] Tameka Rosales [id number] Tameka Rosales Notes None Recorded OBGyn Episode No OBEpisode recorded.
--- OUTSIDE RECORDS SUMMARY | 2023-09-22 14:20 | XMS_ITS | Clinical Summary ---
Author Name Unknown Organization [facility] Address [address] [place] [address] Care Team Providers Care Beef Pluck Trimmer Name Role Phone [facility] Sita Koroma Primary Care Provider [phone] Allergies Active Allergy Reactions Criticality Noted Date Comments Codeine 06/25/2021 Penicillins 06/25/2021 Medications Medication Sig Dispensed Refills Start Date End Date Status clonazePAM (KLONOPIN) 1 mg oral tablet Take 1 tablet (1 mg) by mouth at bedtime. 0 Active tiZANidine (ZANAFLEX) 4 mg oral tablet Take 1 tablet by mouth as needed. 0 Active furosemide (LASIX) 20 mg oral tablet Take 20 mg by mouth once daily. 0 Active traMADoL (ULTRAM) 50 mg oral tablet Take 1 tablet by mouth every 6 (six) hours as needed. 0 Active hydrOXYzine pamoate (VISTARIL) 50 mg oral capsule Take 2 capsules (100 mg) by mouth at bedtime. 0 Active gabapentin (NEURONTIN) 300 mg oral capsule Take 1 capsule (300 mg) by mouth as needed. 0 Active valACYclovir (VALTREX) 1 gram oral tablet Take 1,000 mg by mouth once daily. 0 Active oxyCODONE-acetaminoph en (PERCOCET) 5-325 mg oral tablet Take 1 tablet by mouth every 4 (four) hours. 0 Active Active Problems Problem Noted Date Diagnosed Date Cognitive complaints 02/25/2023 Cognitive change 09/04/2021 Immunizations Name Administration Dates Next Due Influenza 06/04/2021 Influenza, high dose 08/17/2020 Wi-Chi 12+ Yrs MONOVALENT CO VID Vaccine (purple cap) 06/04/2021,11/03/2020,10/13/2020 Pneumococcal 13-Mayra (Prevnar 13) 10/04/2014 Pneumococcal 23-Mayra [...] Smoking Tobacco: Never Smokeless Tobacco: Never Tobacco Cessation:Counseling Given: No Alcohol Use Standard Drinks/Week Comments Not Currently 0 (1 standard drink = 0.6 oz pur e alcohol) Sex and Gender Information Value Date Recorded Sex Assigned at Female 06/25/2021 3:37 PM CDT Gender Identity Female 06/25/2021 3:37 PM CDT Sexual Orientation Straight 06/25/2021 3: 37 PM CDT Last Filed Vital Signs Vital Sign Reading Time Taken Comments Blood Pressure - - Pulse - - Temperature - - Respiratory Rate - - Oxygen Saturation - - Inhaled Oxygen Concentration - - Weight 88.5 kg (195 lb) 07/02/2021 11:32 AM CDT Height 161.3 cm (5' 3.5) 07/02/2021 11:32 AM CD T Body Mass Index 34 07/02/2021 11:32 AM CDT Plan of Treatment Health Maintenance Due Date Last Done Comments Colonoscopy 1945 Hepatitis C Screening 1945 Lipid Screening 1945 Medicare Wellness Visit 1945 Depression Assessment (PHQ-2) 1946 Yearly Review of HCD 1996 RSV (1 - 1-dose 60+ series) 2006 Dexa Scan 10/04/2016 10/04/2014 Adult Tetanus Booster 07/30/2021 07/30/2011, 004 COVID-19 Vaccine (2022-2 4 season) 2023 07/03/2022, 06/04/2021, 11/03/2020, Additional history exists Influenza Vaccine (#1) 2023 , 08/17/2020, 07/31/2020, Additional history exists Pneumococcal 65+ Completed 10/04/2014, 07/30/2011 Zoster Vaccine Completed 02/27/2021, 09/11/2020 Care Teams Beef Pluck Trimmer Relationship Specialty Start Date End Date Clinic, [facility] [address] [place] [address] PCP - Primary Care Clinic 06/24/21 Sita Koroma [address] [place] [address] PCP - General Family Medicine 06/24/21
--- OUTSIDE RECORDS SUMMARY | 2023-09-22 14:20 | XMS_ITS | Encounter Summary ---
Author Name Unknown Organization [facility] Address [address] [place] [address] Care Team Providers Care Civil Engineering Intern Name Role Phone [facility] Unavailable Sita Koroma Primary Care Provider [phone] Reason for Visit * Reason Comments Follow up Encounter Details Date Type Department Care Team (Late st Contact Info) Description 02/25/2023 3:30 PM CDT Office Visit [facility] [address] [place] [id number] Paty Dodd MD [address] [place] [address] Cognitive complaints (Primary Dx) Social History Tobacco Use Types Packs/Day Years Used Date Smoking Tobacco: Never Smokeless Tobacco: Never Alcohol Use Standard Drinks/Week Comments Not Currently 0 (1 standard drink = 0.6 oz pur e alcohol) Sex and Gender Information Value Date Recorded Sex Assigned at Female 06/25/2021 3:37 PM CDT Gender Identity Female 06/25/2021 3:37 PM CDT Sexual Orientation Straight 06/25/2021 3: 37 PM CDT documented as of this encounter Progress Notes * Paty Dodd MD - 02/25/2023 3:30 PM CDT Tameka Rosales is a 77 y.o.femalewho presents to [facility] for evaluationregarding Follow up . Subjective HPI: Previous visit patient seen Dr. Srivastava. She was last seen October/2021. Ongoing forgetfulness at least more than 3 years could not remember the word or appointments. Other issues patient's few years ago., At that time reported Occupational Therapy helped ; also she was on Klonopin 3 mg daily. Family history Sister has dementia. MR brain with and without contrast 07/2021 no acute pathology mild chronic microvascular ischemic disease TSH was reportedly normal per patient. Vitamin B12 501 in the past. She was on Klonopin for severalyears for at least 30 years. In the interim reports worsening , she buys things not knowing she already bought them. Patient recently had a home repair several people in the house its been stressful. Also recently her 's anniversary.. She is sleeping 2 hours per night. The following portions of the chart were reviewed this encounter and updated as appropriate: Tobacco Allergies Meds Problems Med Hx Surg Hx Fam Hx No past medical history on file. Past Surgical History: Procedure Laterality Date CHOLECYSTECTOMY; HX BREAST AUGMENTATION HX FOOT SURGERY 05/2019 HX TUBAL LIGATION 1978 SPINAL FUSION,ANT,EA ADNL LEV* VAGINAL HYSTERECTOMY,UTERUS 2* 10/14/1979 family history includes Asthma in an other family member; Breast Cancer in her sister; Heart Disease in an other family member; Heart Failure in her brother; Liver (Includes Intrahepatic Bile Ducts) Cancer in her brother; Lung Cancer in her brother, mother, and sister. Current Outpatient Medications Medication Sig Dispense Refill clonazePAM (KLONOPIN) 1 mg oral tablet Take 1 tablet (1 mg) by mouth at bedtime. furosemide (LASIX) 20 mg oral tablet Take 20 mg by mouth once daily. gabapentin (NEURONTIN) 300 mg oral capsule Take 1 capsule (300 mg) by mouth as needed. hydrOXYzine pamoate (VISTARIL) 50 mg oral capsule Take 2 capsules (100 mg) by mouth at bedtime. oxyCODONE-acetaminophen (PERCOCET) 5-325 mg oral tablet Take 1 tablet by mouth every 4 (four) hours. tiZANidine (ZANAFLEX) 4 mg oral tablet Take 1 tablet by mouth as needed. traMADoL (ULTRAM) 50 mg oral tablet Take 1 tablet by mouth every 6 (six) hours as needed. valACYclovir (VALTREX) 1 gram oral tablet Take 1,000 mg by mouth once daily. No current facility-administered medications for this visit. Allergies Allergen Reactions Codeine Penicillins Social History Socioeconomic History Marital status: Spouse name: Not on file Number of children: Not on file Years of education: Not on file Highest education level: Not on file Occupational History Not on file Tobacco Use Smoking status: Never Smokeless tobacco: Never Substance and Sexual Activity Alcohol use: Not Currently Drug use: Not Currently Sexual activity: Not on file Other Topics Concern Not on file Social History Narrative Not on file Social Determinants of Health Financial Resource Strain: Not on file Food Insecurity: Not on file Transportation Needs: Not on file Physical Activity: Not on file Stress: Not on file Social Connections: Not on file Intimate Partner Violence: Not on file Housing Stability: Not on file Objective There were no vitals filed for this visit. Physical Exam: Scoring 27 visuospatial/executive 4 attention 4/6 Neurologic: Mental status: alert and oriented to the current situations fund of knowledge intact. Speech and Language: Comprehension and spontaneous speech are normal. No dysarthria. Pupils equal and round visual tejada were full, Face -symmetric , Eye closure- intact. Tongue movements- normal ; physiologic tone, motor strength- moves all four limbs equally ; No tremors or involuntary movements Gait: Rising from a chair without hand support; normal associative movements of arms; casual gait Results for orders placed or performed in visit on 07/02/21 VITAMIN B12 WITH FOLATE ([facility]) Result Value Ref Range Vitamin B12 ([facility]) 501 232 - 1,245 pg/mL Folate ([facility]) >20.0 >3.0 ng/mL Problem List Items Addressed This Visit Nervous Cognitive complaints - Primary Continued complaints likely related to polypharmacy in the setting of chronic benzodiazepine use, other medications such as oxycodone/Vistaril she sparingly uses gabapentin or tramadol. Reassurance provided, I do not think her clinical presentation is related to Alzheimer's disease process she is happy to hear that She was encouraged to follow-up with the primary care and psychiatrist to minimize polypharmacy regimen Call us with any worsening or new neuro changes. Tameka was seen today for follow up. Diagnoses and all orders for this visit: Cognitive complaints Paty Dodd MD I spent 34 minutes on the date of the encounter with this patient consisting of activities before, during, and after the encounter documented in this encounter Plan of Treatment Not on file documented as of this encounter Visit Diagnoses Diagnosis Cognitive complaints- Primary Other signs and symptoms involving cognition documented in this encounter Care Teams Civil Engineering Intern Relationship Specialty Start Date End Date Clinic, [facility] [address] [place] [address] PCP - Primary Care Clinic 06/24/21 Sita Koroma [address] [place] [address] PCP - General Family Medicine 06/24/21 documented as of this encounter
--- OUTSIDE RECORDS SUMMARY | 2023-09-22 14:20 | XMS_ITS | Clinical Summary ---
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 scan of the abdomen. FINDINGS: The lung bases show mild bibasilar atelectasis. Bilateral breastimplants. No focal abnormalities identified in the visualized portions of the liver,spleen, and pancreas. 1.4 cm right adrenal nodule measures -5 Hounsfield units and is unchanged. Irregularity of the right renal cortex could be secondary to previousrenal scarring. 1.5 cm probable cyst extending off the interpolar regionof the left kidney is incompletely assessed on this noncontrast study. Cholecystectomy. No bile duct dilation. No dilated loops of bowel. Stabilization hardware in the lumbar spine. Degenerative changes of thespine. Impression : 1. 1.4 cm right adrenal adenoma is unchanged. No further evaluation isrequired. Please note that all CT scans at this facility use dose modulation,iterative reconstruction, and/or weight-based dosing when appropriate toreduce radiation dose to as low as reasonably achievable. Dictated by Sky Pak MD @ 08/28/2023 3:28:04 PM (Electronically Signed) Amy Maza MD CT * (ABNORMAL) LIPID PANEL (08/18/2023 11:07 AM [facility]) CHOLESTEROL,TOTAL 241(H) 100 - 199 mg/dL 08/18/2023 3:56 PM [facility] Comment: Cholesterol, Total Reference Ranges Desirable <200 mg/dL Borderline 200-239 mg/dL High >=240 mg/dL TRIGLYCERIDES 276(H) <150 mg/dL 08/18/2023 3:56 PM [facility] HDL CHOLESTEROL 48 >40 mg/dL 3:56 PM [facility] NON-HDL CHOLESTEROL 193(H) <145 mg/dl 08/18/2023 3:56 PM [facility] CHOL/HDL RATIO 5.02(H) <4.50 08/18/2023 3:56 PM [facility] LDL CHOLESTEROL 138(H) <=130 mg/dL 08/18/2023 3:56 PM [facility] VLDL CHOLESTEROL 55(H) <=30 mg/dL 08/18/2023 3:56 PM [facility] PROVIDER ORDERED STATUS FASTING 08/18/2023 3:56 PM [facility] Blood BLOOD SPECIMEN / Unknown Venipuncture / Unknown 08/18/2023 11:07 AM [facility] 08/18/2023 11:02 AM [facility] Amy Maza MD CHEMISTRY [facility] [address] [place] [address], * (ABNORMAL) BASIC METABOLIC PANEL (08/18/2023 11:07 AM [facility]) SODIUM 140 136 - 145 mmol/L 08/18/2023 3:56 PM [facility] POTASSIUM 4.0 3.5 - 5.1 mmol/L 08/18/2023 3:56 PM [facility] CHLORIDE 100 98 - 107 mmol/L 08/18/2023 3:56 PM [facility] CO2,TOTAL 27 22 - 29 mmol/L 08/18/2023 3:56 PM [facility] ANION GAP 13 5 - 18 08/18/2023 3:56 PM [facility] GLUCOSE 113(H) 70 - 99 mg/dL 08/18/2023 3:56 PM [facility] CALCIUM 9.8 8.8 - 10.2 mg/dL 08/18/2023 3:56 PM [facility] BUN 10 8 - 23 mg/dL 08/18/2023 3:56 PM [facility] CREATININE 0.86 0.50 - 0.90 mg/dL 08/18/2023 3:56 PM [facility] BUN/CREAT RATIO 12 10 - 20 3:56 PM [facility] eGFR 70(L) >90 mL/min/1.7 3m2 08/18/2023 3:56 PM [facility] Comment:As of 2021, eG FR is calculated by the CKD-EPI creatinine equation without race adjustment. ??eGFR can be influenced by muscle mass, exercise, and diet. ??The reported eGFR is an estimation only and is only applicable if the renal function is stable. Blood BLOOD SPECIMEN / Unknown Venipuncture / Unknown 08/18/2023 11:07 AM [facility] 08/18/2023 11:02 AM [facility] Amy Maza MD CHEMISTRY [facility] [address] [place] [address], * TRICHOMONAS, VERONIKA, AND BACTERIAL VAGINOSIS BY SIDNEY (08/06/2023 12:57 PM [facility]) VERONIKA SPECIES Negative Negative 3 10:19 PM [facility] VERONIKA GLABRATA Negative Negative 08/06/2023 10:19 PM [facility] TRICHOMONAS VVA Negative Negative 3 10:19 PM [facility] BACTERIAL VAGINOSIS Negative Negative 08/06/2023 10:19 PM [facility] Other VAGINAL SWAB / Unknown Non-Blood / Unknown 08/06/2023 12:57 PM [facility] 08/06/2023 12:58 PM [facility] Maricarmen Nathan NP [facility] [address] [place] [id number], [place] * (ABNORMAL) URINALYSIS MICROSCOPIC (08/06/2023 11:46 AM [facility]) RBC 0-2 0-2, None Seen /HPF 08/06/2023 12:33 PM [facility] WBC 51-100(A) 0-2, 3-5, None Seen /HPF 08/06/2023 12:33 PM [facility] BACTERIA Few None Seen, Rare, Few Bacteria/ HPF 08/06/2023 12:33 PM [facility] EPITHELIAL CELLS Few None Seen, Few Epi/HPF 08/06/2023 12:33 PM [facility] Urine URINE SPECIMEN / Unknown Non-Blood / Unknown 08/06/2023 11:46 AM [facility] 08/06/2023 11:46 AM [facility] Maricarmen Nathan NP URINE Performing Organization Address City/[facility]/ZIP Co de Phone Number [facility] [address] [place] [address] * URINE CULTURE (08/06/2023 11:46 AM [facility]) CULTURE 10-50,000 CFU/mL of multiple organisms, probable contaminants 08/07/2023 3:55 PM [facility] Urine URINE SPECIMEN / Unknown Non-Blood / Unknown 08/06/2023 11:46 AM [facility] 08/06/2023 11:46 AM [facility] Maricarmen Nathan NP [facility] [address] [place] [id number], [place] * (ABNORMAL) UA W/ SEDIMENT EXAM REFLEXED PER CRITERIA (08/06/2023 11:46 AM [facility]) COLOR Yellow Yellow Color 08/06/2023 12:33 PM [facility] CLARITY Clear Clear Clarity 08/06/2023 12:33 PM [facility] SPECIFIC GRAVITY,URINE 1.010 1.010, 1.015, 1.020, 1.025 08/06/2023 12:33 PM [facility] PH,URINE 6.5 6.0, 7.0, 8.0, 5.5, 6.5, 7.5, 8.5 08/06/2023 12:33 PM [facility] UROBILINOGEN, QUALITATIVE Normal Normal EU/dl 08/06/2023 12:33 PM [facility] PROTEIN, URINE Negative Negative mg/dL 08/06/2023 12:33 PM [facility] GLUCOSE, URINE Negative Negative mg/dL 08/06/2023 12:33 PM [facility] KETONES,URINE Negative Negative mg/dL 08/06/2023 12:33 PM [facility] BILIRUBIN,URI NE Negative Negative 08/06/2023 12:33 PM [facility] OCCULT BLOOD,URINE Negative Negative 08/06/2023 12:33 PM [facility] NITRITE Negative Negative 08/06/2023 12:33 PM [facility] LEUKOCYTE ESTERASE Moderate(A) Negative 08/06/2023 12:33 PM [facility] Urine URINE SPECIMEN / Unknown Non-Blood / Unknown 08/06/2023 11:46 AM [facility] 08/06/2023 11:46 AM [facility] Maricarmen Nathan NP URINE [facility] [address] [place] [address] * AMB EPIDURAL STEROID INJECTION (07/28/2023 12:00 AM [facility]) Phoenix Pablo MD NEUROLOGY ORD from Last 3 Months Advance Directives Documents on File Type Date Recorded Patient Insurance Attorney Expl anation Healthcare Directive 10/18/2014 11:03 AM 0 10/17/2014 Latest Code Status on File Code Status Date Activated Date Inactivated Comments Full Code 10/18/2014 4:35 PM 10/21/2014 4:26 PM Code Status History Code Status Date Activated Date Inactivated Comments Full Code 10/18/2014 10:18 AM 10/18/2014 4:35 PM Care Teams [employer] Relationship Specialty Start Date End Date Qi Haney NP [address] [place] [address] [place] [address] PCP - General Nurse Practitioner - Adult 09/14/23 Yolanda Rogers NP [address] [place] [phone] Nurse Practitioner 12/10/15 Phoenix Pablo MD [facility] [place] [address] Sports Medicine 12/10/15 Tati Winn, [facility] [address] [place] [address] Surgery - Orthopedics 12/11/15
--- OUTSIDE RECORDS SUMMARY | 2023-09-22 14:20 | XMS_ITS | Referral Summary ---
Author Name Unknown Organization [facility] Address [address] [place] [address] Care Team Providers Care Recruiting Manager Name Role Phone [facility] Sita Koroma Primary Care Provider [phone] Allergies Active Allergy Reactions Criticality Noted Date [...] Due Influenza 06/04/2021 Influenza, high dose 08/17/2020 [place] 12+ Yrs MONOVALENT CO VID Vaccine (purple cap) 06/04/2021,11/03/2020,10/13/2020 Pneumococcal 13-Mayra (Prevnar 13) 10/04/2014 Pneumococcal 23-Mayra (Pneumovax) 07/30/2011 Social History Tobacco Use Types Packs/Day Years [...] 07/02/2021 11:32 AM CDT Plan of Treatment Not on file Care Teams Recruiting Manager Relationship Specialty Start Date End Date Clinic, [facility] [address] [place] [phone] PCP - Primary Care Clinic 06/24/21 Sita Koroma [address] [place] [address] PCP - General Family Medicine 06/24/21
== END 2023-09-22 14:17 | disposition home or self-care (01) ==
LOC: INJ CL 14:17
PROVIDERS: Visit Provider Family Medicine
DX: M54.16 Radiculopathy, lumbar region (principal); M51.36 Other intervertebral disc degeneration, lumbar region
CPT/HCPCS: 64483; 64484; J1100; Q9966

== ENCOUNTER 2023-10-27 09:50 | Outpatient (CLI) | payer MEDICARE, BC, SELFPAY | END 2023-10-27 09:51 | disposition home or self-care (01) | LOC: INJ CL 09:51 | PROVIDERS: Visit Provider Family Medicine | DX: M54.16 Radiculopathy, lumbar region (principal) | CPT/HCPCS: 64483; 64484; J1100; Q9966 ==

== ENCOUNTER 2025-07-21 10:57 | Outpatient (CLI) | payer MEDICARE, BC, SELFPAY | END 2025-07-21 10:58 | disposition home or self-care (01) | PROVIDERS: PCP Registered Nurse Medical-Surgical; Visit Provider Family Medicine | DX: M54.16 Radiculopathy, lumbar region (principal); M51.369 Other intervertebral disc degeneration, lumbar region without mention of lumbar back pain or lower extremity pain | CPT/HCPCS: 64483; Q9966 ==